=== PATIENT | male | born 1950 | race Caucasian/White ===

== ENCOUNTER 2018-09-11 13:04 | Emergency (ER) | payer OTHER ==
--- OUTSIDE RECORDS SUMMARY | 2018-09-11 13:10 | XMS REPORT | Continuity of Care Document ---
:1950 Author Organization Interface Problems Problem Status Onset Classification Date Comments Source Date Reported [facility] Active 11/19/[address] SA[facility] Active 11/19/[address] DM (<span Active Problem 12/12/2016 [facility] ID="[id number] Medical ">Confirmed</[facility] n>) GI bleeding Resolved Problem 12/12/2016 [facility] HTN (<span Active Problem 12/12/2016 [facility] ID="[id number] Medical ">Confirmed</[facility] n>) NONTRAUMATIC Active [facility] SUBARACHNOID Medical HEMORRHAGE, [facility] Medications Medication Details Route Status Patient Ordering Order Source Instructions Provider Date Hydrochlorothiazide 25 mg, 1 tab, Inactive [facility] Route: PO, Drug 2017 Medical form: TAB, Center Daily, Dosing Weight 116.364, kg, Priority: NOW, Start date: 12/09/16 6:35:00 ROOFER, Duration: 30 day, Stop date: 01/07/17 9:00:00 CDTNotes: (Same as: Hydrodiuril) With food. Aspirin 325 MG Oral 325 mg=1 tab, Active [facility] Tablet PO, Daily, # 2017 Medical 100 tab, 2 Center Refill(s) Trial Drug Trial Drug Active [facility] (galantamine v. (galantamine v. 2017 Medical placebo) placebo), See Center Instructions, TRIAL drug [will be provided to inpatient facility], # 1 caplet, Refill(s) 0 Humulin 70/30 30 unit, SUB-Q, Active 12/08[facility] TID-Before 2017 Medical Meals, 0 Center Refill(s) ondansetron 2 mg/mL 4 mg=2 mL, IVP, Active [facility] injectable solution Q8H, PRN 2017 Medical Nausea, 0 Center Refill(s) tamsulosin 0.4 mg 0.8 mg=2 cap, Active [facility] oral capsule PO, After 2017 Medical Breakfast, 0 Center Refill(s) Aspirin 325 MG Oral 325 mg=1 tab, Inactive [place] Tablet PO, Daily, # 2017 Medical 100 tab, 2 Center Refill(s) Hydrochlorothiazide 25 mg, PO, Active [place] 25 MG Oral Tablet Daily, # 180 2017 Medical tab, 2 Center Refill(s) amLODIPine 10 mg 10 mg, PO, Active [place] oral tablet Daily, # 120 2016 Medical tab, 1 Center Refill(s) tramadol 50 mg=1 tab, Active [place] hydrochloride 50 MG PO, Q6H, PRN 2017 Medical Oral Tablet Headache 6-10, Center # 30 tab, 0 Refill(s) lisinopril 20 mg 40 mg=2 tab, Active [place] oral tablet PO, [id number], # 2017 Medical 180 tab, 1 Center Refill(s) Labetalol 10 mg, 2 mL, Inactive [place] Route: IVP, 2016 Medical Drug form: INJ, Center ONCE, Dosing Weight 116.364, kg, Priority: NOW, Start date: 12/08/16 9:35:00 ROOFER, Stop date: 12/08/16 9:35:00 ROOFER Amlodipine 10 mg, 1 tab, No Longer [place] Route: PO, Drug Active 2016 Medical form: TAB, Center Daily, Dosing Weight 116.364, kg, Priority: NOW, Start date: 12/08/16 9:33:00 ROOFER, Duration: 30 day, Stop date: 01/07/17 9:00:00 CDTNotes: (Same as: Norvasc) Insulin, Aspart, 7 unit, 0.07 No Longer [place] Human mL, Route: Active 2016 Medical SUB-Q, Drug Center form: SOLN, TID-Before Meals, Dosing Weight 116.364, kg, Start date: 12/07/16 11:30:00 ROOFER, Stop date: 01/06/17 7:30:00 CDTNotes: Roll in palms of hands gently; Do not shake vigorously. (Same as: NovoLOG) "single patient use only" WASTE: F/P - Black; E - Municipal Trash Bin Stable for 28 days at room temperature. Expires in days from D ate Melatonin 3 mg, 1 tab, No Longer [facility] Route: PO, Drug Active 2016 Medical form: TAB, Center Bedtime, Dosing Weight 116.364, kg, PRN Sleep, Start date: 12/07/16 9:03:00 ROOFER, Duration: 30 day, Stop date: 01/06/17 9:02:00 CDTNotes: (Same as: Melatonin) Dextrose 50% 25 mL, Route: Inactive [facility] Syringe IVP, Dosing 2016 Medical Weight 116.364, Center kg, PRN, PRN Blood Glucose Results, Start date: 12/07/16 9:02:00 ROOFER, Duration: 30 day, Stop date: 01/06/17 10:01:00 CDT Glucagon 1 mg, Route: Inactive [facility] IM, PRN, Dosing 2016 Medical Weight 116.364, Center kg, PRN Blood Glucose Results, Start date: 12/07/16 9:02:00 ROOFER, Duration: 30 day, Stop date: 01/06/17 10:01:00 CDT Nimodipine 3 MG/ML 60 mg, 2 mL, No Longer [facility] Oral Solution Route: PO, Drug Active 2016 Medical form: SUSP, Center Q4H, Dosing Weight 116.364, kg, Start date: 12/07/16 0:00:00 ROOFER, Duration: 30 day, Stop date: 01/05/17 20:00:00 CDTNotes: ( Famotidine 20 mg, 2 mL, No Longer [facility] Route: IV, Drug Active 2016 Medical form: INJ, Center ONCE, Dosing Weight 116.364, kg, Start date: 12/06/16 23:34:00 ROOFER, Stop date: 12/06/16 23:34:00 CSTNotes: (Same as: Pepcid) Can be dilute in 5-10cc NS IVP: Slow IV push over at least 2 minutes. lisinopril 40 mg, 2 tab, No Longer [facility] Route: PO, Drug Active 2016 Medical form: TAB, Center [id number], Start date: 12/06/16 18:00:00 ROOFER, Duration: 30 day, Stop date: 01/05/17 6:00:00 CDTNotes: (Same as: Prinivil, Zestril) benazepril 40 mg, Route: Inactive [facility] PO, Drug form: 2016 Medical TAB, BID, Center Dosing Weight 116.364, kg, Start date: 12/06/16 17:00:00 ROOFER, Duration: 30 day, Stop date: 01/05/17 9:00:00 CDT Aspirin 325 MG Oral 325 mg=1 tab, No Longer [place] Tablet PO, Daily, # Active 2016 Medical 100 tab, 2 Center Refill(s), other Amlodipine 5 mg, Route: Inactive [facility] PO, Drug form: 2016 Medical TAB, Daily, Center Dosing Weight 116.364, kg, Priority: NOW, Start date: 12/06/16 12:56:00 ROOFER, Duration: 30 day, Stop date: 01/05/17 9:00:00 CDT Insulin regular 3 unit, 0.03 No Longer [place] mL, Route: Active 2016 Medical SUB-Q, Drug Center form: SOLN, TID-Before Meals, Dosing Weight 116.364, kg, PRN Blood Glucose Results, Start date: 12/06/16 11:28:00 ROOFER, Duration: 30 day, Stop date: 01/05/17 11:27:00 CDTNotes: (Same as: Humulin R) Roll in palms of hands gently; Do not shake vigorously. "single patient use only" (Restricted to patients requiring a dose > 60 units) WASTE: F/P - Black; E - Outcome Referrals Trash Bin Stable for 28 days at room temperature Expires in days from D ate Glucagon 1 mg, Route: No Longer [facility] IM, Drug form: Active 2016 Medical PDR/INJ, PRN, Center Dosing Weight 116.364, kg, PRN Blood Glucose Results, Start date: 12/06/16 11:28:00 ROOFER, Duration: 30 day, Stop date: 01/05/17 12:27:00 CDT Dextrose 50% 25 gm, 50 mL, No Longer [place] Syringe Route: IVP, Active 2017 Medical Drug Form: INJ, Center Dosing Weight 116.364, kg, PRN, PRN Blood Glucose Results, Start date: 12/06/16 11:28:00 ROOFER, Duration: 30 day, Stop date: 01/05/17 12:27:00 CDT potassium chloride 10 mEq, 50 mL, Inactive [facility] Route: IVPB, 2017 Medical Drug form: INJ, Center Q1H, Dosing Weight 116.364, kg, Total Dose=20 meq, Start date: 12/06/16 6:00:00 ROOFER, Duration: 2 doses or times, Stop date: 12/06/16 7:00:00 ROOFER, Peripheral LineNotes: (Same as: KCL) Infuse over 2 hours. potassium chloride 60 mEq, Route: Inactive [facility] PO, ONCE, 2016 Medical Dosing Weight Center 116.364, kg, Start date: 12/06/16 5:04:00 ROOFER, Stop date: 12/06/16 5:04:00 ROOFER Sodium Chloride 1,000 mL, 1,000 Inactive [place] 0.154 MEQ/ML ml/hr, Infuse 2017 Medical Injectable Solution Over: 1 hr, Center Route: IV, 1,000, Drug form: INJ, ONCE, Priority: STAT, Dosing Weight 116.364 kg, Start date: 12/03/16 10:22:00 ROOFER, Duration: 1 doses or times, Stop date: 12/03/16 10:22:00 ROOFER Sodium Chloride 500 mL, 500 Inactive [place] 0.154 MEQ/ML ml/hr, Infuse 2017 Medical Injectable Solution Over: 1 hr, Center Route: IV, 500, Drug form: INJ, ONCE, Dosing Weight 116.364 kg, Start date: 12/03/16 5:48:00 ROOFER, Stop date: 12/03/16 5:48:00 ROOFER Sodium Chloride 1,000 mL, 1,000 Inactive [facility] [place] 0.154 MEQ/ML ml/hr, Infuse 2017 Medical Injectable Solution Over: 1 hr, Center Route: IV, ONCE, Priority: STAT, Dosing Weight 116.364 kg, Start date: 12/03/16 5:47:00 ROOFER, Duration: 1 doses or times, Stop date: 12/03/16 5:47:00 ROOFER Fleet Enema 133 mL, Route: Inactive [facility] MA, Drug Form: 2017 Medical KAYLA, Dosing Center Weight 116.364, kg, ONCE, Start date: 12/03/16 2:35:00 ROOFER, Stop date: 12/03/16 2:35:00 ROOFER, For Constipation > 12 years, Pediatric Dosing Fleet Enema 133 mL, Route: Inactive [facility] MA, Drug Form: 2017 Medical SOLN, Dosing Center Weight 116.364, kg, ONCE, Start date: 12/02/16 20:43:00 ROOFER, Stop date: 12/02/16 20:43:00 ROOFER, For Constipation > 12 years, Pediatric Dosing [place] Enema 133 mL, Route: No Longer [facility] MA, Drug Form: Active 2017 Medical KAYLA, Dosing Center Weight 116.364, kg, ONCE, Start date: 12/02/16 18:47:00 ROOFER, Stop date: 12/02/16 18:47:00 ROOFER, For Constipation > 12 years, Pediatric Dosing ceFAZolin 2 gm, Route: Inactive [facility] IV, Drug form: 2017 Medical PDR/INJ, ONCE, Center Start date: 12/02/16 11:45:00 ROOFER, Stop date: 12/02/16 11:45:00 CSTNotes: (Same As: Ancef, Kefzol) MEDICATION WASTE Product Size: 1000 mg Product Wasted: ___ mg Ancef + sodium 2 gm, Route: Inactive [place] chloride 0.9% INJ IVPB, Drug 2017 Medical 100 mL form: PDR/INJ, Center ONCE, Dosing Weight 116.364, kg, Start date: 12/02/16 11:20:00 ROOFER, Duration: 1 doses or times, Stop date: 12/02/16 11:20:00 ROOFER, Surgical Prophylaxis Only; For patients Notes: (Same As: Ancef, Kefzol) MEDICATION WASTE Product Size: 1000 mg Product Wasted: ___ mg magnesium citrate 300 mL, Route: Inactive [facility] 58.2 MG/ML Oral PO, Drug Form: 2017 Medical Solution LIQ, Dosing Center Weight 116.364, kg, ONCE, Start date: 12/02/16 10:40:00 ROOFER, Stop date: 12/02/16 10:40:00 CSTNotes: (Same as: Citrate of Magnesia) Concentration: 1.745 gm / 30 mL Ancef + sodium 2 gm, Route: Inactive [place] chloride 0.9% INJ IVPB, ONCE, 2016 Medical 100 mL Dosing Weight Center 116.364, kg, Start date: 12/02/16 9:13:00 ROOFER, Duration: 1 doses or times, Stop date: 12/02/16 9:13:00 ROOFER, Surgical Prophylaxis Only; For patients Notes: (Same As: Ancef, Kefzol) Cefazolin FOR IV SET ONLY MEDICATION WASTE Product Size: 1000 mg Product Wasted: ___ mg Insulin regular 10 unit, 0.1 Inactive [place] mL, Route: 2016 [facility], Drug Center form: SOLN, Q6H, Dosing Weight 116.364, kg, Start date: 12/02/16 8:00:00 ROOFER, Duration: 30 day, Stop date: 01/01/17 6:00:00 CDTNotes: (Same as: Humulin R) Roll in palms of hands gently; Do not shake vigorously. "single patient use only" (Restricted to patients requiring a dose > 60 units) WASTE: F/P - Black; E - Municipal Trash Bin Stable for 28 days at room temperature Expires in days from D ate insulin, isophane 30 unit, 0.3 No Longer [place] mL, Route: Active 2016 [facility], Drug Center form: INJ, [id number], Dosing Weight 116.364, kg, Start date: 12/02/16 8:00:00 ROOFER, Stop date: 01/01/17 6:00:00 CDTNotes: Roll in palms of hands gently; Do not shake vigorously. (Same as: Humulin N) Do not hold insulin without contacting prescriber WASTE: F/P - Black; E - Municipal Trash Bin Stable for 28 days at room temperature Expires in days from D ate Vancomycin 1.75 gm, Route: No Longer [place] IVPB, ABXQ8H, Active 2016 Medical Dosing Weight Center 116.364, kg, Start date: 12/02/16 8:00:00 ROOFER, Duration: 30 day, Stop date: 01/01/17 0:00:00 CDTNotes: TIME CRITICAL MEDICATION (Same As: Vancocin) Infusion rate 2001 mg: infuse over 2.5 hours MEDICATION WASTE Product Size: 1000 mg Product Wasted: ___ mg Norepinephrine 16 mg, 16 mL, No Longer [place] Rate: Titrate, Active 2016 Medical Start Dose: 0.1 Center microgram/kg/mi n, Titration: 0.05 microgram/kg/mi n every 2 - 5 minutes, Goal(s): MAP >=65 mmHg, Max Dose: 2 microgram/kg/mi n, Route: IV, Dosing Weight 116.364 kg, Total Volume: 250, Start date: 12/02/16 1:...Notes: Not for direct administration - DILUTE. Protect from light. (Same as:Levophed). Administer by either central venous catheter or peripherally-in serted central catheter (PICC) line. docusate sodium 100 mg, 1 cap, No Longer [place] Route: PO, Drug Active 2016 Medical form: CAP, Center Q12H, Dosing Weight 116.364, kg, Start date: 12/01/16 21:00:00 ROOFER, Stop date: 12/31/16 9:00:00 CDTNotes: (Same as: Colace) (Do Not Crush) Vancomycin 1,500 mg, No Longer [facility] Route: IVPB, Active 2016 Medical ABXQ8H, Dosing Center Weight 116.364, kg, Start date: 12/01/16 19:00:00 ROOFER, Duration: 30 day, Stop date: 12/31/16 11:00:00 CDTNotes: TIME CRITICAL MEDICATION (Same As: Vancocin) Infusion rate 2001 mg: infuse over 2.5 hours MEDICATION WASTE Product Size: 1000 mg Product Wasted: ___ mg Insulin regular 10 unit, 0.1 Inactive [place] mL, Route: 2016 [facility] [place] [facility] SUB-Q, Drug Center form: SOLN, Q8H, Dosing Weight 116.364, kg, Start date: 12/01/16 16:00:00 ROOFER, Duration: 30 day, Stop date: 12/31/16 8:00:00 CDTNotes: (Same as: Humulin R) Roll in palms of hands gently; Do not shake vigorously. "single patient use only" (Restricted to patients requiring a dose > 60 units) WASTE: F/P - Black; E - Municipal Trash Bin Stable for 28 days at room temperature Expires in days from D ate Rocuronium 100 mg, 10 mL, Inactive [facility] Route: IVP, 2016 Medical Drug form: INJ, Center ONCE, Dosing Weight 116.364, kg, Start date: 12/01/16 13:36:00 ROOFER, Stop date: 12/01/16 13:36:00 CSTNotes: (Same as: Imani) Versed 4 mg, 4 mL, Inactive [facility] Route: IV, Drug 2016 Medical form: INJ, Center ONCE, Dosing Weight 116.364, kg, Start date: 12/01/16 13:35:00 ROOFER, Stop date: 12/01/16 13:35:00 CSTNotes: (Same as: Versed) MEDICATION WASTE Product Size: 2 mg Product Wasted: _2__ mg Vancomycin 2 gm, Route: Inactive [facility] IV, ONCE, 2016 Medical Dosing Weight Center 116.364, kg, Start date: 12/01/16 10:07:00 ROOFER, Stop date: 12/01/16 10:07:00 CSTNotes: TIME CRITICAL MEDICATION (Same As: Vancocin) Infusion rate 2001 mg: infuse over 2.5 hours MEDICATION WASTE Product Size: 1000 mg Product Wasted: ___ mg Isolyte S PH-7.4 2,000 mL, 0 Inactive [facility] (Bolus) IV ml/hr, Route: 2017 Medical IV, Drug Form: Center SOLN, Dosing Weight 116.364, kg, ONCE, Start date: 12/01/16 10:04:00 ROOFER, Stop date: 12/01/16 10:04:00 CSTNotes: (Same as: Isolyte S PH 7.4) Zosyn 3.375 gm, No Longer [place] Route: IVPB, Active 2016 Medical Drug form: Center PDR/INJ, ABXQ6H, Dosing Weight 116.364, kg, Start date: 12/01/16 10:00:00 ROOFER, Stop date: 12/07/16 23:59:00 CSTNotes: (Same as: Zosyn) Dosing based on Piperacillin component MEDICATION WASTE Product Size: 3375 mg Product Wasted: ___ mg Vancomycin 2,000 mg, Inactive [facility] Route: IVPB, 2016 Medical Drug form: INJ, Center ABXQ8H, Dosing Weight 116.364, kg, Start date: 12/01/16 10:00:00 ROOFER, Duration: 30 day, Stop date: 12/31/16 2:00:00 CDT Fentanyl 1,000 No Longer [place] microgram, 20 Active 2016 Medical mL, Rate: Center Titrate, Start Dose: 50 microgram/hr, Titration: 25 microgram/hour every 15 minutes, Goal(s): RASS -1, Max Dose: 300 microgram/hr, Route: IV, Dosing Weight 116.364 kg, Total Volume: 20, Start date: 12/01/16 9:51:00 ROOFER, D... Rocuronium 100 mg, 10 mL, Inactive [place] Route: IVP, 2016 Medical Drug form: Center SOLN, ONCE, Dosing Weight 116.364, kg, Start date: 12/01/16 9:51:00 ROOFER, Stop date: 12/01/16 9:51:00 CSTNotes: (Same as: Zemeron) Etomidate 40 mg, 20 mL, Inactive [facility] Route: IV, Drug 2016 Medical form: INJ, Center ONCE, Dosing Weight 116.364, kg, Start date: 12/01/16 9:49:00 ROOFER, Stop date: 12/01/16 9:49:00 CSTNotes: (Same as: Amidate). Per state nursing law etomidate can only be given by a nurse if patient is intubated or being intubated (unless the nurse is a CREATIVE SERVICES SPECIALIST). Norepinephrine 16 mg, 16 mL, No Longer [place] Rate: Titrate, Active 2016 Medical Start Dose: 0.1 Center microgram/kg/mi n, Titration: 0.05 microgram/kg/mi n every 2 - 5 minutes, Goal(s): MAP >=65 mmHg, Max Dose: 1 microgram/kg/mi n, Route: IV, Dosing Weight 116.364 kg, Total Volume: 250, Start date: 12/01/16 7:...Notes: Not for direct administration - DILUTE. Protect from light. (Same as:Levophed). Administer by either central venous catheter or peripherally-in serted central catheter (PICC) line. Isolyte S (PH 7.4) 1,000 mL, Rate: Inactive [place] 1000 mL 1,000 mL 1,000 ml/hr, 2016 Medical Infuse over: 1 Center hr, Route: IV, Dosing Weight 116.364 kg, Total Volume: 1,000, Start date: 12/01/16 5:58:00 ROOFER, Duration: 1 doses or times, Stop date: 12/01/16 6:57:00 CSTNotes: (Same as: Isolyte S PH 7.4) albumin human 5% 25 gm, 500 mL, Inactive [place] intravenous 500 ml/hr, 2016 Medical solution Route: IV, Drug Center Form: INJ, Dosing Weight 116.364, kg, ONCE, Start date: 12/01/16 5:58:00 ROOFER, Stop date: 12/01/16 5:58:00 CSTNotes: LOT#: Mfg: WASTE: F/P - Red; E -Red (Same as: Albuminar) "blood product derivative" Fentanyl 50 microgram, 1 No Longer [place] mL, Route: IV, Active 2016 Medical Drug form: INJ, Center Q5Min, Dosing Weight 116.364, kg, PRN Pain Score 6-10, Start date: 11/30/16 23:54:00 ROOFER, Duration: 2 doses or times, Stop date: 12/02/16 0:00:00 ROOFER, Pediatric Dosing; For procedure; > 50 kgNotes: (Same as: Sublimaze) Preservative free. Benadryl 50 mg, Route: Inactive [facility] IVP, ONCE, 2016 Medical Dosing Weight Center 116.364, kg, Start date: 11/30/16 15:29:00 ROOFER, Stop date: 11/30/16 15:29:00 ROOFER Iohexol 80 mL, Route: Inactive [place] IVP, Drug Form: 2016 Medical SOLN, Dosing Center Weight 116.364, kg, ONCALL, STAT, Start date: 11/30/16 15:17:00 ROOFER, Duration: 1 doses or times, Dose=2.2ml/kg, Max [id number] -- "To be infused by Radiology Staff ONLY" chlorhexidine 15 ml, Route: No Longer [place] gluconate 1.2 MG/ML S&SPIT, Q4H, Active 2016 [facility] [place] [facility] Mouthwash Drug form: LIQ, [place] Start date: 11/30/16 12:00:00 ROOFER, Duration: 30 day, Stop date: 12/30/16 8:00:00 CDTNotes: (Same As: Peridex) sodium chloride 1,000 mL, Rate: No Longer [facility] 0.9% 1000 ml INJ 150 ml/hr, Active 2016 [facility] 1,000 mL Infuse over: Center 6.7 hr, Route: IV, Dosing Weight 116.364 kg, Total Volume: 1,000, Start date: 11/30/16 10:24:00 ROOFER, Duration: 30 day, Stop date: 12/30/16 10:23:00 CDT Nicardipine 5 mg, 2 mL, Inactive [place] Route: 2016 Medical INTRAARTERIAL, Center Drug form: INJ, ONCE, Dosing Weight 116.364, kg, Start date: 11/30/16 8:22:00 ROOFER, Stop date: 11/30/16 8:22:00 CSTNotes: (Same as: Cardene IV) Verapamil 10 mg, 4 mL, Inactive [facility] Route: 2017 Medical INTRAARTERIAL, Center Drug form: INJ, ONCE, Dosing Weight 116.364, kg, Start date: 11/30/16 8:22:00 ROOFER, Stop date: 11/30/16 8:22:00 CSTNotes: (Same As: Calan, Isoptin) "Avoid grapefruit and grapefruit juice" nitroglycerine nitroglycerine, Inactive [place] 200 mcg, Drug 2016 Medical form: [facility], [place] Route: INTRAARTERIAL, ONCE, 11/30/16 8:21:00 ROOFER, Stop date: 11/30/16 8:21:00 ROOFER Omnipaque 300 150 mL, Route: Inactive [facility] INTRAARTERIAL, 2017 Medical Drug Form: [place] SOLN, Dosing Weight 116.364, kg, ONCE, Start date: 11/30/16 8:21:00 ROOFER, Stop date: 11/30/16 8:21:00 CSTNotes: (Same as:Omnipaque 350). WASTE: F/P - Black; E - Municipal Trash Bin sodium chloride 953 mL, Rate: No Longer [facility] 0.9% 1000 ml INJ 150 ml/hr, Active 2016 Medical 953 mL + sodium Infuse over: Center chloride 188 mEq 6.7 hr, Route: IV, Dosing Weight 116.364 kg, Total Volume: 1,000, Start date: 11/30/16 4:04:00 ROOFER, Stop date: 12/30/16 4:03:00 CDT, For IMU and ICU use only. See Order Comments!! Nimodipine 60 mg, 2 cap, No Longer [place] Route: PO, Drug Active 2016 Medical form: CAP, Q4H, Center Dosing Weight 116.364, kg, Start date: 11/30/16 4:00:00 ROOFER, Stop date: 12/30/16 0:00:00 CDTNotes: (Same as:Nimotop) Water 1000 MG/ML 953 mL, Rate: Inactive [place] Injectable Solution 100 ml/hr, 2017 Medical Infuse over: 10 Center hr, Route: IV, Dosing Weight 116.364 kg, Total Volume: 1,000, Start date: 11/30/16 3:56:00 ROOFER, Duration: 30 day, Stop date: 12/30/16 3:55:00 CDT, For IMU and ICU use only. See Order Comments!! Norepinephrine 8 mg, 8 mL, No Longer [facility] Rate: Titrate, Active 2016 Medical Start Dose: 0.1 Center microgram/kg/mi n, Titration: 0.05 microgram/kg/mi n every 2 - 5 minutes, Goal(s): MAP >=120 mmHg, Max Dose: 1 microgram/kg/mi n, Route: IV, Dosing Weight 116.364 kg, Total Volume: 250, Start date: 11/30/16 3:3...Notes: Not for direct administration - DILUTE. Protect from light. (Same as:Levophed). Administer by either central venous catheter or peripherally-in serted central catheter (PICC) line. Fentanyl 100 microgram, Inactive [facility] Route: IV, 2016 Medical ONCE, Dosing Center Weight 116.364, kg, Start date: 11/29/16 19:26:00 ROOFER, Stop date: 11/29/16 19:26:00 ROOFER Water 1000 MG/ML 953 mL, Rate: No Longer [facility] Injectable Solution 50 ml/hr, Active 2016 Medical Infuse over: 20 Center hr, Route: IV, Dosing Weight 116.364 kg, Total Volume: 1,000, Start date: 11/29/16 16:42:00 ROOFER, Duration: 30 day, Stop date: 12/29/16 16:41:00 CDT, For IMU and ICU use only. See Order Comments!! Norepinephrine 8 mg, 8 mL, No Longer [facility] Rate: Titrate, Active 2016 Start Dose: 0.1 Center microgram/kg/mi n, Titration: 0.05 microgram/kg/mi n every 2 - 5 minutes, Goal(s): MAP >=110 mmHg, Max Dose: 1 microgram/kg/mi n, Route: IV, Dosing Weight 116.364 kg, Total Volume: 250, Start date: 11/29/16 16:...Notes: (Same as:Levophed). Verapamil 10 mg, Route: Inactive [facility] INTRAARTERIAL, 2016 Medical ONCE, Dosing Center Weight 116.364, kg, Start date: 11/29/16 14:44:00 ROOFER, Stop date: 11/29/16 14:44:00 ROOFER nitroglycerine nitroglycerine, Inactive [facility] 200 mcg, Route: 2016 Medical INTRAARTERIAL, Center ONCE, 11/29/16 14:43:00 ROOFER, Stop date: 11/29/16 14:43:00 ROOFER Nicardipine 5 mg, 2 mL, Inactive [place] Route: 2017 Medical INTRAARTERIAL, Center Drug form: INJ, ONCE, Dosing Weight 116.364, kg, Start date: 11/29/16 14:43:00 ROOFER, Stop date: 11/29/16 14:43:00 CSTNotes: (Same as: Cardene IV) Verapamil 10 mg, Route: Inactive [facility] INTRAARTERIAL, 2016 Medical ONCE, Dosing Center Weight 116.364, kg, Start date: 11/29/16 14:43:00 ROOFER, Stop date: 11/29/16 14:43:00 ROOFER Milrinone Milrinone, 5 Inactive [facility] mg, Route: 2016 Medical INTRAARTERIAL, Center ONCE, 11/29/16 14:43:00 ROOFER, Stop date: 11/29/16 14:43:00 ROOFER Omnipaque 350 150 ml, Route: Inactive [facility] INTRAARTERIAL, 2016 Medical Drug Form: Center SOLN, Dosing Weight 116.364, kg, ONCE, Start date: 11/29/16 13:35:00 ROOFER, Stop date: 11/29/16 13:35:00 CSTNotes: (Same as:Omnipaque 350). WASTE: F/P - Black; E - Municipal Trash Bin Labetalol 10 mg, 2 mL, No Longer [facility] Route: IVP, Active 2016 Medical Drug form: INJ, Center Q15Min, Dosing Weight 116.364, kg, PRN Hypertension, Start date: 11/29/16 11:49:00 ROOFER, Duration: 30 day, Stop date: 12/29/16 12:48:00 CDT Hydralazine 20 mg, 1 mL, No Longer [facility] Route: IVP, Active 2016 Medical Drug form: INJ, Center Q4H, Dosing Weight 116.364, kg, PRN Hypertension, for SBP >150, Start date: 11/29/16 11:49:00 ROOFER, Duration: 30 day, Stop date: 12/29/16 11:48:00 CDTNotes: (Same as: Apresoline) Push over 5 minutes Isolyte S (PH 7.4) 3,000 mL, Rate: Inactive [facility] 1000 mL 3,000 mL 1,000 ml/hr, 2017 Medical Infuse over: 3 Center hr, Route: IV, Dosing Weight 116.364 kg, Total Volume: 3,000, Start date: 11/29/16 11:35:00 ROOFER, Duration: 1 doses or times, Stop date: 11/29/16 14:34:00 CSTNotes: (Same as: Isolyte S PH 7.4) Ancef + sodium 2 gm, Route: Inactive [facility] chloride 0.9% INJ IVPB, ONCE, 2017 Medical 100 mL Dosing Weight Center 116.364, kg, Start date: 11/29/16 11:30:00 ROOFER, Duration: 1 doses or times, Stop date: 11/29/16 11:30:00 ROOFER, Surgical Prophylaxis Only; For patients Notes: (Same As: Ancef Kefzol) Cefazolin FOR IV SET ONLY MEDICATION WASTE Product Size: 1000 mg Product Wasted: ___ mg Morphine 5.8182 mg, Inactive [facility] Route: IVPB, 2016 Medical Q4H, Dosing Center Weight 116.364, kg, PRN Pain Score 7-10, Start date: 11/29/16 11:29:00 ROOFER, Duration: 30 day, Stop date: 12/29/16 11:28:00 CDT Amlodipine 5 mg, 1 tab, No Longer [facility] Route: PO, Drug Active 2016 Medical form: TAB, Center Daily, Dosing Weight 116.364, kg, Start date: 11/29/16 9:00:00 ROOFER, Duration: 30 day, Stop date: 12/28/16 9:00:00 CDTNotes: (Same as: Norvasc) Dexamethasone 1 mg, 1 tab, No Longer [facility] Route: PO, Drug Active 2016 Medical form: TAB, Center Q12H, Dosing Weight 116.364, kg, Start date: 11/28/16 21:00:00 ROOFER, Duration: 30 day, Stop date: 12/28/16 9:00:00 CDTNotes: Give with food. (Same As: Decadron) benazepril 40 mg, 2 tab, No Longer [facility] Route: PO, Drug Active 2016 Medical form: TAB, BID, Center Dosing Weight 116.364, kg, Start date: 11/28/16 21:00:00 ROOFER, Duration: 30 day, Stop date: 12/28/16 17:00:00 CDTNotes: Non-Formulary Drug (Same As: Lotensin) Labetalol 20 mg, 4 mL, No Longer [place] Route: IVP, Active 2016 Medical Drug form: INJ, Center Q1H, Dosing Weight 116.364, kg, PRN Hypertension, Priority: Routine, Start date: 11/28/16 19:55:00 ROOFER, Duration: 30 day, Stop date: 12/28/16 20:54:00 CDT, For MAP > 130; HOLD for pulse Hydralazine 20 mg, 1 mL, No Longer [place] Route: IVP, Active 2016 Medical Drug form: INJ, Center Q4H, Dosing Weight 116.364, kg, PRN Hypertension, Start date: 11/28/16 19:54:00 ROOFER, Duration: 30 day, Stop date: 12/28/16 19:53:00 CDTNotes: (Same as: Apresoline) Push over 5 minutes insulin, isophane 25 unit, 0.25 No Longer [place] mL, Route: Active 2016 Medical SUB-Q, Drug Center form: INJ, Q8H, Dosing Weight 116.364, kg, Start date: 11/28/16 16:00:00 ROOFER, Duration: 30 day, Stop date: 12/28/16 8:00:00 CDTNotes: Roll in palms of hands gently; Do not shake vigorously. (Same as: Humulin N) Do not hold insulin without contacting prescriber WASTE: F/P - Black; E - Outcome Referrals Trash Bin Stable for 28 days at room temperature Expires in days from D ate Sodium Chloride 3 gm, 3 tab, No Longer [place] 1000 MG Oral Tablet Route: PO, Drug Active 2016 Medical form: TAB, Q8H, Center Dosing Weight 116.364, kg, Start date: 11/28/16 16:00:00 ROOFER, Duration: 30 day, Stop date: 12/28/16 8:00:00 CDT Sodium Chloride 1,000 mL, 1,000 Inactive [facility] 0.154 MEQ/ML ml/hr, Infuse 2017 Medical Injectable Solution Over: 1 hr, Center Route: IV, 1,000, Drug form: INJ, ONCE, Priority: STAT, Dosing Weight 116.364 kg, Start date: 11/28/16 11:53:00 ROOFER, Duration: 1 doses or times, Stop date: 11/28/16 11:53:00 ROOFER sodium chloride 1,000 mL, Rate: No Longer [facility] 0.9% 1000 ml INJ 150 ml/hr, Active 2017 Medical 1,000 mL Infuse over: Center 6.7 hr, Route: IV, Dosing Weight 116.364 kg, Total Volume: 1,000, Start date: 11/28/16 11:53:00 ROOFER, Stop date: 12/28/16 11:52:00 CDT Magnesium Sulfate 2 gm, 50 mL, Inactive [facility] Route: IVPB, 2016 Medical Drug form: INJ, Center ONCE, Dosing Weight 116.364, kg, Total dose=2 gm, Start date: 11/27/16 20:56:00 ROOFER, Duration: 1 doses or times, Stop date: 11/27/16 20:56:00 CSTNotes: WASTE: F/P - Sink; E - Municipal Trash Bin Water 1000 MG/ML 953 mL, Rate: No Longer [facility] Injectable Solution 50 ml/hr, Active 2016 Medical Infuse over: 20 Center hr, Route: IV, Dosing Weight 116.364 kg, Total Volume: 1,000, Start date: 11/27/16 16:10:00 ROOFER, Duration: 30 day, Stop date: 12/27/16 16:09:00 CDT, For IMU and ICU use only. See Order Comments!! Calcium Chloride 1,000 mL, 1,000 Inactive [facility] 0.0014 MEQ/ML / ml/hr, Infuse 2017 Medical Potassium Chloride Over: 1 hr, Center 0.004 MEQ/ML / Route: IV, Sodium Chloride 1,000, Drug 0.103 MEQ/ML / form: INJ, Sodium Lactate ONCE, Priority: 0.028 MEQ/ML STAT, Dosing Injectable Solution Weight 116.364 kg, Start date: 11/27/16 15:36:00 ROOFER, Duration: 1 doses or times, Stop date: 11/27/16 15:36:00 ROOFER Calcium Chloride 1,000 mL, 1,000 Inactive [facility] 0.0014 MEQ/ML / ml/hr, Infuse 2017 [facility] Potassium Chloride Over: 1 hr, [place] 0.004 MEQ/ML / Route: IV, Sodium Chloride 1,000, Drug 0.103 MEQ/ML / form: INJ, Sodium Lactate ONCE, Priority: 0.028 MEQ/ML STAT, Dosing Injectable Solution Weight 116.364 kg, Start date: 11/27/16 11:29:00 ROOFER, Duration: 1 doses or times, Stop date: 11/27/16 11:29:00 ROOFER Verapamil 10 mg, 4 mL, Inactive 11/26[facility], [facility], Dosing Weight 116.364, kg, Start date: 11/26/16 9:19:00 ROOFER, Stop date: 11/26/16 9:19:00 CSTNotes: (Same As: Neville Sun) "Avoid grapefruit and grapefruit juice" Nicardipine 5 mg, 2 mL, Inactive 11/26[facility] Route: 2017 Medical INTRAARTERIAL, [place] Drug form: INJ, ONCE, Dosing Weight 116.364, kg, Start date: 11/26/16 9:19:00 ROOFER, Stop date: 11/26/16 9:19:00 CSTNotes: (Same as: Cardene IV) nitroglycerine nitroglycerine, Inactive 11/26[facility] 200 mcg, Drug 2016 Medical form: [facility] Route: INTRAARTERIAL, ONCE, 11/26/16 9:19:00 ROOFER, Stop date: 11/26/16 9:19:00 ROOFER Fentanyl 100 microgram, Inactive 11/26[facility] Route: IV, 2017 Medical ONCE, Dosing Center Weight 116.364, kg, Start date: 11/26/16 8:59:00 ROOFER, Stop date: 11/26/16 8:59:00 ROOFER Midazolam 2 mg, Route: Inactive 11/26[facility] IVP, ONCE, 2017 Medical Dosing Weight Center 116.364, kg, Start date: 11/26/16 8:59:00 ROOFER, Stop date: 11/26/16 8:59:00 ROOFER Benadryl 12.5 mg, Route: Inactive [facility] IVP, ONCE, 2017 Medical Dosing Weight Center 116.364, kg, PRN Allergic reaction, Start date: 11/26/16 8:59:00 ROOFER Omnipaque 350 150 ml, Route: Inactive [facility] INTRAARTERIAL, 2017 Medical Dosing Weight Center 116.364, kg, ONCE, Start date: 11/26/16 8:58:00 ROOFER, Stop date: 11/26/16 8:58:00 ROOFER Sodium Chloride 1,000 mL, 1,000 Inactive [facility] 0.154 MEQ/ML ml/hr, Infuse 2017 Medical Injectable Solution Over: 1 hr, Center Route: IV, 1,000, Drug form: INJ, ONCE, Priority: STAT, Dosing Weight 116.364 kg, Start date: 11/25/16 10:27:00 ROOFER, Duration: 1 doses or times, Stop date: 11/25/16 10:27:00 ROOFER insulin, isophane 20 unit, 0.2 Inactive [facility] mL, Route: 2016 Medical SUB-Q, Drug Center form: INJ, ONCE, Dosing Weight 116.364, kg, Priority: STAT, Start date: 11/25/16 10:11:00 ROOFER, Stop date: 11/25/16 10:11:00 CSTNotes: Roll in palms of hands gently; Do not shake vigorously. (Same as: Humulin N) Do not hold insulin without contacting prescriber WASTE: F/P - Black; E - Municipal Trash Bin Stable for 28 days at room temperature Expires in days from D ate Dexamethasone 2 mg, 1 tab, No Longer [place] Route: PO, Drug Active 2016 Medical form: TAB, Center Q12H, Dosing Weight 116.364, kg, Start date: 11/24/16 21:00:00 ROOFER, Stop date: 12/24/16 9:00:00 CDTNotes: Give with food. (Same As: Decadron) insulin, isophane 10 unit, Route: Inactive [facility] SUB-Q, ONCE, 2016 Medical Dosing Weight Center 116.364, kg, Start date: 11/24/16 18:40:00 ROOFER, Stop date: 11/24/16 18:40:00 ROOFER Mannitol 100 gm, Route: Inactive [facility] IVPB, ONCE, 2016 Medical Dosing Weight Center 116.364, kg, Start date: 11/24/16 16:37:00 ROOFER, Stop date: 11/24/16 16:37:00 ROOFER Water 1000 MG/ML 914.5 mL, Rate: No Longer [facility] Injectable Solution 50 ml/hr, Active 2016 Medical Infuse over: 20 Center hr, Route: IV, Dosing Weight 116.364 kg, Total Volume: 1,000, Start date: 11/24/16 11:13:00 ROOFER, Stop date: 12/24/16 11:12:00 CDT, For IMU and ICU use only. See Order Comments!! Ofirmev 1,000 mg, 100 Inactive [facility] mL, Route: IV, 2016 Medical Drug form: INJ, Center ONCE, Dosing Weight 116.364, kg, PRN Pain Score 1-3, for > or=50 kg, Start date: 11/24/16 8:58:00 CSTNotes: Infuse over 15 minutes Do not exceed 4gm/day of acetaminophen MEDICATION WASTE Product Size: 1000 mg Product Wasted: ___ mg Reglan 10 mg, 2 mL, No Longer [facility] Route: IVP, Active 2016 Medical Drug form: INJ, Center Q6H, Dosing Weight 116.364, kg, PRN Nausea & Vomiting, Start date: 11/24/16 8:48:00 ROOFER, Duration: 30 day, Stop date: 12/24/16 8:47:00 CDTNotes: (Same as: Reglan) Hydralazine 10 mg, 0.5 mL, No Longer [facility] Route: IVP, Active 2016 Medical Drug form: INJ, Center Q4H, Dosing Weight 116.364, kg, PRN Hypertension, Start date: 11/24/16 8:47:00 ROOFER, Duration: 30 day, Stop date: 12/24/16 8:46:00 CDTNotes: (Same as: Apresoline) Push over 5 minutes Labetalol 10 mg, 2 mL, No Longer [facility] Route: IVP, Active 2017 Medical Drug form: INJ, Center Q15Min, Dosing Weight 116.364, kg, PRN Hypertension, Start date: 11/24/16 8:46:00 ROOFER, Duration: 30 day, Stop date: 12/24/16 9:45:00 CDT Sodium Chloride 500 mL, 500 Inactive [place] 0.154 MEQ/ML ml/hr, Infuse 2017 Medical Injectable Solution Over: 1 hr, Center Route: IV, 500, Drug form: INJ, ONCE, Priority: STAT, Dosing Weight 116.364 kg, Start date: 11/23/16 15:02:00 ROOFER, Duration: 1 doses or times, Stop date: 11/23/16 15:02:00 ROOFER Oxycodone 10 mg, 2 tab, No Longer [place] Hydrochloride 5 MG Route: PO, Drug Active 2016 Medical Oral Tablet form: TAB, Q3H, Center Dosing Weight 116.364, kg, PRN Pain Score 7-10, Start date: 11/23/16 9:54:00 ROOFER, Duration: 30 day, Stop date: 12/23/16 9:53:00 CDTNotes: (Same as: Roxicodone) Morphine 1 mg, 0.5 mL, No Longer [facility] Route: IVP, Active 2016 Medical Drug form: INJ, Center Q2H, Dosing Weight 116.364, kg, PRN Pain Score 7-10, Start date: 11/23/16 9:53:00 ROOFER, Duration: 30 day, Stop date: 12/23/16 9:52:00 CDTNotes: (Same as:MORPhine Sulfate) tramadol 50 mg, 1 tab, No Longer [place] hydrochloride 50 MG Route: PO, Drug Active 2016 Medical Oral Tablet form: TAB, Q4H, Center Dosing Weight 116.364, kg, PRN Pain Score 1-3, Start date: 11/23/16 9:51:00 ROOFER, Duration: 30 day, Stop date: 12/23/16 9:50:00 CDTNotes: Not to exceed 400mg/day. (Same As: Ultram) Prevacid 30 mg, 10 mL, No Longer [facility] Route: PO, Drug Active 2016 Medical form: SUSP, Center Daily, Dosing Weight 116.364, kg, Start date: 11/23/16 9:49:00 ROOFER, Duration: 30 day, Stop date: 12/23/16 9:00:00 CDTNotes: Take 1 hour before or 2 hours after meal; Expires in 14 days. Shake well before use. (Same as:Prevacid) Compounded Product - formulation not commercially available Celebrex 200 mg, 1 cap, No Longer [facility] Route: PO, Drug Active 2016 Medical form: CAP, Center Q12H, Dosing Weight 116.364, kg, Priority: STAT, Start date: 11/23/16 9:48:00 ROOFER, Duration: 30 day, Stop date: 12/23/16 9:00:00 CDTNotes: NSAID. Please check indication. Not for seizure. (Same As: CeleBREX) Sodium Chloride 1,000 mL, 1,000 Inactive [facility] 0.154 MEQ/ML ml/hr, Infuse 2016 Medical Injectable Solution Over: 1 hr, Center Route: IV, 1,000, Drug form: INJ, ONCE, Priority: STAT, Dosing Weight 116.364 kg, Start date: 11/23/16 9:21:00 ROOFER, Duration: 1 doses or times, Stop date: 11/23/16 9:21:00 ROOFER insulin, isophane 23 unit, 0.23 No Longer [facility] mL, Route: Active 2016 Medical SUB-Q, Drug Center form: INJ, Q8H, Dosing Weight 116.364, kg, Start date: 11/22/16 16:00:00 ROOFER, Duration: 30 day, Stop date: 12/22/16 8:00:00 CDTNotes: Roll in palms of hands gently; Do not shake vigorously. (Same as: Humulin N) Do not hold insulin without contacting prescriber WASTE: F/P - Black; E - Municipal Trash Bin Stable for 28 days at room temperature Expires in days from D ate Citrate of Magnesia 300 ml, Route: Inactive [facility] PO, Drug Form: 2016 Medical LIQ, Dosing Center Weight 116.364, kg, ONCE, Start date: 11/22/16 9:03:00 ROOFER, Stop date: 11/22/16 9:03:00 CSTNotes: (Same as: Citrate of Magnesia) Concentration: 1.745 gm / 30 mL Ketorolac 15 mg, 1 mL, No Longer [facility] Route: IVP, Active 2016 Medical Drug form: INJ, Center Q6H, Dosing Weight 116.364, kg, PRN Pain Score 4-6, Start date: 11/22/16 9:00:00 ROOFER, Duration: 4 day, Stop date: 11/26/16 8:59:00 CSTNotes: (Same as:Toradol) IV bolus must be given >15 seconds. Give IM administration slowly and deeply into the muscle. Not for use > 4 days. Ranitidine 150 MG 150 mg, 1 tab, No Longer [facility] Oral Tablet Route: PO, Drug Active 2016 Medical [Zantac] form: TAB, BID, Center Dosing Weight 116.364, kg, Start date: 11/22/16 9:00:00 ROOFER, Duration: 30 day, Stop date: 12/21/16 17:00:00 CDTNotes: (Same as:Zantac) Non-Formulary Item Take before or with meals Lyrica 75 mg, 1 cap, No Longer [facility] Route: PO, Drug Active 2016 Medical form: CAP, Center Q12H, Dosing Weight 116.364, kg, Priority: NOW, Start date: 11/22/16 8:58:00 ROOFER, Duration: 30 day, Stop date: 12/21/16 21:00:00 CDTNotes: (Same as: Lyrica) Sodium Chloride 1,000 mL, 1,000 Inactive [facility] 0.154 MEQ/ML ml/hr, Infuse 2017 Medical Injectable Solution Over: 1 hr, Center Route: IV, 1,000, Drug form: INJ, ONCE, Priority: STAT, Dosing Weight 116.364 kg, Start date: 11/21/16 21:25:00 ROOFER, Duration: 1 doses or times, Stop date: 11/21/16 21:25:00 ROOFER Keppra 500 mg, 1 tab, No Longer [facility] Route: PO, Drug Active 2016 Medical form: TAB, Center Q12H, Dosing Weight 116.364, kg, Start date: 11/21/16 21:00:00 ROOFER, Duration: 30 day, Stop date: 12/21/16 9:00:00 CDTNotes: (Same as:Keppra) Flomax 0.8 mg, 2 cap, No Longer [place] Route: PO, Drug Active 2016 Medical form: CAP, Center After Breakfast, Dosing Weight 116.364, kg, Priority: NOW, Start date: 11/21/16 16:18:00 ROOFER, Duration: 30 day, Stop date: 12/21/16 8:30:00 CDTNotes: (Same As: Flomax) "Do Not Crush" Miralax 17 gm, 1 pkt, No Longer [place] Route: PO, Drug Active 2016 Medical form: PWDR, [place] BID, Dosing Weight 116.364, kg, Priority: STAT, Start date: 11/21/16 10:08:00 ROOFER, Duration: 30 day, Stop date: 12/21/16 9:00:00 CDTNotes: Dissolve in 8 oz of water or juice. (Same as: Miralax) Protonix 40 mg, Route: No Longer [facility] PO, Daily, Active 2016 Medical Dosing Weight Center 116.364, kg, Start date: 11/21/16 9:00:00 ROOFER, Duration: 30 day, Stop date: 12/20/16 9:00:00 CDT Sodium Chloride 1,000 mL, 1,000 Inactive [place] 0.154 MEQ/ML ml/hr, Infuse 2017 Medical Injectable Solution Over: 1 hr, [place] Route: IV, 1,000, Drug form: INJ, ONCE, Priority: STAT, Dosing Weight 116.364 kg, Start date: 11/21/16 3:26:00 ROOFER, Duration: 1 doses or times, Stop date: 11/21/16 3:26:00 ROOFER Pepto-bismol 262 mg, 15 ml, No Longer [facility] Route: PO, Drug Active 2016 Medical Form: SUSP, Center Dosing Weight 116.364, kg, QID, PRN Indigestion, Start date: 11/20/16 22:09:00 ROOFER, Duration: 30 day, Stop date: 12/20/16 22:08:00 CDTNotes: (Same As: Pepto Bismol, Kaopectate) Tramadol 50 mg, 1 tab, No Longer [facility] Route: PO, Drug Active 2016 Medical form: TAB, Q6H, Center Dosing Weight 116.364, kg, PRN Pain Score 6-10, Start date: 11/20/16 9:46:00 ROOFER, Duration: 30 day, Stop date: 12/20/16 9:45:00 CDTNotes: Not to exceed 400mg/day. (Same As: Ultram) Amlodipine 5 mg, PO, BID, No Longer [facility] 0 Refill(s) Active 2017 [facility] Humulin 70/30 Pen SUB-Q, PRN, 0 No Longer [facility] Refill(s) Active 2016 [facility] benazepril 40 mg 40 mg=1 tab, No Longer [facility] oral tablet PO, BID, 0 Active 2016 Medical Refill(s) [place] Glipizide 5 MG Oral 5 mg=1 tab, PO, Active [facility] Tablet Daily, 0 2017 Medical Refill(s) Center multivitamin Daily, 0 No Longer [facility] Refill(s) Active 2017 [facility] Metformin 500 mg=1 tab, Active [facility] hydrochloride 500 PO, BID, 0 2017 Medical MG Oral Tablet Refill(s) Center Hydrochlorothiazide 25 mg, PO, No Longer [facility] Daily, 0 Active 2016 Medical Refill(s) Center Protonix 40 mg, 1 tab, No Longer [facility] Route: PO, Drug Active 2016 Medical form: ECTAB, Center Daily, Dosing Weight 116.364, kg, Priority: NOW, Start date: 11/20/16 9:42:00 ROOFER, Duration: 30 day, Stop date: 12/20/16 9:00:00 CDTNotes: Tablet should not be chewed or crushed. (Same as: Protonix) Ranitidine 150 MG 150 mg, 10 mL, Inactive [facility] Oral Tablet Route: PO, Drug 2017 Medical [Zantac] form: SYRP, Center Daily, Dosing Weight 116.364, kg, Start date: 11/20/16 9:00:00 ROOFER, Duration: 30 day, Stop date: 12/19/16 9:00:00 CDTNotes: (Same as:Zantac) Take before or with meals Aspirin 325 mg, 1 tab, No Longer [place] Route: PO, Drug Active 2016 Medical form: TAB, Center Daily, Dosing Weight 116.364, kg, Start date: 11/20/16 9:00:00 ROOFER, Duration: 30 day, Stop date: 12/19/16 9:00:00 CDT insulin, isophane 15 unit, 0.15 No Longer [place] mL, Route: Active 2017 Medical SUB-Q, Drug Center form: INJ, Q8H, Dosing Weight 116.364, kg, Start date: 11/20/16 8:00:00 ROOFER, Stop date: 12/20/16 0:00:00 CDTNotes: Roll in palms of hands gently; Do not shake vigorously. (Same as: Humulin N) Do not hold insulin without contacting prescriber WASTE: F/P - Black; E - Municipal Trash Bin Stable for 28 days at room temperature Expires in days from D ate heparin sodium, 5,000 unit, 1 No Longer [place] porcine 2500 UNT/ML mL, Route: Active 2016 Medical Injectable Solution SUB-Q, Drug Center form: INJ, Q8H, Dosing Weight 116.364, kg, Start date: 11/20/16 8:00:00 ROOFER, Duration: 30 day, Stop date: 12/20/16 0:00:00 CDTNotes: porcine heparin Tramadol 50 mg, 1 tab, No Longer [place] Route: PO, Drug Active 2016 Medical form: TAB, Center ONCE, Dosing Weight 116.364, kg, Start date: 11/19/16 23:30:00 ROOFER, Stop date: 11/19/16 23:30:00 CSTNotes: Not to exceed 400mg/day. (Same As: Ultram) Zofran 4 mg, 2 mL, No Longer [facility] Route: IVP, Active 2016 Medical Drug form: INJ, Center Q8H, Dosing Weight 116.364, kg, PRN Nausea, Start date: 11/19/16 21:33:00 ROOFER, Duration: 30 day, Stop date: 12/19/16 21:32:00 CDTNotes: (Same as: Zofran) MEDICATION WASTE Product Size: 4 mg Product Wasted: _0__ mg Benadryl 25 mg, 1 cap, No Longer [facility] Route: PO, Drug Active 2016 Medical form: CAP, Center ONCE, Dosing Weight 116.364, kg, PRN Itching, Start date: 11/19/16 21:00:00 CSTNotes: (Same as: Benadryl) IDS med 8 mg, 1 cap, No Longer [facility] Route: PO, Drug Active 2016 Medical form: CAP, Center [id number], Start date: 11/19/16 20:00:00 ROOFER, Duration: 90 day, Stop date: 02/17/17 8:00:00 CDT Omnipaque 300 250 mL, Route: Inactive [facility] INTRAARTERIAL, 2016 Medical Dosing Weight Center 116.364, kg, ONCE, Start date: 11/19/16 16:20:00 ROOFER, Stop date: 11/19/16 16:20:00 ROOFER Aspirin 325 MG Oral 325 mg, 1 tab, Inactive [facility] Tablet Route: OGT, 2017 Medical ONCE, Dosing Center Weight 116.364, kg, Start date: 11/19/16 14:13:00 ROOFER, Stop date: 11/19/16 14:13:00 ROOFER Dexamethasone 4 mg, Route: Inactive [facility] IV, Q6H, Dosing 2016 Medical Weight 116.364, Center kg, Start date: 11/19/16 12:00:00 ROOFER, Duration: 30 day, Stop date: 12/19/16 6:00:00 CDT Nimodipine 60 mg, 2 mL, No Longer [facility] Route: PO, Drug Active 2016 Medical form: SUSP, Center Q4H, Dosing Weight 116.364, kg, Start date: 11/19/16 12:00:00 ROOFER, Stop date: 12/19/16 8:00:00 CDTNotes: (Same as Nimodipine oral suspension 30mg/ml) Omnipaque 300 100 mL, Stop Inactive [facility] date: 11/19/162016 Medical 9:31:00 Center CSTNotes: (Same as:Omnipaque 350). WASTE: F/P - Black; E - Municipal Trash Bin Docusate 100 mg, 1 cap, No Longer [facility] Route: PO, Drug Active 2016 Medical form: CAP, Center Q12H, Dosing Weight 116.364, kg, Start date: 11/19/16 9:00:00 ROOFER, Duration: 30 day, Stop date: 12/18/16 21:00:00 CDTNotes: (Same as: Colace) (Do Not Crush) Famotidine 20 mg, 2 mL, No Longer [facility] Route: IVP, Active 2016 Medical Drug form: INJ, Center Q12H, Dosing Weight 116.364, kg, Start date: 11/19/16 9:00:00 ROOFER, Duration: 30 day, Stop date: 12/18/16 21:00:00 CDTNotes: (Same as: Pepcid) Can be dilute in 5-10cc NS IVP: Slow IV push over at least 2 minutes. Keppra 500 mg, Route: No Longer [facility] IV, BID, Dosing Active 2016 Medical Weight 116.364, Center kg, Start date: 11/19/16 9:00:00 ROOFER, Duration: 30 day, Stop date: 12/18/16 17:00:00 CDTNotes: Same as Keppra Mix with 100 mL NS, LR or D5W MEDICATION WASTE Product Size: 500 mg Product Wasted: ___ mg sennosides, RESIDENTIAL 17.2 mg, 2 tab, No Longer [facility] Route: PO, Drug Active 2016 Medical Form: TAB, Center Dosing Weight 116.364, kg, BID, Start date: 11/19/16 9:00:00 ROOFER, Duration: 30 day, Stop date: 12/18/16 17:00:00 CDTNotes: (Same as: Senokot) sodium chloride 1,000 mL, Rate: No Longer [facility] 0.9% 1000 ml INJ 75 ml/hr, Active 2016 Medical 1,000 mL Infuse over: Center 13.3 hr, Route: IV, Dosing Weight 116.364 kg, Total Volume: 1,000, Start date: 11/19/16 8:34:00 ROOFER, Duration: 30 day, Stop date: 12/19/16 8:33:00 CDT Insulin regular 15 unit, 0.15 No Longer [place] mL, Route: Active 2016 Medical SUB-Q, Drug Center form: SOLN, Sliding Scale, Dosing Weight 116.364, kg, PRN Blood Glucose Results, Start date: 11/19/16 8:03:00 ROOFER, Duration: 30 day, Stop date: 12/19/16 9:02:00 CDTNotes: (Same as: Humulin R) Roll in palms of hands gently; Do not shake vigorously. "single patient use only" (Restricted to patients requiring a dose > 60 units) WASTE: F/P - Black; E - Municipal Trash Bin Stable for 28 days at room temperature Expires in days from D ate Glucagon 1 mg, Route: No Longer [place] IM, Drug form: Active 2016 Medical PDR/INJ, PRN, Center Dosing Weight 116.364, kg, PRN Blood Glucose Results, Start date: 11/19/16 8:03:00 ROOFER, Duration: 30 day, Stop date: 12/19/16 9:02:00 CDT Dextrose 50% 25 gm, 50 mL, No Longer [place] Syringe Route: IVP, Active 2016 Medical Drug Form: INJ, Center Dosing Weight 116.364, kg, PRN, PRN Blood Glucose Results, Start date: 11/19/16 8:03:00 ROOFER, Duration: 30 day, Stop date: 12/19/16 9:02:00 CDT potassium chloride 20 mEq, 100 mL, No Longer [facility] Route: IVPB, Active 2016 Medical Drug form: INJ, Center PRN, Dosing Weight 116.364, kg, PRN Abnormal Lab Result, Via central line, Start date: 11/19/16 8:02:00 ROOFER, Duration: 30 day, Stop date: 12/19/16 9:01:00 CDT, FOR ICU USE ONLYNotes: (Same as: KCL) Infuse no faster than 10 mEq/hr if given peripherally. sodium phosphate + 45 mmol, 15 mL, No Longer [place] sodium chloride Route: IVPB, Active 2017 Medical 0.9% INJ 250 mL PRN, Dosing Center Weight 116.364, kg, PRN Abnormal Lab Result, Start date: 11/19/16 8:02:00 ROOFER, Duration: 30 day, Stop date: 12/19/16 9:01:00 CDT, FOR ICU USE ONLY Magnesium Oxide 800 mg, 2 tab, No Longer [place] Route: PO, Drug Active 2016 Medical form: TAB, PRN, Center Dosing Weight 116.364, kg, PRN Abnormal Lab Result, FOR ICU USE ONLY, Start date: 11/19/16 8:02:00 ROOFER, Duration: 30 day, Stop date: 12/19/16 9:01:00 CDTNotes: (Same as: Mag-Ox 400) Magnesium oxide [id number] elemental magnesium Dose=____mg magnesium oxide (___mg elemental magnesium) Calcium Gluconate 1 gm, 10 mL, No Longer [place] Route: IVPB, Active 2016 Medical PRN, Dosing Center Weight 116.364, kg, PRN Abnormal Lab Result, Start date: 11/19/16 8:02:00 ROOFER, Duration: 30 day, Stop date: 12/19/16 9:01:00 CDT, FOR ICU USE ONLYNotes: WASTE: F/P - Sink; E - Municipal Trash Bin Calcium Carbonate 500 mg, 1 tab, No Longer [place] 500 MG Chewable Route: PO, Drug Active 2016 Medical Tablet form: [place], Center PRN, Dosing Weight 116.364, kg, PRN Abnormal Lab Result, FOR ICU USE ONLY, Start date: 11/19/16 8:02:00 ROOFER, Duration: 30 day, Stop date: 12/19/16 9:01:00 CDTNotes: (Same As: Tums) Calcium Carbonate 500 gy=926 mg elemental calcium Dose= mg calcium carbonate ( mg elemental calcium) potassium phosphate 15 mmol, 5 mL, No Longer [place] + sodium chloride Route: IVPB, Active 2016 Medical 0.9% INJ 250 mL PRN, Dosing Center Weight 116.364, kg, PRN Abnormal Lab Result, Start date: 11/19/16 8:02:00 ROOFER, Duration: 30 day, Stop date: 12/19/16 9:01:00 CDT, FOR ICU USE ONLYNotes: (Same as: K Phosphate.) 1 mMol phoshate has 1.47 mEq potassium Infuse over 4 hours potassium 2 pkt, Route: No Longer [facility] phosphate-sodium PO, Drug Form: Active 2017 Medical phosphate 250 PDR/REC, Dosing Center mg-280 mg-160 mg Weight 116.364, oral powder for kg, PRN, PRN reconstitution Abnormal Lab Result, FOR ICU USE ONLY, Start date: 11/19/16 8:02:00 ROOFER, Duration: 30 day, Stop date: 12/19/16 9:01:00 CDTNotes: (Same as: Phos-NaK) Each 1.5 gm pkt has 250mg phosphorous. Mix w/2.5oz water and stir. Magnesium Sulfate 2 gm, 50 mL, No Longer [place] Route: IVPB, Active 2016 Medical Drug form: INJ, Center PRN, Dosing Weight 116.364, kg, PRN Abnormal Lab Result, Start date: 11/19/16 8:02:00 ROOFER, Duration: 30 day, Stop date: 12/19/16 9:01:00 CDT, FOR ICU USE ONLYNotes: WASTE: F/P - Sink; E - [facility] Trash [facility] Nimodipine 30 mg, 1 cap, Inactive [place] Route: PO, Drug 2016 Medical form: CAP, Q2H, Center Dosing Weight 116.364, kg, Start date: 11/19/16 8:00:00 ROOFER, Duration: 30 day, Stop date: 12/19/16 6:00:00 CDTNotes: (Same as:Nimotop) tube 87 iodixanol 60 mL, Route: Inactive [place] IVP, Drug Form: 2017 Medical SOLN, Dosing Center Weight 116.364, kg, ONCALL, STAT, Start date: 11/19/16 7:41:00 ROOFER, Duration: 1 doses or times, Dose=2.2ml/kg, Max [id number] -- "To be infused by Radiology Staff ONLY" Benadryl 25 mg, Route: Inactive [place] IVP, ONCE, 2017 Medical Dosing Weight Center 116.364, kg, Priority: STAT, Start date: 11/19/16 6:29:00 ROOFER, Stop date: 11/19/16 6:29:00 ROOFER Dexamethasone 10 mg, Route: Inactive [place] IVP, ONCE, 2016 Medical Dosing Weight Center 116.364, kg, Priority: STAT, Start date: 11/19/16 6:28:00 ROOFER, Stop date: 11/19/16 6:28:00 ROOFER Acetaminophen 325 2 tab, Route: No Longer [place] MG / Hydrocodone PO, Drug Form: Active 2017 Medical Bitartrate 5 MG TAB, Dosing Center Oral Tablet Weight 116.364, kg, Q4H, PRN Pain Score 4-6, Start date: 11/19/16 6:27:00 ROOFER, Duration: 30 day, Stop date: 12/19/16 6:26:00 CDTNotes: (Same as: Armour 325/5) Do not exceed 4gm/day of acetaminophen. Morphine 2 mg, 1 mL, Inactive [place] Route: IVP, 2016 Medical Drug form: INJ, Center Q1H, Dosing Weight 116.364, kg, PRN Pain Score 7-10, Start date: 11/19/16 6:27:00 ROOFER, Duration: 30 day, Stop date: 12/19/16 7:26:00 CDTNotes: (Same as:MORPhine Sulfate) Acetaminophen 650 mg, 2 tab, No Longer [place] Route: PO, Drug Active 2016 Medical form: TAB, Q4H, Center Dosing Weight 116.364, kg, PRN Pain 1-3/Temp > 99.5 F, Start date: 11/19/16 6:27:00 ROOFER, Duration: 30 day, Stop date: 12/19/16 6:26:00 CDTNotes: Do not exceed 4 gm/day. (Same as: Tylenol) Keppra 1,000 mg, Inactive [place] Route: IV, 2016 Medical ONCE, Dosing Center Weight 116.364, kg, Start date: 11/19/16 5:35:00 ROOFER, Stop date: 11/19/16 5:35:00 CSTNotes: Same as Keppra Mix with 100 mL NS, LR or D5W MEDICATION WASTE Product Size: 500 mg Product Wasted: ___ mg Ondansetron 4 mg, Route: Inactive [facility] IVP, Drug form: 2017 Medical INJ, ONCE, Center Dosing Weight 116.364, kg, Priority: STAT, Start date: 11/19/16 5:25:00 ROOFER, Stop date: 11/19/16 5:25:00 ROOFER Morphine 4 mg, Route: Inactive [facility] IVP, ONCE, 2017 Medical Dosing Weight Center 116.364, kg, Priority: STAT, Start date: 11/19/16 5:25:00 ROOFER, Stop date: 11/19/16 5:25:00 ROOFER niCARdipine 40 mg/ 40 mg, 200 mL, No Longer [facility] NS 200 ml IV Soln Rate: Titrate, Active 2016 Medical (premix) 40 mg Start Dose: 5 Center mg/hr, Titration: 2.5 mg/hr every 15 minutes, Goal(s): SBP Notes: Same as: Cardene Concentration: (0.2 mg /1 ml ) Allergies, Adverse Reactions, Alerts Substance Category Reaction Severity Reaction Status Date Comments Source type Reported iodine Assertion Drug Active [facility] Immunizations Immunization Date Given Site Status Last Updated Comments Source Results Order Name Results Value Reference Date Interpretation Comments Source Range CHEM PANEL Phosphorus 2.7 mg/dL 2.5 - 4.5 12/[address] CHEM PANEL Magnesium Lvl 2.2 mg/dL 1.8 - 2.4 12/[address] CHEM PANEL eGFR 78 12/07 Result Comment: The eGFR is calculated using the CKD-EPI formula. In most young, healthy individuals the eGFR will be >90 mL/ min/1.73m2. The eGFR declines with age. An eGFR of 60-89 may be normal in [facility] mL/min/1.7 /2016 some populations, particularly the elderly, for whom the CKD-EPI formula has not been extensively validated. Use of the eGFR is not recommended in the following populations: [address] Individuals with unstable creatinine concentrations, including patients and those with serious co-morbid conditions. Patients with extremes in muscle mass or diet. The data above are obtained from the National Kidney Disease Education Program (NKDEP) which additionally recommends that when the eGFR is used in patients with extremes of body mass index for purposes of drug dosing, the eGFR should be multiplied by the estimated BMI. CHEM PANEL Potassium Lvl 3.3 meq/L 3.5 - 5.1 12/07 [facility] CHEM PANEL Chloride Lvl 107 meq/L 95 - 109 12/07 [facility] CHEM PANEL CO2 26 meq/L 24 - 32 12/07 [facility] CHEM PANEL Calcium Lvl 8.7 mg/dL 8.5 - 10.5 12/07 [facility] CHEM PANEL Creatinine 1.01 mg/dL 0.50 - 12/07 [facility] Lvl 1.40 /2016 [facility] CHEM PANEL Sodium Lvl 142 meq/L 135 - 145 12/07 [facility] CHEM PANEL Glucose Lvl 163 mg/dL 70 - 99 12/07 [facility] CHEM PANEL BUN 11 mg/dL 7 - 22 12/07 [facility] CHEM PANEL AGAP 12.3 meq/L 10.0 - 12/07 20.0 [facility] HEMATOLOGY MPV 10.0 fL 7.4 - 10.4 12/07 [facility] HEMATOLOGY Platelet 222 K/CMM 133 - 450 12/07 [facility] HEMATOLOGY MCH 28.7 pg 27.0 - 12/07 31.0 [facility] HEMATOLOGY MCHC 33.9 g/dL 32.0 - 12/07 36.0 [facility] HEMATOLOGY RDW 15.4 % 11.5 - 03 14.5 [facility] HEMATOLOGY Hgb 12.0 g/dL 14.0 - 12/07 18.0 [facility] HEMATOLOGY Hct 35.3 % 42.0 - 12/07 54.0 [facility] HEMATOLOGY MCV 84.8 fL 80.0 - 12/07 94.0 [facility] HEMATOLOGY WBC 6.9 K/CMM 3.7 - 10.4 12/07 [facility] HEMATOLOGY RBC 4.17 M/CMM 4.70 - 03 6.10 [facility] HEMATOLOGY Segs 65.8 % 45.0 - 03 75.0 [facility] HEMATOLOGY Monocytes 16.4 % 2.0 - 12.0 12/07 [facility] HEMATOLOGY Lymphocytes 15.1 % 20.0 - 12/07 40.0 [facility] HEMATOLOGY Eosinophils 2.4 % 0.0 - 4.0 12/[address] HEMATOLOGY Lymphocytes # 1.0 K/CMM 1.0 - 5.5 12/[address] HEMATOLOGY Segs-Bands # 4.5 K/CMM 1.5 - 8.1 12/[address] HEMATOLOGY Eosinophils # 0.2 K/CMM 0.0 - 0.5 12/[address] HEMATOLOGY Monocytes # 1.1 K/CMM 0.0 - 0.8 12/[address] HEMATOLOGY Basophils 0.3 % 0.0 - 1.0 12/[address] PARATHYROID Ca Ion WB 1.07 1.05 - 12/07 [facility] PROFILE mMol/L 1. [facility] PARATHYROID Ca Norm WB 1.08 1. - 12/07 [facility] PROFILE mMol/L . [facility] CHEM PANEL eGFR 91 12/06 Result Comment: The eGFR is calculated using the CKD-EPI formula. In most young, healthy individuals the eGFR will be >90 mL/ min/1.73m2. The eGFR declines with age. An eGFR of 60-89 may be normal in [facility] mL/min/1. some populations, particularly the elderly, for whom the CKD-EPI formula has not been extensively validated. Use of the eGFR is not recommended in the following populations: [address] Individuals with unstable creatinine concentrations, including patients and those with serious co-morbid conditions. Patients with extremes in muscle mass or diet. The data above are obtained from the National Kidney Disease Education Program (NKDEP) which additionally recommends that when the eGFR is used in patients with extremes of body mass index for purposes of drug dosing, the eGFR should be multiplied by the estimated BMI. CHEM PANEL Glucose Lvl 140 mg/dL 70 - 99 12/06 [facility] [address] [place] [address] CHEM PANEL CO2 30 meq/L 24 - 32 12/[address] CHEM PANEL Chloride Lvl 104 meq/L 95 - 109 12/[address] CHEM PANEL Sodium Lvl 144 meq/L 135 - 145 12/[address] CHEM PANEL Calcium Lvl 8.5 mg/dL 8.5 - 10.5 12/[address] CHEM PANEL Potassium Lvl 3.1 meq/L 3.5 - 5.1 03/ [facility] CHEM PANEL Creatinine 0.85 mg/dL 0.50 - 03 [place] Lvl 1.40 /2016 [facility] CHEM PANEL BUN 7 mg/dL 7 - 22 12/06 [facility] CHEM PANEL AGAP 13.1 meq/L 10.0 - 03/ 20.0 [facility] CHEM PANEL Phosphorus 3.1 mg/dL 2.5 - 4.5 12/06 [facility] CHEM PANEL Magnesium Lvl 1.9 mg/dL 1.8 - 2.4 03 [facility] HEMATOLOGY MCHC 34.6 g/dL 32.0 - 03 36.0 [facility] HEMATOLOGY MCH 29.1 pg 27.0 - 03 31.0 [facility] HEMATOLOGY MCV 84.0 fL 80.0 - 12/06 94.0 [facility] HEMATOLOGY Platelet 239 K/CMM 133 - 450 03 [facility] HEMATOLOGY RDW 15.1 % 11.5 - 03 14.5 [facility] HEMATOLOGY Hct 35.5 % 42.0 - 03 54.0 [facility] HEMATOLOGY Hgb 12.3 g/dL 14.0 - 03 18.0 [facility] HEMATOLOGY RBC 4.22 M/CMM 4.70 - 0306 6.10 /2016 [facility] HEMATOLOGY WBC 7.1 K/CMM 3.7 - 10.4 12/06 [facility] HEMATOLOGY MPV 9.8 fL 7.4 - 10.4 03 [facility] HEMATOLOGY PTT 29.3 s 22.9 - 03/06 [place] 35.8 [facility] HEMATOLOGY PT 13.9 s 12.0 - 03 14.7 [facility] HEMATOLOGY INR 1.05 0.85 - 12/06 1.17 [facility] HEMATOLOGY Segs 70.3 % 45.0 - 03/06 [place] 75.0 /2017 [facility] HEMATOLOGY Lymphocytes 10.7 % 20.0 - 03/06 [place] 40.0 2017 [facility] HEMATOLOGY Basophils 0.4 % 0.0 - 1.[address] HEMATOLOGY Lymphocytes # 0.8 K/CMM 1.0 - 5.5 03/ [address] HEMATOLOGY Segs-Bands # 5.0 K/CMM 1.5 - 8.1 12/[address] HEMATOLOGY Eosinophils 2.4 % 0.0 - 4.0 03/ [address] HEMATOLOGY Monocytes 16.2 % 2.0 - 12.0 12/[address] HEMATOLOGY Eosinophils # 0.2 K/CMM 0.0 - 0.5 03/ [address] HEMATOLOGY Monocytes # 1.1 K/CMM 0.0 - 0.[address] PARATHYROID Ca Norm WB 1.12 1.05 - 12/06 [facility] PROFILE mMol/L 1. [facility] PARATHYROID Ca Ion WB 1.11 1.05 - 12/06 [facility] PROFILE mMol/L 1. [facility] ELECTROLYTE Potassium Lvl 3.1 meq/L 3.5 - 5.1 12/[address] CHEM PANEL Magnesium Lvl 1.9 mg/dL 1.8 - 2.4 12/[address] CHEM PANEL Phosphorus 2.9 mg/dL 2.5 - 4.5 12/[address] ELECTROLYTE AGAP 14.3 meq/L 10.0 - 12/05 [facility] 20.0 [facility] ELECTROLYTE Chloride Lvl 102 meq/L 95 - 109 12/[address] ELECTROLYTE Sodium Lvl 142 meq/L 135 - 145 12/[address] ELECTROLYTE CO2 29 meq/L 24 - 32 12/[address] ELECTROLYTE BUN 8 mg/dL 7 - 22 12/[address] ELECTROLYTE Glucose Lvl 206 mg/dL 70 - 99 12/[address] ELECTROLYTE Creatinine 0.54 mg/dL 0.50 - 03 [facility] Lvl 1.40 [facility] ELECTROLYTE eGFR 111 12/05 Result Comment: The eGFR is calculated using the CKD-EPI formula. In most young, healthy individuals the eGFR will be > 90 mL/min/1.73m2. The eGFR declines with age. An eGFR of 60-89 may be normal in [facility] mL/min/1.7 /2016 some populations, particularly the elderly, for whom the CKD-EPI formula has not been extensively validated. Use of the eGFR is not recommended in the following populations: [address] Individuals with unstable creatinine concentrations, including patients and those with serious co-morbid conditions. Patients with extremes in muscle mass or diet. The data above are obtained from the National Kidney Disease Education Program (NKDEP) which additionally recommends that when the eGFR is used in patients with extremes of body mass index for purposes of drug dosing, the eGFR should be multiplied by the estimated BMI. ELECTROLYTE Calcium Lvl 8.1 mg/dL 8.5 - 10.5 12/05 [facility] HEMATOLOGY Lymphocytes 15.0 % 20.0 - 12/05 [facility] 40.0 [facility] HEMATOLOGY Monocytes 13.4 % 2.0 - 12.0 12/[address] HEMATOLOGY Segs 66.6 % 45.0 - 12/05 [facility] 75.0 [facility] HEMATOLOGY Eosinophils 4.1 % 0.0 - 4.0 12/[address] HEMATOLOGY Basophils # 0.1 K/CMM 0.0 - 0.2 12/[address] HEMATOLOGY Monocytes # 1.1 K/CMM 0.0 - 0.8 12/[address] HEMATOLOGY Lymphocytes # 1.3 K/CMM 1.0 - 5.5 12/[address] HEMATOLOGY Segs-Bands # 5.6 K/CMM 1.5 - 8.1 12/[address] HEMATOLOGY Basophils 0.9 % 0.0 - 1.0 12/[address] HEMATOLOGY Eosinophils # 0.3 K/CMM 0.0 - 0.5 12/[address] HEMATOLOGY MPV 9.5 fL 7.4 - 10.4 12/[address] HEMATOLOGY Platelet 269 K/CMM 133 - 450 12/[address] HEMATOLOGY RDW 14.9 % 11.5 - 03 [facility] 14.5 [facility] HEMATOLOGY MCHC 33.9 g/dL 32.0 - 12/05 [facility] 36.0 [facility] HEMATOLOGY MCH 28.8 pg 27.0 - 12/05 [facility] 31.0 /2016 [facility] HEMATOLOGY MCV 84.8 fL 80.0 - 12/05 [facility] 94.0 [facility] HEMATOLOGY Hct 32.5 % 42.0 - 12/05 [facility] 54.0 /2016 [facility] HEMATOLOGY WBC 8.4 K/CMM 3.7 - 10.4 12/05 [facility] HEMATOLOGY Hgb 11.0 g/dL 14.0 - 12/05 [facility] 18.0 [facility] HEMATOLOGY RBC 3.83 M/CMM 4.70 - 12/05 [facility] 6.10 [facility] PARATHYROID Ca Ion WB 1.04 1.05 - 12/05 [facility] PROFILE mMol/L 1. [facility] PARATHYROID Ca Norm WB 1.10 1. - 12/05 [facility] PROFILE mMol/L 1. [facility] HEMATOLOGY Basophils # 0.1 K/CMM 0.0 - 0.2 12/04 [facility] HEMATOLOGY PTT 30.5 s 22.9 - 12/04 [facility] 35.8 [facility] HEMATOLOGY PT 14.6 s 12.0 - 12/04 [facility] 14.7 [facility] HEMATOLOGY INR 1.12 0.85 - 12/04 [facility] 1.17 [facility] Ext Upper & Ext Upper & EXAM: US BILATERAL UPPER EXTREMITY VENOUS DOPPLER 12/03 - [facility] Lower Lower Venous /2016 - [facility] Venous Doppler [place] EXAM: US BILATERAL LOWER EXTREMITY VENOUS DOPPLER [place] Doppler [place] US US Read by: Santos Rios MD Dictated Date/time: 12/04/16 08:22 DATE: 12/03/2016 10:24 AM ROOFER Electronically Signed by: Santos Rios MD 12/04/16 08:27 FINAL REPORT INDICATION: Swelling of limb ADDITIONAL INFORMATION: None. COMPARISON: None. TECHNIQUE: Multiplanar grayscale, color Doppler and spectral Doppler ultrasound of the bilateral upper and lower extremity veins. FINDINGS: Right Upper Extremity Veins: Internal Jugular: Not evaluated secondary to bandage and catheter over scan area. Subclavian: Patent. Axillary: Patent. A venous valve identified by cine images. Brachial: Patent. Basilic: Patent. Cephalic: Patent. Left Upper Extremity Veins: Internal Jugular: Patent. Subclavian: Patent. Axillary: Patent. Brachial: Patent. Basilic: Patent. Cephalic: Patent. Right Thigh Veins: Common Femoral: Patent. Femoral (SFV): Patent. Popliteal: Patent. Proximal Greater Saphenous: Patent. Proximal Deep Femoral Veins: Patent. Left Thigh Veins: Common Femoral: Patent. Femoral (SFV): Patent. Popliteal: Patent. Proximal Greater Saphenous: Patent. Proximal Deep Femoral Veins: Patent. Other: None. IMPRESSION: 1. Right internal jugular vein not evaluated secondary to overlying bandage. Otherwise, no deep venous thrombosis (DVT) within the interrogated deep venous systems of the bilateral upper and lower extremities above the calves. HEMATOLOGY Basophils # 0.1 K/CMM 0.0 - 0.2 12/03 [facility]2016 [facility] HEMATOLOGY PT 14.9 s 12.0 - 12/03 [facility] 14.7 [facility] HEMATOLOGY INR 1.15 0.85 - 12/03 [facility] 1.17 [facility] HEMATOLOGY PTT 30.7 s 22.9 - 12/03 [facility] 35.8 [facility] TOXICOLOGY Vanco Tr 15.2 ug/ml 12/[address] TOXICOLOGY Vanco Tr TND 2330 12/[address] Chest 1view Chest 1view EXAM: XR CHEST 1 VIEW 12/03 - [facility] DX DX [facility] DATE: 12/03/2016 3:00 AM ROOFER Read by: Boom Akins MD Dictated Date/time: 12/03/16 08:55 Electronically Signed by: Boom Akins MD 12/03/16 08:56 FINAL REPORT INDICATION: Abnormal chest sounds COMPARISON: Yesterday. TECHNIQUE: AP chest FINDINGS: Lines and tubes: Right IJ catheter with its tip overlying the SVC. ET tube tip is 4.8 cm above the tomas. Feeding tube extends below the inferior border of the exam. Lungs and pleura: New mild platelike atelectasis in the lung bases. No pulmonary or pleural based abnormality is identified. Heart and mediastinum: Stable mediastinal contours. IMPRESSION: 1. No significant changes. Brain wo Brain wo EXAM: CT HEAD WITHOUT CONTRAST 12/02 [facility] contrast CT contrast CT /2016 [facility] DATE: 12/02/2016 1:00 PM ROOFER Read by: Christopher Nathan MD Dictated Date/time: 12/02/16 15:03 Electronically Signed by: Christopher Nathan MD 12/02/16 15:08 FINAL REPORT INDICATION: 66 years old Male patient with history of Acute cognitive change. TECHNIQUE: Multiple axial images were obtained through the head from vertex to the skull base. Axial bone algorithm reconstruction images are provided. COMPARISON: CT head 11/30/2016 FINDINGS: Evolving large parenchymal hematoma in the right frontal lobe with areas of adjacent vasogenic edema not significantly changed compared to prior exam. Small amount of blood layering in the dependent asp ects of the lateral ventricles. Interval removal of previously identified right frontal approach ventricular shunt catheter. Residual air in the nondependent aspect of the left frontal horn. The ventric les are unchanged in size. Persistent 0.4 cm [id number] midline shift. Endovascular coiling material are again seen in the region of suprasellar cistern and left sylvian fissure. Evolving parenchymal hypodensities in bilateral frontal basal regions. IMPRESSION: 1. Evolving large right frontal parenchymal hematoma and blood layering in the dependent aspects of the lateral ventricles. Evolving parenchymal hypodensities in bilateral frontal basal regions. TOXICOLOGY Vanco Tr 7.8 ug/ml 12/[address] TOXICOLOGY Vanco Tr TND 0230 12/[address] Chest 1view Chest 1view EXAM: XR CHEST 1 VIEW 12/02 - [facility] DX - [facility] This report was dictated by a Fisher Spear/Fellow. I have personally reviewed the images as Center well as the Resident's interpretation and agree with the findings. DATE: 12/02/2016 3:00 AM ROOFER Read by: Gerard Lowry MD Resident: Gerard Lowry MD Dictated Date/time: 12/02/16 09:46 Electronically Signed by: Boom Akins MD 12/02/16 11:20 FINAL REPORT INDICATION: Abnormal chest sounds COMPARISON: Chest x-ray from the previous day. TECHNIQUE: AP chest. FINDINGS: A right-sided IJ catheter tip in the distal SVC, endotracheal tube, and feeding tube are unchanged in position. Low lung volumes resultant widening of the cardiomediastinal silhouette, bibasilar vascular crowding and platelike atelectasis. The costophrenic sulci are sharp. No focal consolidations are seen. IMPRESSION: No significant interval change compared to the prior study. Brain wo Brain wo EXAM: MRI BRAIN WITHOUT CONTRAST 12/01 - [facility] contrast contrast MRI /2016 - Medical MRI This report was dictated by a Fisher Spear/Fellow. I have personally reviewed the images as Center well as the Resident's interpretation and agree with the findings. DATE: 12/01/2016 6:10 AM ROOFER Read by: Clarence Hayes MD Resident: Clarence Hayes MD Dictated Date/time: 12/02/16 08:10 Electronically Signed by: Leah Ashraf 12/02/16 10:18 FINAL REPORT INDICATION: Acute cognitive change COMPARISON: Noncontrast CT brain from the prior day TECHNIQUE: Brain stroke protocol including axial DWI, axial FLAIR, and axial gradient echo images. IV contrast: None. FINDINGS: Restricted diffusion involving both paramedian frontal lobes anteriorly. Additional multiple punctate foci of diffusion restriction involving both parieto-occipital lobes and frontal lobes with a larger more confluent area of diffusion restriction peripherally in the right occipital lobe. These abnormalities are associated with FLAIR hyperintense signal. There is diffusion restriction associated with the right frontal hematoma which is overall unchanged in size from recent CT exam. There is no midline shift or downward herniation. The ventricles are sta ble in size. A right frontal shunt catheter traverses the left frontal horn. Susceptibility artifact from coil masses is present in the suprasellar and left supraclinoid region. IMPRESSION: 1. Acute/subacute infarcts in both CHENTE territories. 2. Multiple punctate infarcts in both parieto-occipital and frontal lobes, concerning for embolic infarcts. 3. Overall unchanged right frontal hematoma. 4. Stable decompression of the ventricles. CHEM PANEL Ketone 3.57 <=0.27 12/01 [facility] Quantitative mmol/L mmol/L /2017 [facility] Chest 1view Chest 1view EXAM: XR CHEST 1 VIEW 12/01 - [facility] DX DX /2016 - [facility] DATE: 12/01/2016 3:47 PM ROOFER Read by: René Barbour MD Dictated Date/time: 12/01/16 17:48 Electronically Signed by: René Barbour MD 12/01/16 17:50 FINAL REPORT INDICATION: Tube placement/removal/reposition COMPARISON: 12/01/2016 at 9:29 AM TECHNIQUE: AP chest IMPRESSION: 1. No significant interval changes in the lines and tubes. 2. Cardiomediastinal silhouette is normal for technique. 3. Minimal right basilar atelectatic changes. Otherwise, lungs are clear. Costophrenic sulci are sharp. 4. Osseous structures are stable. CHEM PANEL Osmolality 297 280 - 300 12/01 [facility] mOsm/kg [facility] URINE CHEM U Osmolality 708 300 - 800 12/01 [facility] mOsm/kg [facility] URINE CHEM U Creatinine 38.60 12/01 [facility] mg/dL [facility] URINE CHEM U Potassium 17.5 meq/L 12/01 [facility] [address] [place] [address] URINE CHEM U Chloride 161 meq/L 12/01 [facility] [address] [place] [address] URINE CHEM U Sodium 138 meq/L 12/01 [facility] [address] [place] [address] Chest 1view Chest 1view EXAM: XR CHEST 1 VIEW 12/01 - [facility] DX DX - [facility] DATE: 12/01/2016 8:24 AM ROOFER Read by: Boom Akins MD Dictated Date/time: 12/01/16 09:42 Electronically Signed by: Boom Akins MD 12/01/16 09:42 FINAL REPORT INDICATION: Abnormal chest sounds COMPARISON: Yesterday. TECHNIQUE: AP chest FINDINGS: Lines and tubes: There is a right IJ catheter with its tip overlying the SVC. ET tube is present with its tip about 4.6 cm above the tomas. Feeding tube extends below the inferior border of the exam. Lungs and pleura: No pulmonary or pleural based abnormality is identified. Heart and mediastinum: Stable mediastinal contours. IMPRESSION: 1. No significant changes. CARDIAC Troponin-I 0.07 ng/mL 0.00 - 12/01 [facility] ENZYMES 0.40 /2016 [facility] CARDIAC Total CK 58 unit/L 12 - 191 12/01 [facility] ENZYMES /[address] [place] [address] CARDIAC Troponin-T null 0.000 - 12/01 [facility] ENZYMES 0.100 /2016 [facility] BODY FLUIDS Protein CSF 56 mg/dL 15 - 45 12/[address] BODY FLUIDS Glucose CSF 134 mg/dL 45 - 80 12/[address] BODY FLUIDS Lactic Acid 3.0 mMol/L 0.6 - 2.2 12/01 [facility] [address] [place] [address] BODY FLUIDS WBC CSF 34 /mm3 0 - 53 12/01 [facility] [address] [place] [address] BODY FLUIDS RBC CSF 1665 /mm3 0 - 03 12/01 [facility] BODY FLUIDS Tube Num CSF xxxxxxx 12/01 [facility] (11/30/16 8:34 PM) Center BODY FLUIDS Supernat CSF Xanthoch Colorless 12/01 Medical *ABN* Center (11/30/16 8:34 PM) BODY FLUIDS Color CSF Xanthoch 3 Colorless 12/01 Result Comment: Medical *ABN* "Significant Center Findings (11/30/16 8:34 PM) called to warren gallo_at 11/30/2016 21:13__by __sam_.Read Back OK." BODY FLUIDS Clarity CSF Moderate Clear 12/01 [facility] *ABN* [place] (11/30/16 8:34 PM) BODY FLUIDS Segs CSF 15 % 0 - 6 12/01 [facility] BODY FLUIDS Monocyte CSF 38 % 15 - 45 12/01 [facility] BODY FLUIDS Lymph CSF 47 % 40 - 80 12/01 [facility] Abdomen AP Abdomen AP DX EXAM: XR ABDOMEN 1 FRONTAL VIEW 12/01 - [facility] - [facility] DATE: 12/01/2016 12:27 AM ROOFER Read by: Santos Rios MD Dictated Date/time: 12/01/16 08:31 Electronically Signed by: Santos Rios MD 12/01/16 08:33 FINAL REPORT INDICATION: Tube placement/removal/reposition ADDITIONAL INFORMATION: None. COMPARISON: KUB 11/30/2016 at 2337 hours TECHNIQUE: Single frontal view of the abdomen. FINDINGS: Lines and tubes: Repositioning of enteric tube, with distal tip advanced and overlying the 2nd/3rd stage of the duodenum with guidewire present. Lower thorax: Bibasilar atelectasis. Bowel: Mild gaseous distention of the stomach. Mild gaseous dilatation and distention of small bowel loops overlying the left lower quadrant. Gaseous distention of the colon. Solid organs: No abnormal mass or organomegaly seen. Calcifications: No abnormal calcifications found. Bones: Degenerative changes of the thoracolumbar spine. IMPRESSION: 1. Enteric tube is detailed. 2. Suspect small bowel ileus versus possible partial small bowel obstruction overlying the left lower quadrant. CARDIAC Troponin-I 0.06 ng/mL 0.00 - 12/01 [facility] ENZYMES 0.40 /2016 [facility] CARDIAC Troponin-T null 0.000 - 12/01 [facility] ENZYMES 0.100 /2016 [facility] CARDIAC Total CK 43 unit/L 12 - 191 12/01 [facility] ENZYMES /2016 [facility] Chest 1view Chest 1view EXAM: XR CHEST 1 VIEW 11/30 - [place] DX DX - [facility] DATE: 07/30/2017 at 2354 hours Read by: Gaviota Soto MD Dictated Date/time: 12/01/16 09:33 Electronically Signed by: Gaviota Soto MD 12/01/16 09:34 FINAL REPORT INDICATION: Abnormal chest sounds . Comparison is made with 4 hours earlier today FINDINGS: Cardiomediastinal silhouette, postoperative changes and right jugular central line are stable. Lung volumes are low. This produces spurious widening of the transverse diameter of the heart and mediastinum and crowding of the basal lung markings. This produces platelike atelectasis at both lung ba ses. Underlying consolidation is not excluded. The upper lungs are clear IMPRESSION: No significant interval change when compared to prior radiograph. Abdomen AP Abdomen AP DX EXAM: XR ABDOMEN 2 FRONTAL VIEWS 11/30 - [place] DX - [facility] DATE: 11/30/2016 10:37 PM ROOFER Read by: Santos Rios MD Dictated Date/time: 12/01/16 08:29 Electronically Signed by: Santos Rios MD 12/01/16 08:31 FINAL REPORT INDICATION: Tube placement/removal/reposition ADDITIONAL INFORMATION: None. COMPARISON: KUB 11/30/2016 at 1944 hours TECHNIQUE: Frontal views of the abdomen. FINDINGS: Lines and tubes: Repositioning of enteric tube with distal tip overlying the distal gastric antrum with guidewire present. The distal aspect of the enteric tube is slightly kinked. Lower thorax: Bibasilar atelectasis. Bowel: Nonobstructive bowel gas pattern. Mild gaseous distention of stomach. Solid organs: No abnormal mass or organomegaly seen. Calcifications: No abnormal calcifications found. Bones: Unchanged. IMPRESSION: 1. Enteric tube as detailed. Chest 1view Chest 1view EXAM: XR CHEST 1 VIEW 11/30 - [place] DX DX - [facility] DATE: 11/30/2016 6:24 PM ROOFER Read by: Racheal Benson MD Dictated Date/time: 11/30/16 20:39 Electronically Signed by: Racheal Benson MD 11/30/16 20:41 FINAL REPORT INDICATION: Line Reposition COMPARISON: 11/29/2016 TECHNIQUE: AP chest FINDINGS: Lines and tubes: Right IJ central line terminates in the superior vena cava near the junction of the right atrium, pulled back slightly since the comparison examination. Another tube overlies the chest, probably oxygen tubing. Electrocardiogram leads and electrodes overlie portions of the chest. Lungs and pleura: No pulmonary or pleural based abnormality is identified. Heart and mediastinum: The heart size is normal for technique. The mediastinal contours are normal. Bones: No acute bony abnormality is identified. A screw is seen projecting over the left coracoid process of the scapula. Suture anchors are seen along the margin of the left glenoid, all unchanged. IMPRESSION: No acute cardiopulmonary abnormality. Life-support tubes appear appropriately positioned. Abdomen AP Abdomen AP DX EXAM: XR ABDOMEN 1 FRONTAL VIEW 11/30 - [facility] DX /2017 [facility] DATE: 11/30/2016 7:36 PM ROOFER Read by: Santos Rios MD Dictated Date/time: 12/01/16 08:14 Electronically Signed by: Santos Rios MD 12/01/16 08:15 FINAL REPORT INDICATION: Tube placement/removal/reposition ADDITIONAL INFORMATION: None. COMPARISON: KUB 11/29/2016 at 2247 hours TECHNIQUE: Single frontal view of the abdomen. FINDINGS: Lines and tubes: Retraction of enteric tube with distal tip projecting over the mid gastric body without guidewire present. Lower thorax: Bibasilar atelectasis. Bowel: Gaseous distention of the stomach. Gas containing nondilated colon with moderate stool. Nonobstructive bowel gas pattern. Solid organs: No abnormal mass or organomegaly seen. Calcifications: No abnormal calcifications found. Bones: Unchanged. IMPRESSION: 1. Enteric tube as detailed. CARDIAC Troponin-T 0.569 0.000 - 11/30 Result [place] ENZYMES ng/mL 0.100 /2017 Comment: [facility] Critical [place] Result(s) called to Kimberly Fernandez at 11/30/2016 13:59 byMIA. Read back OK. CARDIAC Troponin-I 0.06 ng/mL 0.00 - 11/30 [place] ENZYMES 0.40 /2017 [facility] CARDIAC Total CK 41 unit/L 12 - 191 11/30 [facility] ENZYMES [facility] CHEM PANEL Lactic Acid 0.5 mMol/L 0.5 - 2.2 11/30 [facility] Lvl [facility] CHEM PANEL Procalcitonin 0.06 ng/mL 0.00 - 11/30 [facility] 0.10 [facility] CHEM PANEL Ketone 5.71 <=0.27 11/30 [facility] Quantitative mmol/L mmol/L [facility] URINE AND UA Sq Epi None Seen 11/30 [facility] URINE AND UA Blood Negative Negative 11/30 [facility] (11/30/16 11:56 AM) [place] URINE AND UA Nitrite Negative Negative 11/30 [facility] (11/30/16 11:56 AM) [place] URINE AND UA Leuk Est Negative Negative 11/30 [facility] (11/30/16 11:56 AM) [place] URINE AND UA RBC 3 /HPF 0 - 2 11/30 [facility] URINE AND UA Bili Negative Negative 11/30 [facility] Medical *NA* [place] (11/30/16 11:56 AM) URINE AND UA Mucus Many /LPF None Seen 11/30 [place] STOOL /LPF /2016 [facility] URINE AND UA pH 6.0 5.0 - 8.0 11/30 [facility] URINE AND UA Turbidity Clear Clear 11/30 [facility] (11/30/16 11:56 AM) [place] URINE AND UA Color Yellow Yellow 11/30 [facility] *NA* [place] (11/30/16 11:56 AM) URINE AND UA Protein 30 mg/dL Negative 11/30 [facility] STOOL mg/dL /2016 [facility] URINE AND UA Ketones >=150 Negative 11/30 [facility] mg/dL mg/dL [facility] URINE AND UA Spec Grav >=1.050 <=1.030 11/30 [facility] Medical *ABN* [place] (11/30/16 11:56 AM) URINE AND UA Glucose >=1000mg/d 11/30 [facility] L [facility] URINE AND UA <=1.0 0.1 - 1.0 11/30 [facility] Urobilinogen mg/dL /2016 [facility] Chest Chest EXAM: CTA CHEST WITH CONTRAST, pulmonary embolism protocol - [facility] Pulmonary Pulmonary /2017 - Medical Embolism Embolism [facility] Center [facility] DATE: 11/30/2016 Read by: Gaviota Soto MD Dictated Date/time: 12/01/16 08:15 Electronically Signed by: Gaviota Soto MD 12/01/16 08:38 FINAL REPORT INDICATION: Chest tightness evaluate for pulmonary embolism. COMPARISON: Chest radiograph dated yesterday. TECHNIQUE: Volumetric CT acquisition of the chest, during pulmonary arterial phase, after intravenous contrast. Axial, sagittal, coronal, and oblique MIP reconstructions are created at the acquisition workstation. IV Contrast: 50 mL of Visipaque 320 DLP: 1647 mGy-cm FINDINGS: Lines and tubes: There is a right jugular central line with its tip at the atriocaval junction. A feeding tube tip is in the 2nd portion of the duodenum. Heart and Mediastinum: Cardiothoracic ratio measures 13.3/28.6 cm. There is no pleural or pericardial effusion. No pneumothorax.. Measurements and appearance of the thoracic aorta are normal. At the bro e level where the ascending aorta measures 3.4 cm the pulmonary trunk measures 3.4 cm. The bolus of contrast is suboptimal with just as much contrast in the left side of the heart as in the right side of the heart. Only 50 mL of contrast were utilized. There is no pulmonary embolus in the pulmonary trunk, right or left pulmonary arteries or in the lobar pulmonary arteries. There is a possible filling defect in a right lower lobe segmental pulmonary artery (axial image 120 and series 10 image 97). There is fluid or mucus in the gravity dependent distal trachea. Otherwise trachea and central bronchi are unremarkable. Lymph Nodes: There is no hilar, mediastinal, axillary or internal mammary lymphadenopathy. Lungs: Respiratory motion blurs lung detail visibility. 1Upper abdomen: Unremarkable. Bones and soft tissues: Degenerative changes of the thoracic spine are noted with osteophytes. No destructive skeletal lesion identified. IMPRESSION: 1. Suboptimal pulmonary embolus study with poor bolus, only 50 mL of contrast utilized and motion artifact. 2. There is no pulmonary embolus in the pulmonary trunk, right or left pulmonary arteries or in the lobar pulmonary arteries. There is a possible filling defect in a right lower lobe segmental pulmonar y artery (axial image 120 and series 10 image 97). Because this is a suboptimal examination, a repeat CT pulmonary embolus study is recommended. Dr. Daly, the neuro Intensive Care Unit fellow, was notified by phone of this at 0840 hours on December 01. Fluid or mucus in the trachea. Suctioning is recommended. Angiogram Angiogram PROCEDURE: 11/30 - [facility] /2016 - Medical artery artery Cerebral Angiogram Center bilateral bilateral VR VR Read by: Rickey Flores MD Dictated Date/time: 12/11/16 11:13 CLINICAL INDICATION: Electronically Signed by: Rickey Flores MD 12/11/16 11:37 FINAL REPORT Vasospasm OPERATORS: Rickey Flores M.D. PROCEDURE AND FINDINGS: Prior to the procedure, the technical aspects of the procedure, as well as potential risks and benefits, were explained to the patient. Specifically, the risks of cerebral infarction, vessel injur y, and contrast reaction were discussed with patient's family. Written consent was then obtained. The patient was then brought to the angiography suite. General anesthesia was induced and maintaine d by the anesthesiology service. Continuous electrocardiogram, and pulse oximetry was monitored throughout the case. The patient's groins were prepped and draped in usual sterile fashion. 1% lidocaine anesthesia was administered locally. Access to the vascular system was gained in the usual way by a single-wall p uncture of the right common femoral artery using a micropuncture system. Contrast injection was made recording angiograms of the iliofemoral vessels demonstrating good placement of the arterial access a nd wide patency of the structures. A 4f Berenstein Glidecath was advanced to the proximal descending aorta. . The left vertebral artery was selected and angiographically examined over its cervical and cerebral territories. This codominant vessel demonstrated a normal course, caliber, and contour through the cer vical region. Intracranially, it gave normal origin to its PICA branch that was widely patent. It communicated normally with the basilar artery. There was no evidence of any luminal narrowing, or vaso-o cclusive change. The cerebral veins and dural sinuses were normal. The left common carotid artery was selected and angiographically examined. This vessel was widely patent through its cervical bifurcation. The carotid bulb was free of any significant change or other irregularity. The left internal carotid artery was selected and angiographically examined. This demonstrated a stable appearance of the coil complex at the left M1 level aneurysm. The aneurysm was completely occluded and the parent and distal vessels were patent. Mild luminal narrowing involving the sylvian M2 branches of the MCA and the proximal CHENTE vessels. The right vertebral artery was selected and angiographically examined over its cervical and cerebral territories. This codominant vessel demonstrated a normal course, caliber, and contour through the ce rvical region. Intracranially, it remained widely patent readily opacifying the basilar artery. There was transient reflux opacifying the diminutive, contralateral, left intradural vertebral artery. The basilar artery was widely patent and gave origin to both posterior cerebral arteries. The vessels of the posterior fossa were well opacified and widely patent. There was no evidence of any focal vascular ectasia, aneurysm, or vasospastic change. The right common carotid artery was selected and angiographically examined. This vessel was widely patent through its cervical bifurcation. The carotid bulb was free of any significant change or other i rregularity. The proximal cerebral vasculature demonstrated vasospastic change. Therefore, the diagnostic catheter was removed and replaced with a 6- Mosotho Envoy DA catheter. This was advanced to the up per cervical segment of the right internal carotid artery. The right internal carotid artery was angiographically examined. These studies demonstrated the coil complex within the anterior communicating artery aneurysm to be stable. The aneurysm remained complet donna occluded. Moderate to severe segmental luminal narrowing was seen affecting multiple distal right M1 level MCA branches as well as the distal aspect of the A1 segment of the right anterior cerebral artery and its proximal A2 branches. A 3 mm x 10 mm hyper glide microballoon catheter was coaxially introduced and advanced to the right middle cerebral arteries distal M1 angular branch and multiple balloon inflations were made. Control a ngiograms demonstrated reduced luminal narrowing through the treated segment with improved distal runoff. The microballoon catheter was advanced over its guiding wire to the A2 segment of the left anterior cerebral artery. Balloon inflations were made and additional balloon inflations were made more proxima lly through the right A1 segment as the balloon was incrementally withdrawn in overlapping staged fashion. Control angiograms were performed via the guiding catheter demonstrating reduced luminal narrow ing through the treated segments and improved distal runoff. 10 mg of intra-arterial verapamil were slowly administered over approximately 15 minutes via the guiding catheter. Control angiograms demonstrated further improvement in luminal diameters of the affected cerebral vessels. The left internal carotid artery was again selected and angiographically examined. This demonstrated generalized improvement in the mild segmental narrowings previously seen affecting the CHENTE and MCA vessels. The catheters were removed and the procedure was terminated. The catheter was removed and a Mynx device was deployed at the puncture site, affecting hemostasis without difficulty. 120 mL of Omnipaque 30 0 contrast media was used for this exam. Radiographic exposure is documented in the angiographic ledger. The patient tolerated the procedure well and there were no complications. 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 No additional aneurysm formation is are pr esent. Mild vasospastic changes were seen affecting the proximal left CHENTE and MCA vessels with more severe changes affecting the proximal right MCA and CHENTE vessels. The right-sided vasculature was effec tively treated with balloon angioplasty followed by IA verapamil. Subsequent reexamination of the left internal carotid artery circulation showed improvement in the vasospastic changes without any direct treatment. Brain wo Brain wo EXAM: CT BRAIN WITHOUT CONTRAST 11/30 [facility] contrast CT contrast CT /[address] [place] [address] DATE: 11/30/2016 6:55 AM ROOFER Read by: Leah Ashraf Dictated Date/time: 11/30/16 10:14 Electronically Signed by: Leah Ashraf 11/30/16 10:16 FINAL REPORT INDICATION: Acute cognitive change COMPARISON: Brain CT dated 11/29/2016 TECHNIQUE: Routine axial CT images of the brain were obtained. Reformatted images in the sagittal and coronal plane were included. IV contrast: None. DLP: 1262 mGy-cm FINDINGS: A right frontal parenchymal hematoma with surrounding vasogenic edema remains similar in appearance as compared to the prior exam. The right frontal ventriculostomy, which terminates near the left front al horn is stable in position. The ventricular size and the amount of intraventricular hemorrhage have not changed. Status post coiling of aneurysms at the midline and in the left supraclinoid region is again demonstrated. IMPRESSION: 1. Stable right frontal hematoma. 2. Stable residual intraventricular hemorrhage and ventricular size. HEMATOLOGY Plt Morph Normal 11/30 [facility]2016 [facility] (11/30/16 12:04 AM) [place] HEMATOLOGY RBC Morph Normal 11/30 [facility] (11/30/16 12:04 AM) [place] HEMATOLOGY Atypical 0.0 % <=0.0 % 11/30 [facility] /[address] [place] [address] HEMATOLOGY Bands 1.0 % 0.0 - 11.0 11/30 [facility] Abdomen AP Abdomen AP DX EXAM: XR ABDOMEN 2 FRONTAL VIEWS 11/29 - [facility] - [facility] DATE: 11/29/2016 10:29 PM ROOFER Read by: Santos Rios MD Dictated Date/time: 11/30/16 08:06 Electronically Signed by: Santos Rios MD 11/30/16 08:08 FINAL REPORT INDICATION: Tube placement/removal/reposition ADDITIONAL INFORMATION: None. COMPARISON: CXR 11/23/2016 TECHNIQUE: Frontal views of the abdomen. FINDINGS: Lines and tubes: Tip of enteric tube projects over the duodenal bulb with guidewire present. Lower thorax: Unremarkable where visualized. Bowel: Gaseous distention of the stomach. Gas containing nondilated colon. Stool overlying the distal traverse colon. No small bowel dilatation within the visualized abdomen. Solid organs: No abnormal mass or organomegaly seen. Calcifications: No abnormal calcifications found. Bones: Degenerative changes of the thoracolumbar spine. IMPRESSION: 1. Enteric tube as detailed. HEMATOLOGY POC Activated 183 s 11/29 [facility] Clotting Time [facility] Chest 1view Chest 1view EXAM: XR CHEST 1 VIEW 11/29 - [facility] - [facility] DATE: 11/29/2016 1815 hours Read by: Conner Linder Dictated Date/time: 11/29/16 18:52 Electronically Signed by: Conner Linder 11/29/16 18:53 FINAL REPORT INDICATION: Central Line Placement. COMPARISON: 11/23/2016 FINDINGS: Interval placement of a right IJ catheter with its tip projecting over the cavoatrial junction. The cardiomediastinal silhouette is stable. The lungs are low in volume but clear. The costophrenic sulci are sharp, without effusions. No pneumothorax seen. No acute osseous changes are seen. IMPRESSION: Right IJ catheter tip projecting over the cavoatrial junction. No new focal pulmonary opacity. Angiogram Angiogram PROCEDURE: 11/29 - [facility] cervical - Medical artery artery 1. DIAGNOSTIC CEREBRAL ANGIOGRAM: This report was dictated by a Fisher Spear/Fellow. I have personally reviewed the images as Center bilateral bilateral VR well as the Resident's interpretation and agree with the findings. VR 2. INTRAARTERIAL VASODILATOR INFUSION (see dosage below): Bilateral internal carotid artery Read by: Joaquim Cole MD Resident: Joaquim Cole MD Dictated Date/time: 11/29/16 15:24 3. 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 Follow-up cerebral angiogram is indicated to rule out vasospasm with plan for anterior vascular treatment ATTENDING: Bari Kincaid M.D. He was present and immediately available for entire procedure, performing all critical portions. Reviewed all angiographic results. FELLOW: Joaquim Hilliard M.D. PROCEDURE: Informed consent was obtained describing all the risks, benefits and alternatives of the procedure the patient was brought to the interventional suite placed in the supine position where gene ral anesthesia was administered under direction of attending anesthesiologist. The patient was then prepped and draped in sterile fashion. The Right femoral artery was accessed using single wall microp uncture technique and a 6 Mosotho sheath was placed. A 5 Mosotho Vert catheter was coaxially advanced with a 0.035 Terumo Glidewire through the sheath into aorta arch to select the below mentioned arterie s using roadmap technique. Two-dimensional cerebral angiogram runs were performed. There was evidence of moderate to severe vasospasm associated with the bilateral anterior cerebral artery . Therefore, proceeding with pharmacological angioplasty was indicated. Under close monitoring o f the systolic blood pressure, the below listed intra-arterial vasodilators were administered into the bilateral internal carotid artery in pulse fashion over a course of 10-15 minutes per vessel. The diagnostic catheter was removed and a 6 bengali Neuron guide catheter was telescoped over a long 5 bengali Vert catheter and coaxially advanced with the 0.035 Terumo Glidewire through the sheath to se lect the: Right internal carotid artery Vert catheter and wire were removed and a highly magnified roadmap of the right internal carotid artery was performed. A 4 x 10 transform balloon catheter coaxial ly advanced with a microwire through the guide catheter into the right anterior cerebral artery where under close roadmap/blank roadmap and fluorscopic monitoring balloon angioplasty was performed of the 100. Pre- and Post- pharmacological angiogram runs were performed and showed improvement in luminal diameter. After review of the angiography data, the catheter was withdrawn. Right femoral artery angiogram was performed and the catheter was removed. The femoral artery sheath was removed followed by applicatio n of Application of Mynx closure device. Post procedure neurological examination was at the patient's baseline. The patient was was then transferred to interventional holding area for post procedure care. MEDICATIONS: 0.5% Lidocaine SQ 20 cc 1 mg Versed 50 micrograms Fentanyl 3000 units of heparin IV 200 micrograms of Nitroglycerine 10 mg Verapamil IA 5 mg Nicardipine IA CONTRAST: Omnipaque 300 total 120 cc. RADIATION DOSE: Cumulative Air KERMA Frontal: 4870 mGy Cumulative Air KERMA Lateral: 1528 mGy FLUOROSCOPY TIME: 40.3 minutes Tasks: 1. Right femoral artery catheterization and 2-D angiogram run 2. Right internal carotid artery catheterization followed by 2-D angiogram 3. Left internal carotid artery catheterization followed by 2-D angiogram run 4. Left vertebral artery catheterization followed by 2-D angiogram run 5. Right internal cerebral artery superselective catheterization using a transform balloon 6. Right anterior cerebral artery balloon angioplasty 7. Application of Mynx closure device PRE- TREATMENT FINDINGS: 1- Right internal carotid artery: Right internal carotid artery injection revealed brisk opacification of the right internal carotid artery, right middle cerebral artery and right anterior cerebral kina ry. There is evidence of stable coil embolization of the previously described anterior corticated artery aneurysm. There is evidence of moderate to severe vasospasm associated with the anterior cerebral artery with no flow limitation. Venous phase within normal 2- Left internal carotid artery: Left internal carotid artery injection reveals opacification of the left internal carotid artery, left anterior cerebral artery and left middle cerebral artery . There i s evidence of stable coil embolization of the previously described middle cerebral artery aneurysm. There is evidence of mild vasospasm associated with the right anterior cerebral artery with no flow limitation. Venous phase within normal 3- Left vertebral artery: Left vertebral artery injection reveals brisk opacification of the left vertebral artery, left posterior inferior cerebellar artery, basilar trunk, bilateral anterior inferior cerebellar artery, bilateral superior cerebellar artery and bilateral posterior cerebral artery . Capillary and venous phases within normal POST-TREATMENT FINDINGS: 1- right internal carotid artery : Right internal carotid artery injection revealed brisk opacification of the right internal carotid artery, right middle cerebral artery and right anterior cerebral art maria teresa . There is evidence of improved on the right anterior cerebral artery caliber as well as the flow hemodynamic after the Intra-Op arterial vasodilator infusion and balloon angioplasty . 2- left internal carotid artery : Left internal carotid artery injection revealed brisk opacification of the left internal carotid artery, left middle cerebral artery and left anterior cerebral artery. 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 - Moderate to severe vasospasm associated with the right anterior cerebral artery - Right visceral associated with the left anterior cerebral artery - Successful bilateral internal carotid artery intra-arterial vasodilator infusion and right anterior cerebral artery balloon angioplasty with improved flow hemodynamic Brain wo Brain wo 11/29 - [facility] contrast CT contrast CT /2016 - [facility] EXAM: CT head without contrast Read by: Chago Dickinson MD Dictated Date/time: 11/29/16 08:52 Electronically Signed by: Chago Dickinson MD 11/29/16 08:57 FINAL REPORT DATE: 11/29/2016 INDICATION: Intracranial hemorrhage. FINDINGS: Noncontrast CT images of the head are compared to a study dated 11/24/2016. Over the interval, there has been little important change: Small amounts of hemorrhage continue to resolve in the occipital horns. The ventricles are decompressed by catheter traversing the right fronta l lobe with its tip in the left lateral ventricle. There is a resolving hematoma surrounding the shunt tract in the right frontal lobe white matter. The brain is otherwise stable in appearance. Changes of endovascular aneurysm treatment are noted in the interhemispheric fissure. The paranasal sinuses and mastoids are clear. IMPRESSION: Slowly resolving intracranial hemorrhages. BLOOD BANK ABO/Rh A POS 11/28 [facility] RESULTS /2016 [facility] BLOOD BANK Antibody Scrn Negative 11/28 [facility] RESULTS /2016 [facility] (11/28/16 5:50 PM) Center CHEM PANEL Lactic Acid 0.8 mMol/L 0.5 - 2.2 11/28 [facility] Lvl /2016 [facility] Angiogram Angiogram PROCEDURE: 11/26 - [facility] cervical cervical /2016 - Medical artery artery 1. DIAGNOSTIC CEREBRAL ANGIOGRAM: Right internal carotid artery, left internal carotid artery, left vertebral artery This report was dictated by a Fisher Spear/Fellow. I have personally reviewed the images as Center bilateral bilateral VR well as the Resident's interpretation and agree with the findings. VR 2. 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 ATTENDING: Bari Kincaid M.D. He was present and immediately available for entire procedure, performing all critical portions. Reviewed all angiographic results. FELLOW: Hermilo Pozo M.D. PROCEDURE: Informed consent was obtained describing all the risks, benefits and alternatives of the procedure the patient was brought to the interventional suite placed in the supine position where gene ral anesthesia was administered under direction of attending anesthesiologist. The patient was then prepped and draped in sterile fashion. The Right femoral artery was accessed using single wall microp uncture technique and a 6 Mosotho sheath was placed. A 5 Mosotho Vert catheter was coaxially advanced with a 0.035 Terumo Glidewire through the sheath into aorta arch to select the below mentioned arterie s using roadmap technique. Two-dimensional and selective 3-D cerebral angiogram runs were performed. There was moderate vasospasm involving the right CHENTE circulation.. Therefore, proceeding with intra-arterial vasodilator therapy was indicated. Under close monitoring of the systolic blood pressure, the below listed intra-arterial vasodilators were administered into the none in pulse fashion over a course of 10-15 minutes per vessel. Pre- and Post- TREATMENT angiogram runs were performed and showed improvement in luminal diameter. After review of the angiography data, the catheter was withdrawn. Right femoral artery angiogram was performed and the catheter was removed. The femoral artery sheath was removed followed by applicatio n of Application of Mynx closure device. Post procedure neurological examination was at the patient's baseline. The patient was was then transferred to interventional holding area for post procedure care. MEDICATIONS: 0.5% Lidocaine SQ 20 cc 1 mg Versed 50 micrograms Fentanyl 3000 units of heparin IV 200 micrograms of Nitroglycerine x 1 10 mg Verapamil IA x 1 5 mg Nicardipine IA x 1 CONTRAST: Omnipaque 300 total 100 cc. RADIATION DOSE: Cumulative Air KERMA Frontal: 784.38 mGy Cumulative Air KERMA Lateral: 242.26 mGy FLUOROSCOPY TIME: 6.7 minutes Tasks: Right femoral artery catheterization and 2-D angiogram run Right internal carotid artery catheterization and 2-D angiogram run Left internal carotid artery catheterization and 2-D angiogram run Application of Mynx closure device PRE- TREATMENT FINDINGS: Right internal carotid artery: Right internal carotid artery injection revealed good filling of the petrous, cavernous and supraclinoid segments with no significant spasm. There is normal filling of the right MCA circulation. The right anterior cerebral artery demonstrates moderate vasospasm in its distal segment and moderate vasospasm in the proximal right A2. Normal parenchymal and venous phases pre sent. Given the evidence of moderate vasospasm a decision was made to infuse vasodilator drugs into the right cervical internal carotid artery. Left internal carotid artery: Left internal carotid artery injection reveals opacification of the petrous, cavernous and supraclinoid segments with no significant spasm. There is filling of a nondomina nt left anterior cerebral artery with mild spasm. Left middle cerebral artery demonstrates normal filling with no significant vasospasm. There is patency of the early frontal branch associated with the left M1 segment and unchanged configuration of the coil mass from the recently coiled left M1 EFB aneurysm. Left vertebral artery: Left vertebral artery is codominant vertebral artery has a normal V3 and V4 segments. There is good cross filling of the right vertebral artery and both PICAs. There is normal rochelle earance basilar artery and symmetric filling of both merchandise manager and cerebellar arteries. POST-TREATMENT FINDINGS: There is a good response to vasodilator therapy and there is minimal residual spasm after treatment of the right CHENTE circulation. IMPRESSION: 66-year-old male with subarachnoid hemorrhage from recent coiling of anterior communicating artery aneurysm and left MCA M1 segment EFB aneurysm. The patient presents for 7 day follow-up surveillance cerebral angiogram. 1. Evidence of moderate vasospasm involving the right A1 and proximal A2 segments. The right internal carotid artery treated with nicardipine, verapamil and nitroglycerin with good response to therapy. 2. No significant vasospasm involving the left anterior and middle cerebral artery circulation as well as the vertebrobasilar circulation and hence no further treatment completed. 3. Mynx vascular closure device used for groin hemostasis. BLOOD BANK Antibody Scrn Negative 11/25 [facility] (11/25/16 12:48 AM) [place] BLOOD BANK ABO/Rh A POS 11/25 [facility] Brain wo Brain wo EXAM: CT HEAD WITHOUT CONTRAST 11/24 - [facility] contrast CT contrast CT /2016 - [facility] DATE: 11/24/2016 4:36 PM ROOFER Read by: Christopher Nathan MD Dictated Date/time: 11/24/16 17:29 Electronically Signed by: Christopher Nathan MD 11/24/16 17:32 FINAL REPORT INDICATION: 66 years old Male patient with history of Bleeding. TECHNIQUE: Multiple axial images were obtained through the head from vertex to the skull base. Axial bone algorithm reconstruction images are provided. COMPARISON: CT head 11/24/2016 at 0937 hours FINDINGS: Evolving intraparenchymal hematoma in the right frontal lobe not significantly changed compared to prior exam. Subdural hematoma along the falx is unchanged. Scattered subarachnoid hemorrhage along the bilateral cingulate gyri is again identified. The ventricles are slightly expanded compared to prior exam. The right frontal approach ventricular shunt catheter is unchanged in position. The zhou-white matter differentiation is otherwise maintained. Posttreatment changes of the endovascular embolizations are again identified resulting in streak metallic artifact limiting evaluation of the adjacent brain parenchyma.. IMPRESSION: 1. Mild interval expansion of the ventricles. Otherwise , no significant interval change compared to prior exam. BODY FLUIDS Protein CSF 72 mg/dL 15 - 45 11/24 Result Comment: Medical "Significant Center Findings called to Amy Carrillo _at 11/25/2016 09:18__by lwb __.Read Back OK." BODY FLUIDS Glucose CSF 88 mg/dL 45 - 80 11/24 [facility] BODY FLUIDS Supernat CSF Xanthoch 4 Colorless 11/24 Result Comment: Medical *ABN* "Significant Center Findings (11/24/16 10:05 AM) called to Amy Moctezuma at 11/25/2016 09:29 by CN. Read Back OK." BODY FLUIDS Segs CSF 71 % 0 - 6 11/24 [facility] BODY FLUIDS RBC CSF 95442 /mm3 0 - 03 11/24 [facility] BODY FLUIDS WBC CSF 94 /mm3 0 - 53 11/24 [facility] BODY FLUIDS Comment CSF Occasional 11/24 [facility] s present. BODY FLUIDS Macrophage 1 % 11/24 [facility] BODY FLUIDS Lymph CSF 12 % 40 - 80 11/24 [facility] BODY FLUIDS Monocyte CSF 16 % 15 - 45 11/24 [facility] BODY FLUIDS Color CSF Red Colorless 11/24 Medical *ABN* [place] (11/24/16 10:05 AM) BODY FLUIDS Tube Num CSF xxxxxxx 11/24 [facility] (11/24/16 10:05 AM) [place] BODY FLUIDS Clarity CSF Moderate Clear 11/24 [facility] *ABN* [place] (11/24/16 10:05 AM) URINE AND UA <=1.0 0.1 - 1.0 11/24 [facility] Urobilinogen mg/dL [facility] URINE AND UA Sq Epi None Seen 11/24 [facility] URINE AND UA Color Light Yellow Yellow 11/24 [facility] Medical *NA* [place] (11/24/16 10:05 AM) URINE AND UA Mucus Few /LPF None Seen 11/24 [facility] STOOL /LPF /2016 [facility] URINE AND UA Nitrite Negative Negative 11/24 [facility] (11/24/16 10:05 AM) [place] URINE AND UA Blood Negative Negative 11/24 [facility] (11/24/16 10:05 AM) [place] URINE AND UA RBC 3 /HPF 0 - 2 11/24 [facility] URINE AND UA WBC 2 /HPF 0 - 5 11/24 [facility] URINE AND UA Leuk Est Negative Negative 11/24 [facility] (11/24/16 10:05 AM) [place] URINE AND UA pH 6.0 5.0 - 8.0 11/24 [facility] URINE AND UA Spec Grav 1.007 <=1.030 11/24 [facility] URINE AND UA Turbidity Clear Clear 11/24 [facility] (11/24/16 10:05 AM) [place] URINE AND UA Bili Negative Negative 11/24 [facility] Medical *NA* [place] (11/24/16 10:05 AM) URINE AND UA Ketones 60 mg/dL Negative 11/24 [facility] STOOL mg/dL [facility] URINE AND UA Glucose 150 mg/dL Negative 11/24 [facility] STOOL mg/dL [facility] URINE AND UA Protein Negative Negative 11/24 [facility] STOOL mg/dL mg/dL [facility] Brain wo Brain wo EXAM: CT BRAIN WITHOUT CONTRAST 11/24 [facility] contrast CT contrast CT [facility] DATE: 11/24/2016 9:35 AM ROOFER Read by: Leah Ashraf Dictated Date/time: 11/24/16 10:25 Electronically Signed by: Leah Ashraf 11/24/16 10:29 FINAL REPORT INDICATION: Altered level of consciousness COMPARISON: Brain CT and CTA dated 11/19/2016 TECHNIQUE: Routine axial CT images of the brain were obtained. Reformatted images in the sagittal and coronal plane were included. IV contrast: None. DLP: 1162 mGy-cm FINDINGS: Interval coiling of aneurysms in the anterior communicating artery and left MCA bifurcation was performed. The subarachnoid hemorrhage in the basal cisterns has significantly decreased as compared to [facility] 2016. A right frontal ventriculostomy catheter was placed, crossing the cingulate gyri and terminating in the left caudate nucleus. A large parenchymal hematoma surrounding the catheter in th e right frontal lobe, with significant vasogenic edema has developed in the interval, measuring 3.5 x 4.8 x 4 cm AP x Lat x CC. 4 mm shift of the septum pellucidum toward the left identified. IMPRESSION: 1. Interval development of a large parenchymal hematoma in the right frontal lobe, in the trajectory of the right frontal ventriculostomy. 2. Interval coiling of aneurysms of the anterior communicating artery and left MCA bifurcation. URINE CHEM U Osmolality 370 300 - 800 11/23 [facility] mOsm/kg [facility] URINE CHEM U Sodium 18 meq/L 11/23 [facility] [address] [place] [address] Chest 1view Chest 1view EXAM: XR CHEST 1 VIEW 11/23 - [facility] DX DX [facility] DATE: 11/23/2016 3:00 AM ROOFER Read by: Cindy Pizarro MD Dictated Date/time: 11/23/16 08:45 Electronically Signed by: Cindy Pizarro MD 11/23/16 10:12 FINAL REPORT INDICATION: Abnormal chest sounds. FINDINGS: Comparison is made to yesterday morning. The cardiomediastinal silhouette is stable. The lungs are low in volume but clear. The costophrenic sulci are sharp, without effusions. IMPRESSION: The lungs are low in volume but clear. Chest 1view Chest 1view EXAM: XR CHEST 1 VIEW 11/22 - [facility] DX DX - [facility] DATE: 11/22/2016 9:04 AM ROOFER Read by: Cindy Pizarro MD Dictated Date/time: 11/22/16 12:02 Electronically Signed by: Cindy Pizarro MD 11/22/16 16:16 FINAL REPORT INDICATION: Fever. FINDINGS: Comparison is made to November 19. The cardiomediastinal silhouette is stable. The lungs are low in volume but clear. The costophrenic sulci are sharp, without effusions. The endotracheal tube is been removed. IMPRESSION: 1. Extubated. 2. The lungs are low in volume but clear. CHEM PANEL Bili Indirect 0.2 mg/dL 0.0 - 1.0 11/[address] CHEM PANEL Bili Direct 0.1 mg/dL 0.0 - 0.3 11/[address] CHEM PANEL Bili Total 0.3 mg/dL 0.2 - 1.3 11/[address] CHEM PANEL AST 15 unit/L 0 - 37 11/[address] CHEM PANEL Alk Phos 59 unit/L 39 - 136 11/[address] CHEM PANEL Globulin 3.3 g/dL 2.7 - 4.2 11/[address] CHEM PANEL ALT 20 unit/L 0 - 65 11/[address] CHEM PANEL A/G Ratio 0.8 0.7 - 1.6 11/[address] CHEM PANEL Total Protein 6.1 g/dL 6.4 - 8.4 11/[address] CHEM PANEL Albumin Lvl 2.8 g/dL 3.5 - 5.0 11/[address] BODY FLUIDS Protein CSF 165 mg/dL 15 - 45 11/22 Result Comment: Medical Critical Center Result(s) called to Rayna Dumont at 11/22/2016 08:57 byJP. Read back OK. BODY FLUIDS Lactic Acid 2.6 mMol/L 0.6 - 2.2 11/22 [facility] BODY FLUIDS Glucose CSF 81 mg/dL 45 - 80 11/22 [facility] BODY FLUIDS RBC CSF 530026 0 - 03 11/22 [facility] BODY FLUIDS Segs CSF 32 % 0 - 6 11/22 [facility] BODY FLUIDS WBC CSF 16 /mm3 0 - 53 11/22 [facility] BODY FLUIDS Color CSF Bloody Colorless 11/22 Medical *ABN* [place] (11/22/16 1:08 AM) BODY FLUIDS Clarity CSF Marked Clear 11/22 [facility] *ABN* [place] (11/22/16 1:08 AM) BODY FLUIDS Supernat CSF Xanthoch 5 Colorless 11/22 Result Comment: Medical *ABN* "Significant Center Findings (11/22/16 1:08 AM) called to Kimberly Bonilla, Charge_at 11/23/2016 10:47_by Ebby_.Read Back OK." BODY FLUIDS Tube Num CSF xxxxxxx 11/22 [facility] (11/22/16 1:08 AM) [place] BODY FLUIDS Comment CSF RBC 11/22 [facility] Medical s present. Center BODY FLUIDS Macrophage 4 % 11/22 [facility] BODY FLUIDS Eos CSF 5 % 11/22 [facility] BODY FLUIDS Monocyte CSF 23 % 15 - 45 11/22 [facility] BODY FLUIDS Lymph CSF 40 % 40 - 80 11/22 [facility] URINE AND UA RBC 2 /HPF 0 - 2 11/22 [facility] STOOL [facility] URINE AND UA Amorph Occasional None Seen 11/22 [facility] Susanne /HPF /HPF /2016 [facility] URINE AND UA Sq Epi None Seen 11/22 [facility] /2016 [facility] URINE AND UA Glucose >=1000mg/d 11/22 [facility] L [facility] URINE AND UA Spec Grav <=1.000 <=1.030 11/22 [facility] STOOL
*NA*< Medical br/>(2/19[facility] 17 6:14 PM) URINE AND UA <=1.0 0.1 - 1.0 11/22 [facility] Urobilinogen mg/dL /2016 [facility] URINE AND UA Color Colorless Yellow 11/22 [facility] *NA* [place] (11/21/16 6:14 PM) URINE AND UA Turbidity Slight Clear 11/22 [facility] *ABN* [place] (11/21/16 6:14 PM) URINE AND UA Bili Negative Negative 11/22 [facility] *NA* [place] (11/21/16 6:14 PM) URINE AND UA Blood Negative Negative 11/22 [facility] (11/21/16 6:14 PM) [place] URINE AND UA pH 6.0 5.0 - 8.0 11/22 [facility] URINE AND UA Protein Negative Negative 11/22 [facility] mg/dL mg/dL [facility] URINE AND UA Ketones 20 mg/dL Negative 11/22 [facility] mg/dL [address] [place] [address] URINE AND UA Leuk Est Negative Negative 11/22 [facility] (11/21/16 6:14 PM) [place] URINE AND UA Nitrite Negative Negative 11/22 [facility] (11/21/16 6:14 PM) [place] URINE CHEM U Sodium 81 meq/L 11/21 [facility] URINE CHEM U Osmolality 409 300 - 800 11/21 [facility] mOsm/kg [facility] CHEM PANEL Osmolality 292 280 - 300 11/21 [facility] mOsm/kg [facility] HEMATOLOGY Ly30 0.0 % 0.0 - 7.5 11/19 [facility] HEMATOLOGY G-value 13.2 K 4.5 - 11.0 11/19 [facility] d/sc [facility] HEMATOLOGY Coag Index 2.8 -3.0-3.0 - 11/19 [facility] 3.0 [facility] HEMATOLOGY K-time 1.0 min 1.0 - 3.0 11/19 [facility] HEMATOLOGY R-time 4.0 min 5.0 - 10.0 11/[address] HEMATOLOGY TEG Data See Note 11/19 [facility] (11/19/16 5:14 PM) [place] HEMATOLOGY Max Amp 72.6 mm 50.0 - 11/19 [facility] [place] 70.0 [facility] HEMATOLOGY Angle 61.2 53.0 - 11/19 [facility] degrees 72.0 [facility] HEMATOLOGY TEG Interp Thrombelas 11/19 [facility] tograph [facility] show shortened value of R and increased value of MA. These findings are suggestive of platelet and enzymatic hypercoagu lation which may be seen in early phase of DIC. Monitor for DIC with DIC panel may be indicated. CPT:14176 SPECIAL Hgb A1C 10.3 % <=5.6 % 11/19 [facility] CHEMISTRY [facility] HEMATOLOGY POC Activated 199 s 11/19 [facility] Clotting Time [facility] HEMATOLOGY POC Activated 237 s 11/19 [facility] Clotting Time [facility] Chest 1view Chest 1view EXAM: XR CHEST 1 VIEW 11/19 - [facility] DX DX - [facility] DATE: 11/19/2016 5:01 PM ROOFER Read by: Juana Wilson MD PHD Dictated Date/time: 11/19/16 18:24 Electronically Signed by: Juana Wilson MD PHD 11/19/16 18:26 FINAL REPORT INDICATION: Coughing COMPARISON: The same day at 0343 hours TECHNIQUE: AP chest FINDINGS: There is interval placement of an endotracheal tube with tip 5 cm above the tomas. The lungs are clear without consolidation or pleural effusion. The cardiomediastinal silhouette is stable. IMPRESSION: Interval intubation with tip of endotracheal tube 5 cm above the tomas. No acute abnormality identified. HEMATOLOGY K-time Rapid 0.8 min 0.6 - 2.3 11/19 [facility] HEMATOLOGY Angle Rapid 78 degrees 64 - 80 11/19 [facility]2016 [facility] HEMATOLOGY G-value Rapid 14.6 K 5.0 - 11.6 11/19 [facility] d/sc [facility] HEMATOLOGY Max Amplitude 75 mm 52 - 71 11/19 [facility]2016 [facility] HEMATOLOGY [place] 0.3 min 11/19 [facility] HEMATOLOGY ACT (TEG) 97 s 86 - 118 11/19 [facility]2016 [facility] HEMATOLOGY R-time Rapid 0.5 min 0.4 - 0.7 11/[address] HEMATOLOGY Estimated % 0.0 % 0.0 - 7.5 11/19 [facility] Lysis [facility] BLOOD BANK Antibody Scrn Negative 11/19 [facility] RESULTS Medical (11/19/16 5:31 AM) Center BLOOD BANK ABO/Rh A POS 11/19 [facility] Angiogram Angiogram CEREBRAL ANGIOGRAM AND ENDOVASCULAR COIL EMBOLIZATION OF ANTERIOR COMMUNICATING ARTERY ANEURYSM AND LEFT MIDDLE CEREBRAL ARTERY ANEURYSM 11/19 - [facility] cervical /2016 - Medical artery artery This report was dictated by a Fisher Spear/ Fellow. I have personally reviewed the images as Center bilateral bilateral VR well as the Resident's interpretation and agree with the findings. VR CLINICAL INDICATION: Subarachnoid hemorrhage. 66-year-old male with Simpson Foster [address] angiogram demonstrated 2 aneurysms namely a ruptured inferiorly projecting anterior communic Read by: Hermilo Pozo MD Resident: Hermilo Pozo MD ating artery aneurysm and a left middle cerebral artery aneurysm. Patient brought to the IR suite for cerebral angiogram and possible endovascular treatment of aneurysms. Dictated Date/time: 11/22/16 07:11 Electronically Signed by: Eliceo Damon MD 11/29/16 09:08 FINAL REPORT PROCEDURE: 4-vessel cerebral angiogram. DURATION OF PROCEDURE: Approximately 2 hours. OPERATORS: Eliceo Damon MD, was the attending physician. He supervised the entire procedure. Hermilo Pozo MD, was the fellow. Both actively participated in catheter manipulation and were present in the room for the entire procedure. VESSELS ANGIOGRAMMED (in sequence): Right common carotid artery Right internal carotid artery Left common carotid artery Left internal carotid artery Left vertebral artery Right common femoral artery 3-D rotational angiogram, post-processed at a separate station: Left internal carotid artery injection 3-D rotational angiogram, post-processed at a separate station: Right internal carotid artery injection VESSELS TREATED (in sequence): Anterior communicating artery aneurysm treated through the right A1 segment via right internal carotid artery access. Left middle cerebral artery aneurysm treated through left internal carotid artery access Intra-arterial infusion of ReoPro into left middle cerebral artery ANESTHESIA: General. Pre-, intra-, and post-anesthesia monitoring records are available in the chart. MEDICATIONS: 0.5% Bupivacaine 10 cc SQ Heparin 33486 units IV Aspirin 325 mg PO Ancef 1 gram IV Intra-arterial ReoPro into left middle cerebral artery MATERIALS: 5 Mosotho micropuncture kit: Walton Mandril wire, 5 Mosotho transitional dilator, 21-gauge needle 0.038" Bentson guidewire 6 Mosotho Terumo [place] sheath 5 Mosotho 100 cm vertebral catheter 6-Mosotho benchmark guide catheter SL 10 and echelon 10 90 microcatheter Synchro 2 microguidewire Hyper form balloon 4 into 7 mm. Coils: Anterior communicating artery aneurysm: Target 360 soft 4 mm into 8 cm. Target 360 soft 3 mm into 6 cm. Target 3-D 3 mm into 6 cm. Target 360 ultra 2.5 mm into 4 cm. Left middle cerebral artery aneurysm: Targeted 360 soft 4 mm into 6 cm. Targeted 360 ultra 2 mm into 4 cm. Targeted 360 nano1.5 into 3 cm. Targeted 369 maribel 1 mm into 2 cm. Minx vascular closure device Omipaque 300 contrast material (250 cc) TECHNIQUE: Prior to the procedure, the technical aspects of the procedure, as well as potential risks and benefits, were explained to the patient's family (medical proxy). Specifically, the risks o f cerebral infarction, hemorrhage, aneurysm rupture, blindness, cranial nerve palsy, facial pain, anaphylaxis, renal failure, limb loss, , non- target embolization, groin hematoma, arterial dissecti on, arterial pseudoaneurysm, and arteriovenous fistula were discussed. After informed written consent was obtained, the patient was brought to the angiography suite, intubated, and prepped and draped in the usual fashion. Access to the vascular system was gained in the usu al way by a single-wall puncture of the right femoral artery; a 6 Mosotho sheath was introduced into the right femoral artery. Using fluoroscopic guidance , selective catheterization was done of the arter ies listed above. Digital angiograms were performed of these vessels, centered over the head. Ipsilateral and contralateral oblique projections were obtained of both internal carotid artery injections t o evaluate for anterior communicating artery or MCA bifurcation aneurysms. 3D ROTATIONAL ANGIOGRAPHY OF RIGHT INTERNAL CAROTID ARTERY, LEFT INTERNAL CAROTID ARTERY: Rotational angiography was also performed from the guiding catheter in the right and left internal carotid arter ies for better delineation of the intracranial vasculature. Three- dimensional angiographic images were processed on an independent workstation, and volume-rendered three-dimensional images were produced. Once a decision was made to proceed with coil embolization of the anterior communicating artery aneurysm and the left middle cerebral artery aneurysm and we proceeded with use of the guide catheter. A 6 -Mosotho benchmark guide catheter was advanced to the distal cervical right internal carotid artery followed by distal cervical left internal carotid artery for each of the embolizations respectively.. A working projection was obtained to best demonstrate the aneurysm neck. Superselective catheterization of the aneurysm was performed with the SL 10 microcatheter and Synchro 2 microguidewire. Framing a nd filling coils were placed using both roadmap and blank roadmap technique. A final control angiogram was performed following placement of the last coil to assess for residual aneurysm filling or for d istal emboli. Once excellent embolization of the anterior communicating artery aneurysm was obtained the place for attention to the left MCA aneurysm. A benchmark guide catheter was now placed in the le ft internal carotid artery. Initial attempts to catheterize the aneurysm using an SL 10 microcatheter failed. We therefore used an [employer] 1090 degrees preshaped microcatheter in combination with a TMATe r form balloon 4 into 7 mm. Once a stable position of the microcatheter was obtained in the left MCA aneurysm with proceeded with placement of the framing and filling coils with excellent result. There was some demonstrated thrombosis at the base of the aneurysm and extending into the early frontal branch associated with the aneurysm which was treated with intra-arterial ReoPro with good response. A roadmap of the right common femoral artery was obtained; the artery was deemed appropriate for use of the Angio-Seal vascular closure device. Ancef was administered. The sheath was removed and hemost asis obtained by application of the above device. Antibiotic ointment and a sterile Tegaderm were then applied over the puncture site. COMPARISON: CT angiogram head and neck 11/19/2016.. FINDINGS: RIGHT COMMON CAROTID ARTERY, CERVICAL: The bifurcation is smooth, without irregularity, calcification, or stenosis with respect to the distal SEBSATIAN. There is normal opacification of right ECA branches. RIGHT INTERNAL CAROTID ARTERY, CEREBRAL: The right internal carotid artery has a smooth course and caliber of the distal cervical, petrous, cavernous, ophthalmic and supraclinoid segments. There is good filling of the ophthalmic artery and the posterior communicating artery. There is normal filling of the right middle cerebral artery circulation. The right anterior cerebral artery demonstrates presenc e of an inferiorly projecting aneurysm closely associated with the right orbitofrontal artery. The aneurysm is present at the right A1 A2 junction with normal filling of the ipsilateral CHENTE circulation seen. The aneurysm measures 5 mm in its maximal dimension and has a 2.5 mm neck. The aneurysm was noted to have a well-defined neck and a small associated daughter sac. There is presence of flow across the anterior communicating artery. Rotational 3-D angiogram was also completed. LEFT COMMON CAROTID ARTERY, CERVICAL: The bifurcation is smooth, without irregularity, calcification, or stenosis with respect to the distal LICA. There is normal opacification of left ECA branches. LEFT INTERNAL CAROTID ARTERY, CEREBRAL: The left internal carotid artery is a smooth course of its distal cervical, petrous, cavernous and supraclinoid segment. There is good filling of the ophthalmic a rtery and posterior choana getting artery. The left internal carotid artery terminus is within normal limits. The left A1 segment fills normally and fills bilateral CHENTE circulation. There is filling of the right A1 A2 junction aneurysm seen again as described above. The left middle cerebral artery M1 segment demonstrates a prominent early frontal branch with an associated superiorly projecting aneurys m. The left MCA true bifurcation appears normal with no abnormalities and good filling of the distal left MCA circulation is seen. The left M1 aneurysm measures 5.12 into 3.21 mm into 2.48 mm. The aneur ysm has a small daughter sac associated with it. An early frontal branch originates from the base of the aneurysm and gives rise to frontopolar branch. A 3-D angiogram was completed to allow working pro jections. The right frontal external ventricular drain is seen to cross the midline and is closely associated with the pericallosal branches with no evidence of occlusion, pseudoaneurysm or dissection. The EVD does compress the callosomarginal branch (best seen on reconstructed 3D images and series 4b). Attention towards this finding is recommended on subsequent angiogram. LEFT VERTEBRAL ARTERY, CEREBRAL: The left vertebral artery has a normal V3 and V4 segments with filling of left PICA. There is cross filling of right vertebral artery with a normal-appearing right PICA. Basilar arteries smooth in course and caliber and there is symmetric filling of both anterior inferior cerebellar arteries, superior cerebellar arteries and posterior cerebral arteries. There is no ane urysm, stenosis, or early draining vein. No other abnormalities noted. Post-coiling surveillance angiogram demonstrates complete obliteration of the anterior communicating artery aneurysm as well as the left M1 aneurysm with no residual filling of the previously noted aneu rysms. There is some thrombus noted at the base of the left M1 aneurysm coil mass extending into the early frontal branch. Subsequent angiograms completed at 10 minute intervals following administration of ReoPro into the left middle cerebral artery M1 segment demonstrated resolution of the thrombus and complete patency of the vessels. No distal emboli noted. RIGHT COMMON FEMORAL ARTERY: No abnormalities are detected. This artery is appropriate for use of the Angio-Seal vascular closure device. COMPLICATIONS: None immediate. 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 Patient brought to the IR suite for ce rebral angiogram and endovascular treatment following placement of a right frontal external ventricular drain 1. There is evidence of an anteriorly and inferiorly projecting anterior communicating artery aneurysm measuring 5 mm in its maximal diameter with a 2.5 mm neck. Aneurysm is present at the right A1 A2 j unction closely associated with the right orbitofrontal branch. The aneurysm was successfully treated with coil embolization with complete obliteration and no significant residual. 2. There is evidence of a superiorly projecting left MCA M1 segment early frontal branch aneurysm measuring 5.1 mm in its maximal diameter and a 2.4 mm neck. The aneurysm was treated with balloon assist ed coil embolization. The aneurysm was found to be completely obliterated, however thrombus noted at the aneurysm base extending into the left M1 segment and the early frontal branch which largely resolved with intra-arterial ReoPro administration. 3. DynaCT at the conclusion of the procedure demonstrated no evidence of new hemorrhage. As such the patient was started on aspirin after the procedure was complete. 4. Anterior and medial placement of extra-ventricular drain. The drain is noted to compress the right CHENTE callosomarginal branch (see Series 4b) without significant flow limitation. 5. Angio-Seal vascular closure device used for groin hemostasis. Brain/Neck Brain/Neck EXAM: CT ANGIOGRAM OF THE BRAIN 11/19 - [facility] CTA CTA /2016 - Medical EXAM: CT ANGIOGRAM OF THE NECK Center Read by: Rei Spencer MD Dictated Date/time: 11/19/16 16:52 DATE: 11/19/2016 6:58 AM ROOFER Electronically Signed by: Rei Spencer MD 11/19/16 17:21 FINAL REPORT INDICATION: Bleeding COMPARISON: Outside head CT TECHNIQUE: -Rapid acquisition spiral images of the brain and neck were obtained between the aortic arch and the cranial vertex during intravenous infusion of iodinated contrast for the purposes of CT angiography. 3-D CT angiographic images are created using maximum intensity projection technique at the acquisition workstation. The source images are also presented for interpretation. IV contrast: 60 mL Visipaque 320 A note from the technologist indicates that the patient was premedicated with Benadryl prior to administration of contrast and tolerated the procedure without ill effects. DOSE: Total DLP 913 mGy*cm FINDINGS: NECK CTA: Aortic arch: The great vessels originate from the aortic arch in the standard configuration. No origin stenosis is identified. The vertebral artery origins are patent bilaterally. Carotid arteries: The cervical common carotid arteries and cervical internal carotid arteries have a normal course, caliber, and contour. There are areas of calcification at the carotid bifurcations. N o stenosis of the carotid bifurcations or internal carotid arteries is present by NASCET criteria. There is no evidence of vascular injury. Vertebral arteries:The vertebral arteries are co-dominant. The vertebral arteries have a normal course, caliber and contour. The soft tissues of the neck and other incidental structures are normal. BRAIN CTA: A focal eccentric contrast collection is identified projecting anteriorly and superiorly from the junction of the A2 segment and anterior communicating arteries. The aneurysm has a broad base with respe ct to the parent vessel forming much of the medial wall of the A2 segment. The base measures 3.4 mm. Aneurysm diameter more laterally is 3.8 mm and the base to apex diameter is 3.5 mm (series 5 image 66). An accessory anterior cerebral artery originates from a large anterior communicating artery. The A1 and A2 segments on the left are normal as is the remainder of the left anterior circulation. No additi onal aneurysm is detected in the anterior or posterior circulations. A second focus of eccentric contrast is identified on the left involving the middle cerebral artery. An early origin of a single opercular branch is present from the upper aspect of the M1 segment. At t he base of this branch there is a focal outpouching of contrast projecting superolaterally. The neck of this aneurysm measures approximately 2.6 mm with a base to apex diameter of just over 3 mm and it transverse diameter of the aneurysm of approximately 3.7 mm. The posterior circulation has a normal appearance and a standard branching pattern. No branch occlusion, vascular injury, arteritis, vascular malformation or aneurysm is identified. The deep cerebral veins and major venous sinuses are normal. The brain parenchyma and other incidental structures are changed. Again noted is hemorrhage in the quadrigeminal cistern and other basal cisterns. IMPRESSION: 1. Small A2 region aneurysm on the left at its junction with the anterior communicating artery. This aneurysm has a focal tit projecting anteriorly indicating it is the most likely source of the patient's subarachnoid hemorrhage. 2. Left MCA aneurysm at the base of an early opercular branch. 3. No findings of vasospasm. (All qualitative and quantitative assessments of carotid bifurcation and proximal internal carotid artery stenosis are made referencing the distal internal carotid artery {NASCET criteria}.) Resident PRELIMINARY REPORT: Creator: Benjy Norwood I Date: Nov 19, 2016 07:16:07 Subject: 4mm R Acomm aneurysm ( Img 66 Se 5) Blood products around basilar cistern. Vital Signs Vital Sign Value Date Comments Source Heart Rate 73 12/09/2016 [facility] Respitory Rate 18 12/09/2016 [facility] Temperature Oral (F) 97.7 F 12/09/2016 [facility] Systolic (mm Hg) 136 12/09/2016 [facility] Diastolic (mm Hg) 75 12/09/2016 [facility] Temperature Oral (F) 98.3 F 12/09/2016 [facility] Respitory Rate 18 12/09/2016 [facility] Heart Rate 70 12/09/2016 [facility] Systolic (mm Hg) 161 12/09/2016 [facility] Diastolic (mm Hg) 85 12/09/2016 [facility] Systolic (mm Hg) 166 12/09/2016 [facility] Diastolic (mm Hg) 74 12/09/2016 [facility] Heart Rate 68 12/09/2016 [facility] Temperature Oral (F) 97.7 F 12/09/2016 [facility] Respitory Rate 18 12/09/2016 [facility] Height 182.88 cm 12/03/2016 [facility] Height 182.88 cm 12/03/2016 [facility] Height 182.88 cm 12/03/2016 [facility] BMI Calculated 34.79 11/19/2016 [facility] Weight 116.364 11/19/2016 [facility] Encounters Location Location Encounter Encounter Reason Attending ADM DC Status Source Details Type Number For Provider Date Date Visit [facility] [id number] Pin Larios 11/19 12/09 [facility] /2016 [facility] Procedures Procedure Code Date Perfomer Comments [place] [address] 11/30/2016 [facility] intracranial Medical vasospasm, Center percutaneous; each additional vessel in same vascular family (List separately in addition to code for primary procedure) [place] [address] 11/30/2016 [facility] intracranial Medical vasospasm, Center percutaneous; initial vessel Selective catheter 30010 11/29/2016 [facility] placement, vertebral Medical artery, unilateral, Center with angiography of the ipsilateral vertebral circulation and all associated radiological supervision and interpretation, includes angiography of the cervicocerebral arch, [place] [address] 11/29/2016 [facility] intracranial Medical vasospasm, Center percutaneous; initial vessel Selective catheter 68166 11/26/2016 [facility] placement, vertebral Medical artery, unilateral, Center with angiography of the ipsilateral vertebral circulation and all associated radiological supervision and interpretation, includes angiography of the cervicocerebral arch, when performed Selective catheter 54357 11/19/2016 [facility] placement, vertebral Medical artery, unilateral, Center with angiography of the ipsilateral vertebral circulation and all associated radiological supervision and interpretation, includes angiography of the cervicocerebral arch, when performed Selective catheter 29736 11/19/2016 [facility] placement, internal Medical carotid artery, Center unilateral, with angiography of the ipsilateral intracranial carotid circulation and all associated radiological supervision and interpretation, includes angiography of the extracranial carotid and ce Selective catheter 67578 11/19/2016 [facility] placement, common Medical carotid or innominate Center artery, unilateral, any approach, with angiography of the ipsilateral intracranial carotid circulation and all associated radiological supervision and interpretation, includes angiography of the e Appendicectomy [id number] [facility] Arthroscopy of knee [id number] [facility] Shoulder repair [id number] [facility]
--- OUTSIDE RECORDS SUMMARY | 2018-09-11 13:12 | XMS REPORT ---
:1950 Author Organization [employer] Care Team Providers Name Role Phone CondonRyleeh Provider Role Unavailable Allergies No Known Allergies Problems Problem Type Condition Code Onset Dates Condition Status Problem Hyperlipidemia, mixed E78.2 Active Problem Iron deficiency anemia D50.9 Active Problem Gastro-esophageal reflux disease K21.9 Active without esophagitis Problem Elevated prostate specific antigen R97.20 Active (PSA) Problem Hyperlipidemia E78.5 Active Problem Seasonal allergic rhinitis due to J30.1 Active pollen Problem Diabetes type 2, uncontrolled E11.65 Active Problem Dementia F03.90 Active Problem Allergic rhinitis J30.9 Active Problem Benign essential HTN I10 Active Assessment Elevated prostate specific antigen R97.20 Active (PSA) Problem Gastrointestinal hemorrhage, K92.2 Active unspecified Problem Nontraumatic subarachnoid I60.9 Active hemorrhage, unspecified Medications Medication Code Code Instructions Start End Status Dosage System Date Date NovoFine [facility] [id number] 32G X 6 MM Jul 19, Active use with subcutaneously 2018 injection once daily pen Results No Known Results Summary Purpose [employer] Submission
--- OUTSIDE RECORDS SUMMARY | 2018-09-11 13:12 | XMS REPORT ---
:1950 Author Organization eClinicalWorks Care Team Providers Name Role Phone Rylee Condonh Provider Role Unavailable Allergies, Adverse Reactions, Alerts Substance Reaction Event Type Mefoxin Info Not Available Drug Allergy Iodine Info Not Available Drug Allergy Problems Problem Type Condition Code Onset Dates [...] Problem Benign essential HTN I10 Active Assessment Iron deficiency anemia D50.9 Active Assessment Elevated prostate specific antigen R97.20 Active (PSA) Assessment Hyperlipidemia E78.5 Active Assessment Diabetes type 2, uncontrolled E11.65 Active Assessment Allergic rhinitis J30.9 Active Problem Gastrointestinal hemorrhage, K92.2 Active unspecified Assessment Benign essential HTN I10 Active Problem Nontraumatic subarachnoid I60.9 Active hemorrhage, unspecified Medications Medication Code Code Instructions Start End Status Dosage System Date Date [facility] 34984449081 81 MG Orally Active 1 tablet Once a day Glucophage [facility] 36200752824 1000 MG Orally Active 1 tablet Twice a day with meals Hydrochlorothiazide [facility] 75920638178 25 MG Orally Active 1 tablet Once a day in the morning Norvasc [facility] 92636728404 5 MG Orally Active 1 tablet Once a day Galantamine [facility] 26310678502 4 MG Orally Active 1 tablet Hydrobromide Twice a day with meals GlipiZIDE [facility] 67225424431 5 MG Orally Active 1 tablet Twice a day Singulair [facility] 46769423051 10 MG Orally Active 1 tablet Once a day in the evening Tresiba FlexTouch [facility] 43213920360 200 UNIT/ML Active Inject Subcutaneous 20 units QD SQ QD Lotensin [facility] 52150954399 40 MG Orally Active 1 tablet Once a day Crestor [facility] 61776607317 5 MG Orally Active 1 tablet Once a day Humulin 70/30 [facility] 64505929206 70/30 Inactive INJECT 35 UNITS UNDER THE SKIN THREE TIMES A DAY Results No Known Results Summary Purpose eClinicalWorks Submission
[2018-09-11] MEDS ORDERED: CYCLOBENZAPRINE 10 MG TAB ONE (14:48)
[2018-09-11] MEDS ORDERED: DEXAMETHASONE 10 MG/ML VIAL ONE (14:48)
[2018-09-11] MEDS ORDERED: HYDROCODONE/APAP 10/325 TAB ONE (14:49)
--- NOTE | 2018-09-11 15:13 | EDPHYS ---
Physician Documentation [facility] Name: En Rushing Jr Age: 68 yrs Sex: Male : 1950 Arrival Date: 09/11/2018 Time: 13:07 Bed 30 Private MD: Rambo Condon ED Physician Evin Rodriguez HPI: 09/11 14:34 This 68 yrs old Male presents to ER via Ambulatory with complaints of Neck rn Pain, >24Hrs Old. 14:34 The patient or guardian complains of pain. The symptoms are located on the left rn neck/SCM. Onset: The symptoms/episode began/occurred 3 day(s) ago. Associated signs and symptoms: Pertinent positives: This patient does not have any pertinent positive signs or symptoms associated with neck pain. Pertinent negatives: fever, headache, bladder incontinence, bowel incontinence, nausea, numbness, tingling, vomiting, weakness. The pain does not radiate. Modifying factors: The symptoms are alleviated by heat, remaining still, the symptoms are aggravated by movement, pressure. Severity of symptoms: At their worst the symptoms were moderate, in the emergency department the symptoms are unchanged. The patient has not experienced similar symptoms in the past. Reports left neck pain, began shortly after sleeping in recliner, no other trauma, no focal neurological complaint. . Historical: - Allergies: 13:36 Iodine; hj 13:36 Mefoxin; hj 13:36 Proton Pump Inhibitors; hj - PMHx: 13:36 Diabetes - IDDM; Hypertension; hj - PSHx: 13:36 aneurysm; Knee surgery; Appendectomy; hj - Immunization history:: Adult Immunizations up to date. - Social history:: Smoking status: Patient/guardian denies using tobacco, Patient/guardian denies using alcohol. - Ebola Screening: : Patient negative for fever greater than or equal to 101.5 degrees Fahrenheit, and additional compatible Ebola Virus Disease symptoms Patient denies exposure to infectious person Patient denies travel to an Ebola-affected area in the 21 days before illness onset. - Family history:: not pertinent. - Hospitalizations: : No recent hospitalization is reported. ROS: 15:00 Constitutional: Negative for fever, chills, and weight loss, Eyes: Negative for injury, rn pain, redness, and discharge, Neck: + left neck pain Cardiovascular: Negative for chest pain, palpitations, and edema, Respiratory: Negative for shortness of breath, cough, wheezing, and pleuritic chest pain, Abdomen/GI: Negative for abdominal pain, nausea, vomiting, diarrhea, and constipation, MS/Extremity: Negative for injury and deformity, Skin: Negative for injury, rash, and discoloration, Neuro: Negative for headache, weakness, numbness, tingling, and seizure. Exam: 15:00 Constitutional: This is a well developed, well nourished patient who is awake, alert, rn and in no acute distress. Head/Face: Normocephalic, atraumatic. Eyes: Pupils equal round and reactive to light Neck: Trachea midline, no thyromegaly or masses palpated, and no cervical lymphadenopathy. No Meningismus. + left SCM tenderness and pain with ROM. Skin: Warm, dry with normal turgor. Normal color with no rashes, no lesions, and no evidence of cellulitis. MS/ Extremity: Pulses equal, no cyanosis. Neurovascular intact. Full, normal range of motion. Equal circumference. Neuro: Awake and alert, GCS 15, oriented to person, place, time, and situation. Cranial nerves II-XII grossly intact. Motor strength 5/5 in all extremities. Sensory grossly intact. Cerebellar exam normal. Normal gait. Vital Signs: 13:37 BP 160 / 73; Pulse 79; Resp 18; Temp 97.6(TE); Pulse Ox 100% on R/A; Weight 127.01 kg; hj Height 6 ft. 0 in. (182.88 cm); Pain 3/10; 15:00 BP 148 / 72; Pulse 75; Resp 17; Pulse Ox 99% ; kr2 13:37 Body Mass Index 37.98 (127.01 kg, 182.88 cm) MDM: 14:05 Patient medically screened. rn 15:11 Differential diagnosis: Cervical Discogenic Pain cervical strain, torticollis. Data rn reviewed: vital signs, nurses notes, and as a result, I will discharge patient. Counseling: I had a detailed discussion with the patient and/or guardian regarding: the historical points, exam findings, and any diagnostic results supporting the discharge/admit diagnosis, the need for outpatient follow up, to return to the emergency department if symptoms worsen or persist or if there are any questions or concerns that arise at home. Response to treatment: the patient's symptoms have mildly improved after treatment, and as a result, I will discharge patient. Special discussion: I discussed with the patient/guardian in detail that at this point there is no indication for admission to the hospital. It is understood, however, that if the symptoms persist or worsen the patient needs to return immediately for re-evaluation. Administered Medications: 14:40 Drug: Decadron 10 mg Route: IM; Site: right gluteus; kr2 15:15 Follow up: Response: No adverse reaction; Pain is decreased kr2 14:44 Drug: Flexeril 10 mg Route: PO; kr2 15:15 Follow up: Response: No adverse reaction kr2 14:44 Drug: Tripp 10 mg-325 mg 1 tabs Route: PO; kr2 15:15 Follow up: Response: No adverse reaction kr2 Disposition: 09/11/18 15:13 Discharged to Home. Impression: Torticollis, Muscle spasm. - Condition is Stable. - Discharge Instructions: Acute Torticollis, Adult, Neck Exercises. - Prescriptions for Tylenol- Codeine #3 300-30 mg Oral Tablet - take 1 tablet by ORAL route every 6 hours As needed; 15 tablet. Cyclobenzaprine 10 mg Oral Tablet - take 1 tablet by ORAL route every 8 hours As needed; 15 tablet. Medrol (Ramu) 4 mg Oral Tablets, Dose Pack - take 1 tablet by ORAL route as directed - follow package instructions; 1 packet. - Medication Reconciliation Form, Thank You Letter, Antibiotic Education, Prescription Opioid Use form. - Follow up: Private Physician; When: As needed; Reason: Recheck today's complaints, Re-evaluation by your physician. - Problem is new. - Symptoms have improved. Signatures: Evin Rodriguez MD MD rn Joaquin, Henry, RN RN hj Reaves, Karey, RN RN kr2 Corrections: (The following items were deleted from the chart) 15:17 15:13 09/11/2018 15:13 Discharged to Home. Impression: Torticollis; Muscle spasm. kr2 Condition is Stable. Forms are Medication Reconciliation Form, Thank You Letter, Antibiotic Education, Prescription Opioid Use. Follow up: Private Physician; When: As needed; Reason: Recheck today's complaints, Re-evaluation by your physician. Problem is new. Symptoms have improved. rn
--- NOTE | 2018-09-11 15:13 | ER ---
Nurse's Notes [facility] Name: En Rushing Jr Age: 68 yrs Sex: Male : 1950 Arrival Date: 09/11/2018 Time: 13:07 Bed 30 Private MD: Rambo Condon Diagnosis: Torticollis;Muscle spasm Presentation: 09/11 13:34 Presenting complaint: Patient states: Tuesday or Tuesday i fell asleep on the recliner hj and i think my neck went way or another and started having pain on the L side on the neck; denies numbness or tingling on the L side; pain is 3/10;. Transition of care: patient was not received from another setting of care. Acute neurological deficit: none identified. Onset of symptoms was September 11, 2018. Risk Assessment: Do you want to hurt yourself or someone else? Patient reports no desire to harm self or others. Initial Sepsis Screen: Does the patient meet any 2 criteria? Yes Does the patient have a suspected source of infection? No. Patient's initial sepsis screen is negative. Care prior to arrival: None. 13:34 Method Of Arrival: Ambulatory 13:34 Acuity: ETELVINA 4 hj Triage Assessment: 13:36 General: Appears in no apparent distress. uncomfortable, Behavior is calm, cooperative, hj appropriate for age. Pain: Complains of pain in neck. Historical: - Allergies: 13:36 Iodine; hj 13:36 Mefoxin; hj 13:36 Proton Pump Inhibitors; hj - PMHx: 13:36 Diabetes - IDDM; Hypertension; hj - PSHx: 13:36 aneurysm; Knee surgery; Appendectomy; hj - Immunization history:: Adult Immunizations up to date. - Social history:: Smoking status: Patient/guardian denies using tobacco, Patient/guardian denies using alcohol. - Ebola Screening: : Patient negative for fever greater than or equal to 101.5 degrees Fahrenheit, and additional compatible Ebola Virus Disease symptoms Patient denies exposure to infectious person Patient denies travel to an Ebola-affected area in the 21 days before illness onset. - Family history:: not pertinent. - Hospitalizations: : No recent hospitalization is reported. Screenin:37 Abuse screen: Denies threats or abuse. Denies injuries from another. Nutritional hj screening: No deficits noted. Tuberculosis screening: No symptoms or risk factors identified. Fall Risk None identified. Assessment: 13:37 Neuro: Level of Consciousness is awake, alert, obeys commands, Oriented to person, hj place, time, situation, Appropriate for age. 13:45 General: Appears in no apparent distress. uncomfortable, well groomed, well developed, kr2 well nourished, Behavior is calm, cooperative, appropriate for age. Pain: Complains of pain in neck Pain does not radiate. Pain currently is 3 out of 10 on a pain scale. Quality of pain is described as aching, tender, Is continuous. Neuro: Level of Consciousness is awake, alert, obeys commands, Oriented to person, place, time, situation, Appropriate for age Skate Shop Attendant are equal bilaterally Moves all extremities. Gait is steady, Speech is normal, Facial symmetry appears normal, Pupils are PERRLA, Intact. Cardiovascular: Capillary refill < 3 seconds in bilateral fingers Patient's skin is warm and dry. Respiratory: Airway is patent Respiratory effort is even, unlabored, Respiratory pattern is regular, symmetrical. GI:. Derm: Skin is intact, is healthy with good turgor, Skin is pink, warm \T\ dry. Musculoskeletal: Circulation, motion, and sensation intact. Range of motion: limited in neck. 15:00 Reassessment: Patient appears in no apparent distress at this time. Patient and/or kr2 family updated on plan of care and expected duration. Pain level reassessed. Patient is alert, oriented x 3, equal unlabored respirations, skin warm/dry/pink. Patient states feeling better. Vital Signs: 13:37 BP 160 / 73; Pulse 79; Resp 18; Temp 97.6(TE); Pulse Ox 100% on R/A; Weight 127.01 kg; hj Height 6 ft. 0 in. (182.88 cm); Pain 3/10; 15:00 BP 148 / 72; Pulse 75; Resp 17; Pulse Ox 99% ; kr2 13:37 Body Mass Index 37.98 (127.01 kg, 182.88 cm) ED Course: 13:07 Patient arrived in ED. sb2 13:07 Rambo Condon DO is Private Physician. sb2 13:35 Triage completed. hj 13:37 Arm band placed on left wrist. hj 13:37 Patient has correct armband on for positive identification. Bed in low position. Call light in reach. Side rails up X 1. Adult w/ patient. 13:48 Linette Christiansen, RN is Primary Nurse. kr2 14:05 Evin Rodriguez MD is Attending Physician. rn 15:15 No provider procedures requiring assistance completed. Patient did not have IV access kr2 during this emergency room visit. Administered Medications: 14:40 Drug: Decadron 10 mg Route: IM; Site: right gluteus; kr2 15:15 Follow up: Response: No adverse reaction; Pain is decreased kr2 14:44 Drug: Flexeril 10 mg Route: PO; kr2 15:15 Follow up: Response: No adverse reaction kr2 14:44 Drug: [place] 10 mg-325 mg 1 tabs Route: PO; kr2 15:15 Follow up: Response: No adverse reaction kr2 Outcome: 15:13 Discharge ordered by MD. rn 15:15 Discharged to home ambulatory, with family. kr2 15:15 Condition: good 15:15 Discharge instructions given to patient, family, Instructed on discharge instructions, follow up and referral plans. medication usage, Demonstrated understanding of instructions, follow-up care, medications, Prescriptions given X 3. 15:17 Patient left the ED. kr2 Signatures: Evin Rodriguez MD MD rn Joaquin, Henry, RN RN hj Reaves, Karey, RN RN kr2 Aixa Guerrero sb2 Corrections: (The following items were deleted from the chart) 13:40 13:37 Pulse 79bpm; Resp 18bpm; Pulse Ox 100% RA; Temp 97.6F Temporal; 127.01 kg; Height hj 6 ft. 0 in.; BMI: 37.9; Pain 3/10; hj 16:23 13:45 Pain: Complains of pain in neck Pain does not radiate. Pain currently is 5 out of kr2 10 on a pain scale. Quality of pain is described as aching, tender, Is continuous, kr2
[2018-09-11 15:51] VITALS: BP 160/73; TEMP 97.6; O2SAT 100
== END 2018-09-11 15:17 | disposition home or self-care (01) ==
LOC: ER 13:04
DX: R25.2 Cramp and spasm (principal); I10 Essential (primary) hypertension; Z88.8 Allergy status to other drugs, medicaments and biological substances; Z91.048 Other nonmedicinal substance allergy status
CPT/HCPCS: 96372; 99283; J1100

== ENCOUNTER 2023-11-16 17:42 | Inpatient (IN) | payer OTHER ==
[2023-11-16 18:10] LABS: Hematocrit 36.6 % (39.6-49.0); Lymphocytes % 20.3 % (15.3-44.8); MCV 89.9 fL (80-100); MPV 11.2 fL (7.6-11.3); Platelets 194 thou/uL (152-406); RBC Red Blood Cell Count 4.07 M/uL (4.33-5.43)
[2023-11-16 18:14] LABS: Protime INR 0.95
--- NOTE | 2023-11-16 18:41 | RAD REPORT ---
EXAM DESCRIPTION: RAD - Chest Single View - 11/16/2023 6:33 pm CLINICAL HISTORY: CHEST PAIN Chest pain. COMPARISON: Chest Single View dated 12/18/2016; Chest Single View dated 11/19/2016; CHEST PA AND LAT 2 VIEW dated 02/20/2014; CHEST SINGLE VIEW dated 07/23/2013 FINDINGS: Portable technique limits examination quality. The lungs are grossly clear. The heart is normal in size. No displaced fractures. IMPRESSION: No acute intrathoracic process suspected.
[2023-11-16 18:58] LABS: ALT/SGPT 19 U/L (16-61); AST/SGOT 11 U/L (15-37); Alkaline Phosphatase 70 U/L (45-117); BUN Blood Urea Nitrogen 19 mg/dL (7-18); Bicarbonate 24 mEq/L (21-32); Bilirubin Total 0.4 mg/dL (0.2-1.0); Glomerular Filtration Rate 55 ml/min (=/>90); Magnesium 1.7 mg/dL (1.6-2.4); Potassium 4.5 mEq/L (3.5-5.1); Protein, Total 5.9 g/dL (6.4-8.2); Sodium Level 131 mEq/L (136-145); Troponin High Sensitivity 125.8 pg/mL (<58.9)
[2023-11-16 19:02] LABS: Bilirubin Direct < 0.1 mg/dL (0-0.2); Bilirubin Indirect, Calculated ND mg/dL (0.2-0.8)
[2023-11-16 19:04] LABS: Glucose Level 705 mg/dL (74-106)
[2023-11-16] MEDS ORDERED: NA CHLORIDE 0.9% 1,000 ML ONE (19:08)
[2023-11-16] MEDS ORDERED: INSULIN REGULAR (HUMAN) 100 UNIT/ML ONE (19:08)
--- NOTE | 2023-11-16 19:12 | RAD REPORT ---
EXAM DESCRIPTION: CT - Head Brain Wo Cont - 11/16/2023 7:05 pm CLINICAL HISTORY: SEIZURE Headache drowsiness seizure COMPARISON: Sinus Wo Cont dated 06/30/2017; Head Brain Wo Cont dated 12/21/2016 TECHNIQUE: All CT scans are performed using dose optimization technique as appropriate and may inclu de automated exposure control or mA/KV adjustment according to patient size. FINDINGS: No intracranial hemorrhage, hydrocephalus or extra-axial fluid collection.Aneurysm clips a re noted in the region of the [place]. Moderate gliosis is seen in the frontal region, greater on the right.No midline shift. The paranasal sinuses and mastoids are clear. The calvarium is intact. IMPRESSION: No acute intracranial abnormality.
--- NOTE | 2023-11-16 19:25 | EDPHYS ---
Physician Documentation [facility] Name: En Rushing Jr Age: 73 yrs Sex: Male : 1950 Arrival Date: 11/16/2023 Time: 17:42 Bed 8 Private MD: ED Physician Mark Causey HPI: 11/16 20:00 This 73 yrs old Male presents to ER via EMS with complaints of seizure. kb 20:00 Patient is a 73-year-old male who presents for convulsions on the left side of his body kb whenever he turns his head to the left while driving. States he pulled over until the convulsions passed and was awake for the entire event. EMS reports patient was ANO x 4 whenever they arrived on scene. Reports elevated blood pressure and blood sugar. No witnessed seizure activity in route.. Historical: - Allergies: 17:45 Mefoxin; mb9 17:45 Iodine; mb9 17:45 Proton Pump Inhibitors; mb9 - PMHx: 17:45 Diabetes - IDDM; Hypertension; Aneurysm; mb9 - PSHx: 17:45 Appendectomy; mb9 - Immunization history:: Adult Immunizations up to date. - Social history:: Smoking status: Patient denies any tobacco usage or history of. ROS: 20:00 Constitutional: Negative for fever, chills, and weight loss, kb 20:00 Neuro: Positive for " Convulsions", 20:00 All other systems are negative, Exam: 20:00 Constitutional: This is a well developed, well nourished patient who is awake, alert, kb and in no acute distress. Head/Face: Normocephalic, atraumatic. ENT: Moist Mucous membranes Cardiovascular: Regular rate Respiratory: Respirations even and unlabored. No increased work of breathing. Talking in full sentences Abdomen/GI: Soft, non-tender. No distention Skin: Warm, dry with normal turgor. Normal color. MS/ Extremity: Pulses equal, no cyanosis. Neurovascular intact. Full, normal range of motion. Neuro: Awake and alert, GCS 15, oriented to person, place, time, and situation. Moves all extremities. Normal gait. Vital Signs: 17:43 BP 160 / 96; Pulse 84; Resp 18; Temp 98; Pulse Ox 97% on R/A; Weight 91.63 kg; Height 6 mb9 ft. 0 in. ; Pain 0/10; 18:16 BP 160 / 97; Pulse 87; Resp 17; Pulse Ox 99% on R/A; rs5 18:48 BP 177 / 77; Pulse 81; Resp 17; Pulse Ox 99% on R/A; rs5 19:30 BP 174 / 85; Pulse 85; Resp 18; Temp 97.7; Pulse Ox 96% on R/A; as9 21:26 BP 159 / 70; Pulse 80; Resp 19; Temp 98; Pulse Ox 99% on R/A; rv2 17:43 Body Mass Index 27.40 (91.63 kg, 182.88 cm) mb9 17:43 Pain Scale: Adult mb9 MDM: 17:43 Patient medically screened. kb 20:02 Differential diagnosis: cardiac arrhythmia, seizure. Data reviewed: vital signs, nurses kb notes. Consideration of Admission/Observation Patient was admitted/placed on observation. Escalation of care including admission/observation considered. Management of patient was discussed with the following: Hospitalist: Dr. Neves accepts patient for admission. Historians other than the Patient: EMS: [facility]. Counseling: I had a detailed discussion with the patient and/or guardian regarding the historical points, exam findings, and any diagnostic results supporting the discharge/admit diagnosis, lab results, radiology results, the need for further work-up and treatment in the hospital. 11/16 17:44 Order name: Basic Metabolic Panel; Complete Time: 19:06 kb 11/16 17:44 Order name: CBC with Diff; Complete Time: 18:12 kb 11/16 17:44 Order name: Hepatic Function; Complete Time: 19:06 kb 11/16 17:44 Order name: Magnesium; Complete Time: 19:06 kb 11/16 17:44 Order name: Protime (+inr); Complete Time: 18:17 kb 11/16 17:44 Order name: Ptt, Activated; Complete Time: 18:17 kb 11/16 17:44 Order name: Troponin High Sensitivity; Complete Time: 19:06 kb 11/16 20:39 Order name: Glucose, Ancillary Testing; Complete Time: 20:42 EDMS 11/16 20:41 Order name: Basic Metabolic Panel EDMS 11/16 20:41 Order name: Basic Metabolic Panel EDMS 11/16 20:41 Order name: Troponin High Sensitivity EDMS 11/16 20:41 Order name: Troponin High Sensitivity; Complete Time: 06:21 EDMS 11/16 20:41 Order name: Troponin High Sensitivity; Complete Time: 06:21 EDMS 11/16 20:41 Order name: Troponin High Sensitivity EDMS 11/16 17:44 Order name: CT Head Brain wo Cont; Complete Time: 19:15 kb 11/16 17:44 Order name: Chest Single View XRAY; Complete Time: 18:45 kb 11/16 17:44 Order name: EKG; Complete Time: 17:45 kb 11/16 17:44 Order name: Cardiac monitoring; Complete Time: 17:47 kb 11/16 17:44 Order name: EKG - Nurse/Tech; Complete Time: 17:54 kb 11/16 17:44 Order name: IV Saline Lock; Complete Time: 17:47 kb 11/16 17:44 Order name: Labs collected and sent; Complete Time: 17:54 kb 11/16 17:44 Order name: NPO; Complete Time: 17:47 kb 11/16 17:44 Order name: O2 Per Protocol; Complete Time: 17:47 kb 11/16 17:44 Order name: O2 Sat Monitoring; Complete Time: 17:47 kb Administered Medications: 19:13 Drug: NS 0.9% IV 1000 ml IV at 1000 ml once Route: IV; Rate: 1000 ml; Site: right mb9 antecubital; 19:13 Drug: Insulin Regular Human IVP 10 units IVP once {Co-Signature: as9 (Misael Hernandez9 RN).} Route: IVP; Site: right antecubital; Disposition: 11/17 19:58 Co-signature as Attending Physician, Mark Causey MD I reviewed the patient's care rt provided by the Advanced Practice Provider and agree with the diagnosis and treatment plan. Disposition Summary: 11/16/23 19:25 Hospitalization Ordered Notes: Hospitalization Status: Observation kb Provider: Parag Neves Location: Telemetry/MedSurg (observation) kb Condition: Stable kb Problem: new kb Symptoms: are unchanged kb Bed/Room Type: Standard kb Room Assignment: 210(11/16/23 20:46) as6 Diagnosis - Hyperglycemia, unspecified kb - Elevated troponin kb Forms: - Medication Reconciliation Form kb - SBAR form kb - Leadership Thank You Letter kb Signatures: Dispatcher [employer] Jenn Cali, NIKKI-C MAGENTO DEVELOPER-Ckb Noe Tai FNP-C FNP-Cla1 Huy Stoner RN RN as6 Carmela Tejeda RN RN mb9 Mark Causey MD MD rt Misael Hernandez RN as9 Corrections: (The following items were deleted from the chart) 11/16 20:46 19:25 kb as6
--- NOTE | 2023-11-16 19:25 | ER ---
Nurse's Notes [facility] Name: En Rushing Jr Age: 73 yrs Sex: Male : 1950 Arrival Date: 11/16/2023 Time: 17:42 Bed 8 Private MD: Diagnosis: Hyperglycemia, unspecified;Elevated troponin Presentation: 11/16 17:43 Chief complaint: EMS states: "toned out for whole body locking up while driving. 18 g mb9 right AC.". Coronavirus screen: Vaccine status: Patient reports receiving the 2nd dose of the covid vaccine. Ebola Screen: No symptoms or risks identified at this time. Initial Sepsis Screen: Does the patient meet any 2 criteria? No. Patient's initial sepsis screen is negative. Does the patient have a suspected source of infection? No. Patient's initial sepsis screen is negative. Risk Assessment: Do you want to hurt yourself or someone else? Patient reports no desire to harm self or others. Onset of symptoms was November 16, 2023. 17:43 Method Of Arrival: EMS: [facility] mb9 17:43 Acuity: ETELVINA 3 mb9 Historical: - Allergies: 17:45 Mefoxin; mb9 17:45 Iodine; mb9 17:45 Proton Pump Inhibitors; mb9 - PMHx: 17:45 Diabetes - IDDM; Hypertension; Aneurysm; mb9 - PSHx: 17:45 Appendectomy; mb9 - Immunization history:: Adult Immunizations up to date. - Social history:: Smoking status: Patient denies any tobacco usage or history of. Screenin:[facility] ED Fall Risk Assessment (Adult) History of falling in the last 3 months, rs5 including since admission No falls in past 3 months (0 pts) Confusion or Disorientation No (0 pts) Intoxicated or Sedated No (0 pts) Impaired Gait No (0 pts) Mobility Assist Device Used No (0 pt) Altered Elimination No (0 pt) Score/Fall Risk Level 0 - 2 = Low Risk Oriented to surroundings, Maintained a safe environment. Abuse screen: Denies threats or abuse. Nutritional screening: No deficits noted. Tuberculosis screening: No symptoms or risk factors identified. Assessment: 17:45 General: Appears in no apparent distress. comfortable, Behavior is calm, cooperative. rs5 Pain: Denies pain. Neuro: Level of Consciousness is awake, alert, obeys commands, Oriented to person, place, time, situation, Tacker Off are equal bilaterally Moves all extremities. Gait is steady, Speech is normal, Facial symmetry appears normal, Pupils are PERRLA, Pupil Size: 3 mm Intact. Cardiovascular: Patient's skin is warm and dry. Rhythm is regular. Respiratory: Airway is patent Respiratory effort is even, unlabored, Respiratory pattern is regular, symmetrical. GI: Abdomen is round non-distended, Abd is soft and non tender X 4 quads. : No signs and/or symptoms were reported regarding the genitourinary system. : No signs and/or symptoms were reported regarding the genitourinary system. EENT: No signs and/or symptoms were reported regarding the EENT system. Derm: Skin is intact, Skin is pink, warm \\T\\ dry. Musculoskeletal: Range of motion: intact in all extremities. 17:45 Reassessment: pt states "I was driving earlier and I felt my whole body sort of lock up rs5 and it was difficult for me to move anything, I'm fine now but I'd like to get checked out". 18:12 Reassessment: Pt's right eye twitched and pt's jerked his head to the right side rs5 several times, family at bedside. Family states "he's has a history of seizures and I'm wondering if I just had another one, he did this before he was picked up by EMS". 18:13 Reassessment: provider at bedside . rs5 18:15 Neuro: Level of Consciousness is awake, alert, obeys commands, Oriented to person, rs5 place, time, situation, Tacker Off are equal bilaterally Moves all extremities. Speech is normal, Facial symmetry appears normal, Pupils are PERRLA, Intact. 18:47 Reassessment: Patient and/or family updated on plan of care and expected duration. Pain rs5 level reassessed. Patient is alert, oriented x 3, equal unlabored respirations, skin warm/dry/pink. Patient denies pain at this time. 19:43 Reassessment: Patient is alert, oriented x 3, equal unlabored respirations, skin as9 warm/dry/pink. Vital Signs: 17:43 BP 160 / 96; Pulse 84; Resp 18; Temp 98; Pulse Ox 97% on R/A; Weight 91.63 kg; Height 6 mb9 ft. 0 in. ; Pain 0/10; 18:16 BP 160 / 97; Pulse 87; Resp 17; Pulse Ox 99% on R/A; rs5 18:48 BP 177 / 77; Pulse 81; Resp 17; Pulse Ox 99% on R/A; rs5 19:30 BP 174 / 85; Pulse 85; Resp 18; Temp 97.7; Pulse Ox 96% on R/A; as9 21:26 BP 159 / 70; Pulse 80; Resp 19; Temp 98; Pulse Ox 99% on R/A; rv2 17:43 Body Mass Index 27.40 (91.63 kg, 182.88 cm) mb9 17:43 Pain Scale: Adult mb9 ED Course: 17:43 Patient arrived in ED. kb 17:43 Carmela Tejeda, RN is Primary Nurse. mb9 17:43 [facility]jar[facility]. kb 17:43 Mark Causey MD is Attending Physician. kb 17:45 Triage completed. mb9 17:45 Arm band placed on. mb9 17:45 Patient has correct armband on for positive identification. Placed in gown. Bed in low rs5 position. Side rails up X2. 17:46 Maintain EMS IV. Dressing intact. Good blood return noted. Site clean \\T\\ dry. Gauge \\T\\ mb 9 site: 18 g right AC. 17:48 Eron Wolf, RN is Primary Nurse. rs5 17:54 Basic Metabolic Panel Sent. mb9 17:54 CBC with Diff Sent. mb9 17:54 Hepatic Function Sent. mb9 17:54 Magnesium Sent. mb9 17:54 Protime (+inr) Sent. mb9 17:54 Ptt, Activated Sent. mb9 17:54 Troponin High Sensitivity Sent. mb9 17:54 EKG done, by ED staff, reviewed by Jenn ROBERSON. mb9 18:17 No provider procedures requiring assistance completed. rs5 18:35 Chest Single View XRAY In Process Unspecified. EDMS 19:07 CT Head Brain wo Cont In Process Unspecified. EDMS 19:25 Parag Neves MD is Hospitalizing Provider. kb 21:26 Patient admitted, IV remains in place. rv2 Administered Medications: 19:13 Drug: NS 0.9% IV 1000 ml IV at 1000 ml once Route: IV; Rate: 1000 ml; Site: right mb9 antecubital; 19:13 Drug: Insulin Regular Human IVP 10 units IVP once {Co-Signature: rajiv (Misael Hernandez9 RN).} Route: IVP; Site: right antecubital; Medication: 18:17 VIS not applicable for this client. rs5 Outcome: 19:25 Decision to Hospitalize by Provider. kb 21:25 Admitted to Med/surg accompanied by tech, via wheelchair, room 210, with chart, Report rv2 called to KALLI VASQUES 21:25 Condition: good 21:25 Instructed on the need for admit, :26 Patient left the ED. rv2 Signatures: Dispatcher [employer] EDMS Jenn Manjarrez, [employer]-Carmela Thomas, RN RN mb9 Eron Wolf, RN RN rs5 SHYANNE Tello Ron RN RN rv2 Misael Hernandez, RN RN as9 Misael Hernandez RN as9
[2023-11-16] MEDS ORDERED: ACETAMINOPHEN 325 MG TABLET PO PRN (20:21)
[2023-11-16] MEDS ORDERED: ONDANSETRON 4 MG/2 ML VIAL IV PRN (20:21)
--- NOTE | 2023-11-16 20:54 | P.HP ---
Certification for Inpatient Patient admitted to: Observation With expected LOS: <2 Midnights Practitioner: I am a practitioner with admitting privileges, knowledge of patient current condition, hospital course, and medical plan of care. Services: Services provided to patient in accordance with Admission requirements found in Title 42 Section 412.3 of the Code of Federal Regulations Patient History Date of Service: 11/17/23 Reason for admission: Suspected seizures, severe per glycemia. History of Present Illness: 73-year-old male patient with medical history significant for hypertension, diabetes type 2, hyperlipidemia, morbid obesity was evaluated for episode of suspected seizures. Patient reportedly was driving when he began to have episode of altered mentation and concerns for seizures. He was said to have stopped his car and episodes of went away but continued to have repeat episode so he decided come into the ED. In the ED was worked up and found to have blood glucose of greater than 700 and significant lethargy. He was admitted for inpatient observation and control of hyperglycemia. He denies chest pain, fever, chills, rigor, nausea, vomiting. He reported that he takes metformin glipizide and insulin for glucose control and he had recently been off Ozempic for weight loss. He reported he lost 80 pounds. Allergies iodine Allergy (Intermediate, Verified 11/16/23 21:57) BREATHING PROBLEMS cefoxitin sodium [From Mefoxin] Allergy (Mild, Verified 11/16/23 21:57) Shortness of breath tramadol Allergy (Verified 11/16/23 21:57) Anaphylaxis Proton Pump Inhi Allergy (Unknown, Uncoded 12/23/16 15:35) Unknown Home Medications: Amlodipine [Norvasc*] 5 mg PO BID 11/17/23 Benazepril HCl [Lotensin] 40 mg PO BID 11/17/23 Metformin HCl 1,000 mg PO BID 11/17/23 Potassium Chloride 10 meq PO BEDTIME 11/17/23 Rosuvastatin [Crestor*] 5 mg PO DAILY 11/17/23 glipiZIDE [Glipizide] 5 mg PO BID 11/17/23 - Past Medical/Surgical History Diabetic: Yes -: Hypertension -: Diabetes mellitus type 2 -: GI Bleed -: Acute CVA-hemorrhagic -: UTI -: Cardiac catheterization -: shoulder surgery -: knee surgery -: Appendectomy - Family History Mother -: Hypertension Father -: Diabetes - Social History Alcohol use: No CD- Drugs: No Caffeine use: Yes Review of Systems General: Weakness, Malaise Eyes: Unremarkable ENT: Unremarkable Respiratory: Unremarkable Cardiovascular: Unremarkable Gastrointestinal: Unremarkable Genitourinary: Unremarkable Musculoskeletal: Unremarkable Integumentary: Unremarkable Neurological: Unremarkable Lymphatics: Unremarkable Physical Examination - Physical Exam General: Alert, Oriented x3 HEENT: Atraumatic Neck: Supple Respiratory: Normal air movement Cardiovascular: Regular rate/rhythm, Normal S1 S2 Gastrointestinal: Hypoactive Musculoskeletal: No swelling Neurological: Normal speech, Normal strength at 5/5 x4 extr - Studies Laboratory Data (last 24 hrs) 11/16/23 11/16/23 11/16/23 17:51 17:51 17:51 WBC 5.00 Hgb 12.9 L Hct 36.6 L Plt Count 194 PT 10.5 INR 0.95 APTT 29.2 Sodium 131 L Potassium 4.5 BUN 19 H Creatinine 1.36 H Glucose 705 H* Magnesium 1.7 Total Bilirubin 0.4 AST 11 L ALT 19 Alkaline Phosphatase 70 Assessment and Plan - Plan Poorly controlled diabetes mellitus: Blood glucose of greater than 700 reported on labs. Patient had protocol and noncompliance with medication and diet. Will have an sliding scale insulin for glucose control and carb restricted diet while admitted. Will continue aggressive blood sugar control with high-dose sliding scale insulin. Will monitor blood sugar ACHS. Hypertension: Continue outpatient hypertensive medication and monitor vital signs per unit protocol Hyperlipidemia: Continue statin therapy Volume depletion: Patient has significant osmotic diuresis from hyperglycemia. Will continue hydration with isotonic fluid and monitor vitals closely. Prophylaxis: Lovenox for DVT prophylaxis. CODE STATUS: Full code Disposition: We will treat his suspected seizure, control blood sugar and discharge when deemed clinically stable. - Advance Directives Does patient have a Living Will: No Does patient have a Durable POA for Healthcare: No
[2023-11-16 22:04] VITALS: BMI 28.7
[2023-11-16] MEDS: INSULIN REGULAR (HUMAN) 100 UNIT/ML SQ SCH (22:12)
[2023-11-16] MEDS: NA CHLORIDE 0.9% 1,000 ML IV SCH (22:13)
[2023-11-17 06:34] LABS: Potassium 3.7 mEq/L (3.5-5.1)
[2023-11-17 06:36] LABS: Troponin High Sensitivity 180.8 pg/mL (<58.9)
[2023-11-17 07:13] LABS: Thyroid Stimulating Hormone 1.28 uIU/mL (0.358-3.740)
[2023-11-17] MEDS: METFORMIN HCL 500 MG TAB PO SCH (08:09)
[2023-11-17] MEDS: ENOXAPARIN 40 MG/0.4 ML SQ SCH (08:09)
[2023-11-17] MEDS: glipiZIDE 5 MG TAB PO SCH (08:10)
[2023-11-17] MEDS: ASPIRIN EC 81 MG TAB PO SCH (08:10)
[2023-11-17] MEDS: AMLODIPINE 5 MG TAB PO SCH (08:16)
[2023-11-17] MEDS: ROSUVASTATIN 5 MG TAB PO SCH (08:22)
--- NOTE | 2023-11-17 11:03 | RAD REPORT ---
EXAM DESCRIPTION: USCarotid Artery Bilateral11/17/2023 10:36 am CLINICAL HISTORY: syncope COMPARISON: None FINDINGS: The velocity of the right internal carotid artery equals 100 cm/sec. The right ICA/CCA ra brenna normal The velocity of the left internal carotid artery equals 77 cm/sec. The left ICA/CCA ratio normal Mild plaque is present within the carotid arteries. The vertebral arteries demonstrate antegrade flow IMPRESSION: No significant abnormalities displayed NASCET criteria used. Mild 0-49% stenosis Moderate 50-69% stenosis Severe 70-99% stenosis
[2023-11-17 11:56] VITALS: O2SAT 99
--- NOTE | 2023-11-17 16:31 | P.DS ---
Admission Date: 11/16/23 Discharge Date: 11/17/23 Disposition: ROUTINE DISCHARGE Discharge Condition: GOOD Reason for Admission: Suspected seizures, severe per glycemia. Consultations: CardiologyDrArt Fields NeurologyDr. Ruperto Brief History of Present Illness: 73-year-old male patient with medical history significant for hypertension, diabetes type 2, hyperlipidemia, morbid obesity was evaluated for episode of suspected seizures. Patient reportedly was driving when he began to have episode of altered mentation and concerns for seizures. He was said to have stopped his car and episodes of went away but continued to have repeat episode so he decided come into the ED. In the ED was worked up and found to have blood glucose of greater than 700 and significant lethargy. He was admitted for inpat ient observation and control of hyperglycemia. He denies chest pain, fever, chills, rigor, nausea, vomiting. He reported that he takes metformin glipizide and insulin for glucose control and he had recently been off Ozempic for weight loss. He reported he lost 80 pounds. Hospital Course: Problem List Diabetes type 2insulin-dependent with hyperglycemia Near syncope versus seizure Elevated troponin Hypertension Hyperlipidemia Patient was admitted to the hospital for hypoglycemia, near syncope versus partial seizure and elevated troponin. His blood sugar improved overnight, he reported he had been noncompliant with his diabetes medications recently. His troponins were mildly elevated but trended flat, he was evaluated by cardiology who recommended echocardiogram performed. Echocardiogram was performed with normal ejection fraction. Patient symptoms had resolved overnight, cardiology recommends outpatient follow-up for event monitor and further testing as well as discontinuation of amlodipine and starting metoprolol tartrate 25 mg by mouth twice daily as patient was also having bigeminy. Case was discussed with neurology as well recommended initiation of Keppra 500 mg by mouth twice daily and follow-up outpatient Please discontinue amlodipine 5 mg daily New medications: Keppra 500 mg by mouth twice daily Metropol tartrate 25 mg by mouth twice daily Please follow-up with: Dr. Fields-cardiology in [address] Hickey with neurology in 1 to 2 weeks Your primary care doctor in 1 week Vital Signs/Physical Exam: Temp Pulse Resp BP Pulse Ox 97.3 F 70 16 165/74 H 98 11/17/23 16:00 11/17/23 16:00 11/17/23 16:11/17/23 16:00 11/17/23 16:00 General: Alert, In no apparent distress, Oriented x3 HEENT: Atraumatic, PERRLA Neck: Supple, JVD not distended Respiratory: Clear to auscultation bilaterally, Normal air movement Cardiovascular: Regular rate/rhythm, Normal S1 S2 Gastrointestinal: Normal bowel sounds Musculoskeletal: No tenderness Integumentary: No rashes Neurological: Normal speech, Normal tone Laboratory Data at Discharge: WBC 5.00 thou/uL (4.3-10.9) 11/16/23 17:51 Hgb 12.9 g/dL (13.6-17.9) L 11/16/23 17:51 Hct 36.6 % (39.6-49.0) L 11/16/23 17:51 Plt Count 194 thou/uL (152-406) 11/16/23 17:51 PT 10.5 SECONDS (9.5-12.5) 11/16/23 17:51 INR 0.95 11/16/23 17:51 APTT 29.2 SECONDS (24.3-36.9) 11/16/23 17:51 Sodium 139 mEq/L (136-145) D 11/17/23 06:00 Potassium 3.7 mEq/L (3.5-5.1) D 11/17/23 06:00 BUN 14 mg/dL (7-18) 11/17/23 06:00 Creatinine 0.79 mg/dL (0.70-1.30) 11/17/23 06:00 Glucose 187 mg/dL (74-106) H 11/17/23 06:00 Magnesium 1.7 mg/dL (1.6-2.4) 11/16/23 17:51 Total Bilirubin 0.4 mg/dL (0.2-1.0) 11/16/23 17:51 AST 11 U/L (15-37) L 11/16/23 17:51 ALT 19 U/L (16-61) 11/16/23 17:51 Alkaline Phosphatase 70 U/L (45-117) 11/16/23 17:51 Home Medications: Benazepril HCl [Lotensin] 40 mg PO BID 11/17/23 Metformin HCl 1,000 mg PO BID 11/17/23 Metoprolol Tartrate 25 mg PO BID #60 tab 11/17/23 Potassium Chloride 10 meq PO BEDTIME 11/17/23 Rosuvastatin [Crestor*] 5 mg PO DAILY 11/17/23 glipiZIDE [Glipizide] 5 mg PO BID 11/17/23 levETIRAcetam [Keppra Tab] 500 mg PO BID 30 Days #60 tab 11/17/23 New Medications: levETIRAcetam [Keppra Tab] 500 mg PO BID 30 Days #60 tab Metoprolol Tartrate 25 mg PO BID #60 tab Physician Discharge Instructions: Patient was admitted to the hospital for hypoglycemia, near syncope versus partial seizure and elevated troponin. His blood sugar improved overnight, he reported he had been noncompliant with his diabetes medications recently. His troponins were mildly elevated but trended flat, he was evaluated by cardiology who recommended echocardiogram performed. Echocardiogram was performed with normal ejection fraction. Patient symptoms had resolved overnight, cardiology recommends outpatient follow-up for event monitor and further testing as well as discontinuation of amlodipine and starting metoprolol tartrate 25 mg by mouth twice daily as patient was also having bigeminy. Case was discussed with neurology as well recommended initiation of Keppra 500 mg by mouth twice daily and follow-up outpatient Please discontinue amlodipine 5 mg daily New medications: Keppra 500 mg by mouth twice daily Metropol tartrate 25 mg by mouth twice daily Please follow-up with: Dr. Fields-cardiology in [address] Hickey with neurology in 1 to 2 weeks Your primary care doctor in 1 week Diet: ADA Activity: Ad merrick Followup: Cheko Hickey MD [ASSOCIATE-ACTIVE - CAN ADMIT] - 1-2 Weeks Marquis Fields MD [ACTIVE - CAN ADMIT] - 1-2 Weeks Rambo Condon DO [Primary Care Provider] - 1 Week Time spent managing pt's care (in minutes): 35
[2023-11-17 16:32] VITALS: BP 165/74; TEMP 97.3
--- NOTE | 2023-11-17 17:24 | P.CNS ---
Date of Consult: 11/17/23 Chief Complaint: Suspected seizures, severe per glycemia. History of Present Illness: 73 y/o male with PMH of HTN, DM, HLD, presented with seizure like activity, denies any cardiac symptoms. Allergies iodine Allergy (Intermediate, Verified 11/16/23 21:57) BREATHING PROBLEMS cefoxitin sodium [From Mefoxin] Allergy (Mild, Verified 11/16/23 21:57) Shortness of breath tramadol Allergy (Verified 11/16/23 21:57) Anaphylaxis Proton Pump Inhi Allergy (Unknown, Uncoded 12/23/16 15:35) Unknown Home Medications: Benazepril HCl [Lotensin] 40 mg PO BID 11/17/23 Metformin HCl 1,000 mg PO BID 11/17/23 Metoprolol Tartrate 25 mg PO BID #60 tab 11/17/23 Potassium Chloride 10 meq PO BEDTIME 11/17/23 Rosuvastatin [Crestor*] 5 mg PO DAILY 11/17/23 glipiZIDE [Glipizide] 5 mg PO BID 11/17/23 levETIRAcetam [Keppra Tab] 500 mg PO BID 30 Days #60 tab 11/17/23 - Past Medical/Surgical History Diabetic: Yes -: Hypertension -: Diabetes mellitus type 2 -: GI Bleed -: Acute CVA-hemorrhagic -: UTI -: Cardiac catheterization -: shoulder surgery -: knee surgery -: Appendectomy - Family History Mother Medical History: Hypertension Father Medical History: Diabetes - Social History Smoking Status: Never smoker Alcohol use: No CD- Drugs: No Caffeine use: Yes Place of Residence: Home Review of Systems 10-point ROS is otherwise unremarkable Physical Examination Temp Pulse Resp BP Pulse Ox 97.3 F 70 16 165/74 H 98 11/17/23 16:00 11/17/23 16:00 11/17/23 16:00 11/17/23 16:00 11/17/23 16:00 General: Alert HEENT: Atraumatic Neck: Supple Respiratory: Clear to auscultation bilaterally Cardiovascular: No edema, Normal S1 S2 Gastrointestinal: Normal bowel sounds Laboratory Data (last 24 hrs) 11/16/23 11/16/23 11/16/23 17:51 17:51 17:51 WBC 5.00 Hgb 12.9 L Hct 36.6 L Plt Count 194 PT 10.5 INR 0.95 APTT 29.2 Sodium 131 L Potassium 4.5 BUN 19 H Creatinine 1.36 H Glucose 705 H* Magnesium 1.7 Total Bilirubin 0.4 AST 11 L ALT 19 Alkaline Phosphatase 70 - Problems (1) Syncope Current Visit: Yes Status: Acute Plan: patient denies having any active cardiac symptoms normal EF tele shows PVCs. advised to stop Norvasc and start lopressor 25 mg po BID follow up with cardiology
[2023-11-17] MEDS ORDERED: METOPROLOL TAR 25 MG TAB PO SCH (18:00)
[2023-11-17] MEDS ORDERED: ROSUVASTATIN 5 MG TAB PO SCH (21:00)
--- NOTE | 2023-11-18 06:41 | ECHO ---
HEIGHT: 6 ft 0 in WEIGHT: 211 lb 12.8 oz DATE OF STUDY: 11/17/[address]: Noe Tai NP 2-DIMENSIONAL: YES M.MODE: YES DOPPLER: YES COLOR FLOW: YES TDS: NO PORTABLE: YES DEFINITY: NO BUBBLE STUDY: NO DIAGNOSIS: NSTEMI CARDIAC HISTORY: CATHERIZATION: YES SURGERY: NO PROSTHETIC VALVE: NO PACEMAKER: NO MEASUREMENTS (cm) DIASTOLIC (NORMALS) SYSTOLIC (NORMALS) IVSd 1.2 (0.6-1.2) LA Diam 2.9 (1.9-4.0) LVEF 51% LVIDd 3.2 (3.5-5.7) LVIDs 2.4 (2.0-3.5) %FS 25% LVPWd 1.2 (0.6-1.2) Ao Diam 2.7 (2.0-3.7) 2 DIMENSIONAL ASSESSMENT: RIGHT ATRIUM: NORMAL LEFT ATRIUM: NORMAL RIGHT VENTRICLE: NORMAL LEFT VENTRICLE: NORMAL TRICUSPID VALVE: TRACE OF TRICUSPID REGURGITATION MITRAL VALVE: NORMAL PULMONIC VALVE: NORMAL AORTIC VALVE: NORMAL PERICARDIAL EFFUSION: NONE AORTIC ROOT: NORMAL LEFT VENTRICULAR WALL MOTION: NORMAL. DOPPLER/COLOR FLOW: SEE BELOW. COMMENTS: 1. NORMAL LEFT VENTRICULAR EJECTION FRACTION 50-55% 2. GRADE I DIASTOLIC DYSFUNCTION 3. TRACE OF TRICUSPID REGURGITATION TECHNOLOGIST: CRISTINA MAYFIELD
== END 2023-11-17 17:27 | disposition home or self-care (01) | DRG 639 ==
LOC: ER 17:42 → 2ND 20:21
PROVIDERS: ADMIT Internal Medicine Nephrology; ATTEND Hospitalist
DX: E11.65 Type 2 diabetes mellitus with hyperglycemia (principal); I10 Essential (primary) hypertension; E86.9 Volume depletion, unspecified; E78.5 Hyperlipidemia, unspecified; E66.01 Morbid (severe) obesity due to excess calories; T38.3X6A Underdosing of insulin and oral hypoglycemic [antidiabetic] drugs, initial encounter; R79.89 Other specified abnormal findings of blood chemistry; Z79.4 Long term (current) use of insulin; Z88.8 Allergy status to other drugs, medicaments and biological substances; Z79.84 Long term (current) use of oral hypoglycemic drugs; Z68.28 Body mass index [BMI] 28.0-28.9, adult; Z90.49 Acquired absence of other specified parts of digestive tract; Z79.899 Other long term (current) drug therapy; Z91.148 Patient's other noncompliance with medication regimen for other reason; Z91.128 Patient's intentional underdosing of medication regimen for other reason
CPT/HCPCS: 36415; 70450; 71045; 80048; 80076; 82550; 82947; 83036; 83735; 84439; 84443; 84484; 85025; 85610; 85730; 93306; 93880; 96374; 99285; J1650; J1815; J7030

== ENCOUNTER 2024-07-20 09:09 | Inpatient (IN) | payer OTHER ==
[2024-07-20] MEDS ORDERED: NA CHLORIDE 0.9% 1,000 ML ONE (10:46)
--- NOTE | 2024-07-20 11:10 | RAD REPORT ---
EXAMINATION: ONE VIEW CHEST XR CLINICAL INDICATION: COUGH TECHNIQUE: Frontal chest projection is submitted. Examination is limited by patient positioning and t echnique. COMPARISON: 11/16/2023 FINDINGS: Patchy poorly defined opacities are present in both lung bases suggesting atelectasis and pleural eff usion. [id number] pulmonary edema pattern is present. The heart is moderately enlarged in size. No displaced fractures identified. IMPRESSION: Findings would favor moderate CHF versus volume overload.
[2024-07-20 11:27] LABS: Absolute Basophils 0.1 K/uL (0-0.5); Absolute Eosinophils 0.1 K/uL (0-0.5); Absolute Lymphocytes (CBC) 1.1 K/uL (0.7-4.9); Absolute Monocytes 0.7 K/uL (0.1-1.3); Absolute Neutrophil 4.5 K/uL (1.8-8.0); Basophils % 0.9 % (0-1.3); Eosinophils % 2.2 % (0-4.4); Hematocrit 38.7 % (39.6-49.0); Hemoglobin 12.8 g/dL (13.6-17.9); Lymphocytes % 16.9 % (15.3-44.8); MCH 29.4 pg (27.0-35.0); MCHC 33.1 g/dL (32.0-36.0); MCV 88.7 fL (80-100); MPV 10.1 fL (7.6-11.3); Monocytes % 10.3 % (3.3-12.3); Neutrophils % 69.7 % (41.7-73.7); Platelets 242 thou/uL (152-406); RBC Red Blood Cell Count 4.36 M/uL (4.33-5.43); Red Cell Distribution Width 14.4 % (12.1-15.2)
[2024-07-20 11:28] LABS: PT Prothrombin Time 11.6 SECONDS (9.4-12.5); Protime INR 1.04
[2024-07-20 11:46] LABS: Specific Gravity 1.015 (1.005-1.030); Sqamous Epithelial <5 /HPF (None Seen); Urine Bacteria None Seen /HPF (<20); Urine Bilirubin NEGATIVE (Negative); Urine Blood 1+ (Negative); Urine Clarity Clear (Clear); Urine Color Light-Yellow (Yellow); Urine Culture Reflex Order NOT NEEDED; Urine Glucose 2+ (Negative); Urine Ketones NEGATIVE (Negative); Urine Microscopic Reflex YN ORDER UMIC; Urine Mucus Slight /HPF (None Seen); Urine Nitrite NEGATIVE (Negative); Urine Protein 3+ (Negative); Urine RBC <5 /HPF (None Seen); Urine Urobilinogen Normal (Normal); Urine WBC <5 /HPF (<5)
[2024-07-20 11:58] LABS: ALT/SGPT 37 U/L (16-61); AST/SGOT 23 U/L (15-37); Albumin 3.2 g/dL (3.4-5.0); Alkaline Phosphatase 62 U/L (45-117); Anion Gap 8.9 mEq/L (5.0-15.0); BUN Blood Urea Nitrogen 22 mg/dL (7-18); Bicarbonate 26 mEq/L (21-32); Bilirubin Total 0.4 mg/dL (0.2-1.0); Globulin 3.3 g/dL (2.3-3.5); Glomerular Filtration Rate 79 ml/min (=/>90); Glucose Level 79 mg/dL (74-106); Lipase 329 U/L (13-75); Magnesium 1.9 mg/dL (1.6-2.4); NT PRO-BNP 5616 pg/mL (<125); Potassium 3.9 mEq/L (3.5-5.1); Protein, Total 6.5 g/dL (6.4-8.2); Sodium Level 140 mEq/L (136-145)
[2024-07-20 12:00] LABS: Bilirubin Direct < 0.2 mg/dL (0-0.2); Bilirubin Indirect, Calculated 0.2 mg/dL (0.2-0.8)
[2024-07-20 12:01] LABS: Troponin High Sensitivity 137.9 pg/mL (<58.9)
[2024-07-20] MEDS ORDERED: CLOPIDOGREL 75 MG TABLET ONE (12:19)
[2024-07-20] MEDS ORDERED: ENOXAPARIN 100 MG/ML SYR SQ ONE (12:19)
[2024-07-20] MEDS ORDERED: ASPIRIN 81 MG CHEWABLE TABLET ONE (12:20)
[2024-07-20] MEDS ORDERED: FUROSEMIDE 40 MG/4 ML VIAL ONE (12:20)
[2024-07-20] MEDS ORDERED: FAMOTIDINE 20 MG/2 ML VIAL IV ONE (12:20)
--- NOTE | 2024-07-20 12:29 | ER ---
Nurse's Notes [facility] Name: En Rushing Jr Age: 74 yrs Sex: Male : 1950 Arrival Date: 07/20/2024 Time: 09:09 Bed 7 Private MD: Diagnosis: Non ST elevation OR;Combined systolic (congestive) and diastolic (congestive) heart failure;Essential (primary) hypertension Presentation: 07/20 09:32 Chief complaint: SOB that started while taking out the trash this morning, home BP hb 204/106. Coronavirus screen: At this time, the client does not indicate any symptoms associated with coronavirus-19. Ebola Screen: No symptoms or risks identified at this time. Initial Sepsis Screen: Does the patient meet any 2 criteria? No. Patient's initial sepsis screen is negative. Does the patient have a suspected source of infection? No. Patient's initial sepsis screen is negative. Risk Assessment: Do you want to hurt yourself or someone else? Patient reports no desire to harm self or others. Onset of symptoms was July 20, 2024. 09:32 Method Of Arrival: Ambulatory hb 09:32 Acuity: ETELVINA 3 hb Historical: - Allergies: 09:35 Iodine; hb 09:35 Mefoxin; hb 09:35 Proton Pump Inhibitors; hb - PMHx: 09:35 Aneurysm; Diabetes - IDDM; Hypertension; hb - PSHx: 09:35 Appendectomy; hb - Immunization history:: Adult Immunizations up to date. - Infectious Disease History:: Denies. - Social history:: Smoking status: Patient denies any tobacco usage or history of. - Family history:: not pertinent. Screenin:19 [facility] ED Fall Risk Assessment (Adult) History of falling in the last 3 months, kc6 including since admission No falls in past 3 months (0 pts) Confusion or Disorientation No (0 pts) Intoxicated or Sedated No (0 pts) Impaired Gait No (0 pts) Mobility Assist Device Used No (0 pt) Altered Elimination No (0 pt) Score/Fall Risk Level 0 - 2 = Low Risk Oriented to surroundings. Abuse screen: Denies threats or abuse. Denies injuries from another. Nutritional screening: No deficits noted. Tuberculosis screening: No symptoms or risk factors identified. Assessment: 11:20 General: Appears in no apparent distress. comfortable, well groomed, well developed, kc6 Behavior is calm, cooperative, appropriate for age. Pain: Denies pain. Neuro: Level of Consciousness is awake, alert, obeys commands, Oriented to person, place, time, situation, Appropriate for age. Cardiovascular: Reports shortness of breath, Denies chest pain, Capillary refill < 3 seconds Rhythm is sinus rhythm. Respiratory: Airway is patent Trachea midline Respiratory effort is even, unlabored, Respiratory pattern is regular, symmetrical, Breath sounds are clear bilaterally. GI: No signs and/or symptoms were reported involving the gastrointestinal system. : No signs and/or symptoms were reported regarding the genitourinary system. EENT: No signs and/or symptoms were reported regarding the EENT system. Derm: No signs and/or symptoms reported regarding the dermatologic system. Skin is intact, is healthy with good turgor, Skin is pink, warm \T\ dry. Musculoskeletal: No signs and/or symptoms reported regarding the musculoskeletal system. Circulation, motion, and sensation intact. Capillary refill < 3 seconds, Range of motion: intact in all extremities. 12:20 Reassessment: Patient appears in no apparent distress at this time. No changes from kc6 previously documented assessment. Patient and/or family updated on plan of care and expected duration. Pain level reassessed. Patient is alert, oriented x 3, equal unlabored respirations, skin warm/dry/pink. 13:20 Reassessment: Patient appears in no apparent distress at this time. No changes from kc6 previously documented assessment. Patient and/or family updated on plan of care and expected duration. Pain level reassessed. Patient is alert, oriented x 3, equal unlabored respirations, skin warm/dry/pink. Vital Signs: 09:32 BP 175 / 82; Pulse 74; Resp 18; Temp 97.9(TE); Pulse Ox 98% on R/A; Weight 102.06 kg; hb Height 6 ft. 0 in. ; Pain 0/10; 11:20 BP 159 / 77; Pulse 71; Resp 18 S; Pulse Ox 96% on R/A; kc6 12:13 BP 191 / 97; Pulse 72; Resp 18 S; Pulse Ox 97% on R/A; kc6 12:46 BP 173 / 97; kc6 09:32 Body Mass Index 30.52 (102.06 kg, 182.88 cm) hb 09:32 Pain Scale: Adult hb ED Course: 09:10 Patient arrived in ED. im 09:12 Jesus Motta MD is Attending Physician. james 09:35 Triage completed. hb 09:35 Arm band placed on. hb 10:44 Isabel Brunner, RN is Primary Nurse. kc6 11:05 XRAY Chest (1 view) In Process Unspecified. EDMS 11:19 Patient has correct armband on for positive identification. Bed in low position. Call kc6 light in reach. Side rails up X 1. Adult w/ patient. classroom monitor on. Pulse ox on. NIBP on. Door closed. Noise minimized. Lights dimmed. Pillow given. 11:19 Diet: Patient given juice. kc6 11:19 Inserted saline lock: 20 gauge in right forearm, using aseptic technique. Blood kc6 collected. Flushed with 10 mL NS. Patient maintains SpO2 saturation greater than 95% on room air. 11:39 Diet: Patient given juice. kc6 12:27 Gertrude Mustafa MD is Hospitalizing Provider. [facility] 14:11 Diet: Patient given snack. Patient given juice. kc6 15:28 No provider procedures requiring assistance completed. Patient admitted, IV remains in kc6 place. Administered Medications: 12:07 Discontinued: ns 0.9% 1000 ml IV at 1000 ml once; to be given as a bolus over 60 minutescha 11:19 Drug: NS 0.9% IV 1000 ml IV at 1000 ml once; to be given as a bolus over 60 minutes kc6 Route: IV; Rate: 1000 ml; Site: right forearm; 12:15 Follow up: Response: No adverse reaction; IV Status: Order to discontinue infusion kc6 12:31 Drug: Furosemide IVP 40 mg IVP once; give over 2 minutes Route: IVP; Site: right kc6 forearm; 14:10 Follow up: Response: No adverse reaction kc6 12:31 Drug: Aspirin PO Chewable Tablet 324 mg PO once; 81 mg tablets x 4 Route: PO; kc6 14:10 Follow up: Response: No adverse reaction kc6 12:31 Drug: Enoxaparin Sub-Q 100 mg Sub-Q once Route: Sub-Q; Site: right upper arm; kc6 14:10 Follow up: Response: No adverse reaction kc6 12:31 Drug: Clopidogrel PO 150 mg PO once Route: PO; kc6 14:10 Follow up: Response: No adverse reaction kc6 12:31 Not Given (Patient Refused): [id number] mg IVP once; dilute with 10 mL 0.9% NaCl; kc6 give over 2 minutes 12:46 Drug: Metoprolol PO 25 mg PO once Route: PO; kc6 14:10 Follow up: Response: No adverse reaction; Blood pressure is lowered kc6 13:51 Drug: benazepril PO 20 mg PO once Route: PO; kc6 14:10 Follow up: Response: No adverse reaction; Blood pressure is lowered kc6 Medication: 15:28 VIS not applicable for this client. kc6 Outcome: 12:29 Decision to Hospitalize by Provider. james 15:28 Admitted to ER Hold. Please see [facility] for further documentation. kc6 15:28 Condition: good 15:28 Instructed on the need for admit, 17:00 Patient left the ED. kc6 Signatures: Dispatcher [employer] Jesus Thomas MD MD cha Baxter, Heather, RN RN Isabel Contreras RN RN kc6 Emily Castaneda
--- NOTE | 2024-07-20 12:29 | EDPHYS ---
Physician Documentation [facility] Name: En Rushing Jr Age: 74 yrs Sex: Male : 1950 Arrival Date: 07/20/2024 Time: 09:09 Bed 7 Private MD: ED Physician Jesus Motta HPI: 07/20 12:17 This 74 yrs old Male presents to ER via Ambulatory with complaints of Shortness Of james Breath. 12:17 The patient has shortness of breath at rest, with light activity. Onset: The james symptoms/episode began/occurred 2 day(s) ago. The patient's shortness of breath is aggravated by exertion, light activity. The patient has elevated blood pressure and discovered this at home. Modifying factors: The symptoms are aggravated by activity, movement, The symptoms are alleviated by remaining still. Associated signs and symptoms: Pertinent positives: non-productive cough, dizziness. Severity of symptoms: At their worst the symptoms were moderate in the emergency department the symptoms are unchanged. Severity of symptoms: At its worst the blood pressure was moderate, in the emergency department the blood pressure is unchanged. Historical: - Allergies: 09:35 Iodine; hb 09:35 Mefoxin; hb 09:35 Proton Pump Inhibitors; hb - PMHx: 09:35 Aneurysm; Diabetes - IDDM; Hypertension; hb - PSHx: 09:35 Appendectomy; hb - Immunization history:: Adult Immunizations up to date. - Infectious Disease History:: Denies. - Social history:: Smoking status: Patient denies any tobacco usage or history of. - Family history:: not pertinent. ROS: 12:17 Constitutional: Negative for fever, chills, and weight loss, Eyes: Negative for injury, james pain, redness, and discharge, ENT: Negative for injury, pain, and discharge, Neck: Negative for injury, pain, and swelling, Cardiovascular: Negative for chest pain, palpitations, and edema, Abdomen/GI: Negative for abdominal pain, nausea, vomiting, diarrhea, and constipation, Back: Negative for injury and pain, : Negative for injury, bleeding, discharge, and swelling, MS/Extremity: Negative for injury and deformity, Skin: Negative for injury, rash, and discoloration, Neuro: Negative for headache, weakness, numbness, tingling, and seizure, Psych: Negative for depression, anxiety, suicide ideation, homicidal ideation, and hallucinations, Allergy/Immunology: Negative for hives, rash, and allergies, Endocrine: Negative for neck swelling, polydipsia, polyuria, polyphagia, and marked weight changes, Hematologic/Lymphatic: Negative for swollen nodes, abnormal bleeding, and unusual bruising, 12:17 Respiratory: Positive for cough, shortness of breath, on exertion. Exam: 12:17 Constitutional: This is a well developed, well nourished patient who is awake, alert, james and in no acute distress. Head/Face: Normocephalic, atraumatic. Eyes: Pupils equal round and reactive to light, extra-ocular motions intact. Lids and lashes normal. Conjunctiva and sclera are non-icteric and not injected. Cornea within normal limits. Periorbital areas with no swelling, redness, or edema. ENT: Nares patent. No nasal discharge, no septal abnormalities noted. Tympanic membranes are normal and external auditory canals are clear. Oropharynx with no redness, swelling, or masses, exudates, or evidence of obstruction, uvula midline. Mucous membranes moist. Chest/axilla: Normal chest wall appearance and motion. Nontender with no deformity. No lesions are appreciated. Cardiovascular: Regular rate and rhythm with a normal S1 and S2. No gallops, murmurs, or rubs. Normal PMI, no JVD. No pulse deficits. Abdomen/GI: Soft, non-tender, with normal bowel sounds. No distension or tympany. No guarding or rebound. No evidence of tenderness throughout. Back: No spinal tenderness. No costovertebral tenderness. Full range of motion. Male : Normal genitalia with no discharge or lesions. Skin: Warm, dry with normal turgor. Normal color with no rashes, no lesions, and no evidence of cellulitis. MS/ Extremity: Pulses equal, no cyanosis. Neurovascular intact. Full, normal range of motion. Neuro: Awake and alert, GCS 15, oriented to person, place, time, and situation. Cranial nerves II-XII grossly intact. Motor strength 5/5 in all extremities. Sensory grossly intact. Cerebellar exam normal. Normal gait. Psych: Awake, alert, with orientation to person, place and time. Behavior, mood, and affect are within normal limits. 12:17 Neck: External neck: no acute changes, ROM/movement: is normal, Lymph nodes: no appreciated lymphadenopathy, 12:17 Chest/axilla: Inspection: normal, Palpation: is normal, Axilla: are normal, Lymph nodes: lymphadenopathy is not appreciated, 12:17 Cardiovascular: JVD: is noted bilaterally, to 2 cm, 12:17 ECG was reviewed by the Attending Physician. Vital Signs: 09:32 BP 175 / 82; Pulse 74; Resp 18; Temp 97.9(TE); Pulse Ox 98% on R/A; Weight 102.06 kg; hb Height 6 ft. 0 in. ; Pain 0/10; 11:20 BP 159 / 77; Pulse 71; Resp 18 S; Pulse Ox 96% on R/A; kc6 12:13 BP 191 / 97; Pulse 72; Resp 18 S; Pulse Ox 97% on R/A; kc6 12:46 BP 173 / 97; kc6 09:32 Body Mass Index 30.52 (102.06 kg, 182.88 cm) hb 09:32 Pain Scale: Adult hb MDM: 09:12 Medical Screening Exam initiated james 12:22 Antibiotic administration: Not indicated. Differential diagnosis: Anemia Bronchitis CHF james exacerbation, Chronic Obstructive Pulmonary Disease Malignant HTN, Myocardial Infarction pneumonia, Pneumothorax Psychogenic. Immunization status: Pneumococcal vaccine: within last 5 years. Influenza vaccine: within last 5 years. Data reviewed: vital signs, nurses notes, lab test result(s), EKG, radiologic studies, plain films. Consideration of Admission/Observation Patient was admitted/placed on observation. Escalation of care including admission/observation considered. I considered the following discharge prescriptions or medication management in the emergency department Medications were administered in the Emergency Department. See MAR. Independent interpretation of the following test(s) in the Emergency Department EKG: See my EKG interpretation above. Test considered but Not performed: CT: ct chest . Historians other than the Patient: Family Member: daughters well informed. Care significantly affected by the following chronic conditions: Diabetes, Hypertension, Obesity. Counseling: I had a detailed discussion with the patient and/or guardian regarding the historical points, exam findings, and any diagnostic results supporting the discharge/admit diagnosis, the presence of at least one elevated blood pressure reading (>120/80) during this emergency department visit, lab results, the need for further work-up and treatment in the hospital. 07/20 09:14 Order name: Basic Metabolic Panel; Complete Time: 12:06 james 07/20 09:14 Order name: CBC with Diff; Complete Time: 12:06 james 07/20 09:14 Order name: LFT's; Complete Time: 12:06 james 07/20 09:14 Order name: Magnesium; Complete Time: 12:06 james 07/20 09:14 Order name: NT PRO-BNP; Complete Time: 12:06 james 07/20 09:14 Order name: PT-INR; Complete Time: 12:06 james 07/20 09:14 Order name: Troponin HS; Complete Time: 12:06 james 07/20 09:14 Order name: Lipase; Complete Time: 12:06 james 07/20 09:14 Order name: Urinalysis w/ reflexes; Complete Time: 12:06 james 07/20 13:05 Order name: Urinalysis w/ reflexes EDMS 07/20 13:05 Order name: Basic Metabolic Panel EDMS 07/20 13:05 Order name: Basic Metabolic Panel EDMS 07/20 13:05 Order name: Basic Metabolic Panel EDMS 07/20 13:05 Order name: Basic Metabolic Panel EDMS 07/20 13:05 Order name: CBC with Automated Diff EDMS 07/20 13:05 Order name: CBC with Automated Diff EDMS 07/20 13:05 Order name: CBC with Automated Diff EDMS 07/20 13:05 Order name: CBC with Automated Diff EDMS 07/20 13:05 Order name: Creatine Phosphokinase EDMS 07/20 13:05 Order name: Creatine Phosphokinase EDMS 07/20 13:05 Order name: Magnesium EDMS 07/20 13:05 Order name: Magnesium EDMS 07/20 13:05 Order name: Magnesium EDMS 07/20 13:05 Order name: Magnesium EDMS 07/20 13:05 Order name: NT PRO-BNP EDMS 07/20 13:05 Order name: NT PRO-BNP EDMS 07/20 13:05 Order name: NT PRO-BNP EDMS 07/20 13:05 Order name: NT PRO-BNP EDMS 07/20 14:08 Order name: Glucose, Ancillary Testing EDMS 07/20 09:14 Order name: XRAY Chest (1 view); Complete Time: 12:06 james 07/20 12:53 Order name: Echo w/ Doppler [facility] 07/20 13:05 Order name: CONS Physician Consult EDMS 07/20 09:14 Order name: Cardiac monitoring; Complete Time: : [facility] 07/20 09:14 Order name: EKG - Nurse/Tech; Complete Time: [facility] 07/20 09:14 Order name: IV Saline Lock; Complete Time: : [facility] 07/20 09:14 Order name: Labs collected and sent; Complete Time: : [facility] 07/20 09:14 Order name: O2 Per Protocol; Complete Time: [facility] 07/20 09:14 Order name: O2 Sat Monitoring; Complete Time: : [facility] EC:17 Rate is 72 beats/min. Rhythm is regular. QRS [place] is Normal. NV interval is prolonged james at 210 msec. QRS interval is normal. No Q waves. T waves are Normal. No ST changes noted. Clinical impression: NSR w/ Non-specific ST/T Changes, 1st degree heart block, and No evidence of ischemia. Interpreted by me. Reviewed by me. Administered Medications: 12:07 Discontinued: ns 0.9% 1000 ml IV at 1000 ml once; to be given as a bolus over 60 minutescha 11:19 Drug: NS 0.9% IV 1000 ml IV at 1000 ml once; to be given as a bolus over 60 minutes kc6 Route: IV; Rate: 1000 ml; Site: right forearm; 12:15 Follow up: Response: No adverse reaction; IV Status: Order to discontinue infusion kc6 12:31 Drug: Furosemide IVP 40 mg IVP once; give over 2 minutes Route: IVP; Site: right kc6 forearm; 14:10 Follow up: Response: No adverse reaction kc6 12:31 Drug: Aspirin PO Chewable Tablet 324 mg PO once; 81 mg tablets x 4 Route: PO; kc6 14:10 Follow up: Response: No adverse reaction kc6 12:31 Drug: Enoxaparin Sub-Q 100 mg Sub-Q once Route: Sub-Q; Site: right upper arm; kc6 14:10 Follow up: Response: No adverse reaction kc6 12:31 Drug: Clopidogrel PO 150 mg PO once Route: PO; kc6 14:10 Follow up: Response: No adverse reaction kc6 12:31 Not Given (Patient Refused): [id number] mg IVP once; dilute with 10 mL 0.9% NaCl; kc6 give over 2 minutes 12:46 Drug: Metoprolol PO 25 mg PO once Route: PO; kc6 14:10 Follow up: Response: No adverse reaction; Blood pressure is lowered kc6 13:51 Drug: benazepril PO 20 mg PO once Route: PO; kc6 14:10 Follow up: Response: No adverse reaction; Blood pressure is lowered kc6 Disposition Summary: 07/20/24 12:29 Hospitalization Ordered Notes: Hospitalization Status: Inpatient Admission james Provider: Gertrude Mustafa cha Location: Telemetry/MedSurg (Inpatient) james Condition: Stable james Problem: new james Symptoms: have improved james Bed/Room Type: Standard james Room Assignment: 218(07/20/24 15:47) eb Diagnosis - Non ST elevation OK james - Combined systolic (congestive) and diastolic (congestive) heart failure james - Essential (primary) hypertension james Forms: - Medication Reconciliation Form james - SBAR form james - Leadership Thank You Letter james Signatures: Dispatcher [employer] EDMS Jesus Motta MD MD cha Baxter, Heather, RN RN hb Botello, Elizabeth eb Campbell, Kaitlyn, RN RN kc6 Corrections: (The following items were deleted from the chart) 09:14 09:14 BASIC METABOLIC PANEL+C.LAB.BRZ ordered. EDMS EDMS 09:14 09:14 CBC+H.LAB.BRZ ordered. EDMS EDMS 09:14 09:14 HEPATIC FUNCTION+C.LAB.BRZ ordered. EDMS EDMS 09:14 09:14 MAGNESIUM+C.LAB.BRZ ordered. EDMS EDMS 09:14 09:14 PROBNP+C.LAB.BRZ ordered. EDMS EDMS 09:14 09:14 PROTIME (+INR)+COAG.LAB.BRZ ordered. EDMS EDMS 09:14 09:14 Troponin High Sensitivity+C.LAB.BRZ ordered. EDMS EDMS 09:14 09:14 LIPASE+C.LAB.BRZ ordered. EDMS EDMS 09:14 09:14 Urinalysis+U.LAB.BRZ ordered. EDMS EDMS 09:15 09:14 Chest Single View+RAD.RAD.BRZ ordered. EDMS EDMS 15:47 12:29 james eb
[2024-07-20] MEDS ORDERED: METOPROLOL TAR 25 MG TAB ONE (12:36)
[2024-07-20] MEDS: BENAZEPRIL 20 MG TAB PO ONE (13:00)
[2024-07-20] MEDS ORDERED: ONDANSETRON 4 MG/2 ML VIAL IV PRN (13:01)
[2024-07-20] MEDS ORDERED: ACETAMINOPHEN 500 MG TAB PO PRN (13:01)
[2024-07-20] MEDS: FUROSEMIDE 40 MG/4 ML VIAL IV SCH (13:04)
--- NOTE | 2024-07-20 13:09 | P.HP ---
Certification for Inpatient Patient admitted to: Inpatient <Mariana Orozco - Last Filed: 07/20/24 20:05> Patient History Date of Service: 07/20/24 Reason for admission: Acute Heart Failure, NSTEMI History of Present Illness: 74-year-old male with a past medical history Aneurysm; Diabetes - IDDM; Hypertension; presents to the emergency room with shortness of breath. He reports shortness of breath worse with exertion, worse while lying flat. He reports productive cough, he reports lower extremity edema over the past few days. No reported chest pain, abdominal pain, fever, nausea vomiting diarrhea. No reported history of congestive heart failure. Plan to admit for NSTEMI, acute on chronic heart failure, - Past Medical/Surgical History Diabetic: Yes -: Hypertension -: Diabetes mellitus type 2 -: GI Bleed -: Acute CVA-hemorrhagic -: UTI -: Cardiac catheterization -: shoulder surgery -: knee surgery -: Appendectomy - Family History Mother -: Hypertension Father -: Diabetes - Social History Alcohol use: No CD- Drugs: No Caffeine use: Yes <Mariana Orozco - Last Filed: 07/20/24 20:05> Date of Service: 07/20/24 <Gertrude Mustafa - Last Filed: 07/22/24 17:46> Allergies iodine Allergy (Intermediate, Verified 11/16/23 21:57) BREATHING PROBLEMS cefoxitin sodium [From Mefoxin] Allergy (Mild, Verified 11/16/23 21:57) Shortness of breath tramadol Allergy (Verified 11/16/23 21:57) Anaphylaxis Proton Pump [place] Allergy (Unknown, Uncoded 12/23/16 15:35) Unknown Home Medications: Benazepril HCl [Lotensin] 40 mg PO BID 11/17/23 Metformin HCl 1,000 mg PO BID 11/17/23 Metoprolol Tartrate 25 mg PO BID #60 tab 11/17/23 Potassium Chloride 10 meq PO BEDTIME 11/17/23 Rosuvastatin [Crestor*] 10 mg PO BEDTIME 11/17/23 glipiZIDE [Glipizide] 5 mg PO BID 11/17/23 hydroCHLOROthiazide [Hydrochlorothiazide*] 25 mg PO DAILY 07/21/24 Review of Systems 10-point ROS is otherwise unremarkable General: As per HPI <Mariana Orozco - Last Filed: 07/20/24 20:05> Physical Examination - Physical Exam General: Alert, In no apparent distress, Oriented x3 HEENT: Atraumatic, Normocephalic Neck: Supple, JVD not distended Respiratory: Normal air movement, Diminished Cardiovascular: Normal pulses, Other (Sinus rhythm first-degree AV block) Capillary refill: <2 Seconds Gastrointestinal: Normal bowel sounds, Soft and benign Musculoskeletal: No swelling, No contractures Neurological: Normal speech, Normal strength at 5/5 x4 extr, Normal affect - Studies Laboratory Data (last 24 hrs) 07/20/24 07/20/24 07/20/24 11:15 11:15 11:15 WBC 6.50 Hgb 12.8 L Hct 38.7 L Plt Count 242 PT 11.6 INR 1.04 Sodium 140 Potassium 3.9 BUN 22 H Creatinine 1.00 Glucose 79 Magnesium 1.9 Total Bilirubin 0.4 AST 23 ALT 37 Alkaline Phosphatase 62 Lipase 329 H <Mariana Orozco - Last Filed: 07/20/24 20:05> Assessment and Plan - Problems (Diagnosis) (1) Acute pancreatitis Current Visit: Yes Status: Acute (2) NSTEMI (non-ST elevated myocardial infarction) Current Visit: Yes Status: Acute (3) Acute on chronic heart failure Current Visit: Yes Status: Acute (4) Hypertensive emergency Current Visit: Yes Status: Acute (5) Essential hypertension Current Visit: Yes Status: Acute (6) History of subarachnoid hemorrhage Current Visit: Yes Status: Acute (7) Insulin dependent type 2 diabetes mellitus Current Visit: Yes Status: Acute - Plan Assessment plan Acute pancreatitis N.p.o., as needed analgesics, trend lipase No reported chest pain NSTEMI Hypertensive emergency-end organ damage with NSTEMI Acute heart failure unknown baseline Essential hypertension Cardiology consult, telemetry, Plavix, Lopressor, aspirin as needed antihypertensive, lovenox 1 mg/kg every 12 Diuretics, resume home antihypertensive, metoprolol, Lasix,, nitro as needed analgesics, echo completed on Tuesday, needs to be read Daily weights, I&O, Trend troponins, lipid panel, Aspirin, antilipid, as needed analgesics, Rate is 72 beats/min. Rhythm is regular. QRS [place] is Normal. [place] interval is prolonged at 210 msec. QRS interval is normal. No Q waves. T waves are Normal. No ST changes noted. Clinical impression: NSR w/ Non-specific ST/T Changes, 1st degree heart block, and No evidence of ischemia Insulin-dependent diabetes mellitus Accu-Cheks, sliding scale insulin, Resume long-acting insulin History of brain aneurysm, History of subarachnoid hemorrhage, No residual deficit Discharge Plan: Home - Advance Directives Does patient have a Living Will: No Does patient have a Durable POA for Healthcare: No - Code Status/Comfort Care Code Status: Full Code Critical Care: No Time Spent Managing Pts Care (In Minutes): 55 <Mariana Orozco - Last Filed: 07/20/24 20:05> Date of Service: 07/20/24 Patient was seen and examined. Events of the last 24 hours have been noted. Spoke with with LALO regarding patient's clinical picture after evaluating and examining the patient independently. I performed a substantial part of the MDM during this patient's care today. I personally made or approved the documented management plan and acknowledge its risk of complications. I agree with the findings and documentation provided in the LALO's notes. Patient is a 74-year-old gentleman came to the hospital with chest pain and shortness of breath. Patient had an elevated troponin so patient was brought into the emergency room for further evaluation. At this time, we are awaiting for cardiology consulted for further recommendation. Echocardiogram results pending. Continue with diuresing and followed and check serial troponins. Continue with anticoagulation and antiplatelet therapy and statin therapy. <Gertrude Mustafa - Last Filed: 07/22/24 17:46>
[2024-07-20] MEDS: INSULIN REGULAR (HUMAN) 100 UNIT/ML SQ SCH (16:30)
[2024-07-20] MEDS: METOPROLOL TAR 50 MG TAB PO ONE (18:33)
[2024-07-20] MEDS: HYDROCODONE/APAP 5/325 MG TAB PO PRN (18:33)
[2024-07-20] MEDS ORDERED: NITROGLYCERIN 0.4 MG/TAB SL PRN (19:48)
[2024-07-20] MEDS ORDERED: MORPHINE 2 MG/ML SYR IV PRN (19:48)
[2024-07-20] MEDS: METOPROLOL TARTRATE 5 MG/5 ML INJ IV STA (21:18)
[2024-07-20] MEDS: POTASSIUM CL SA 10 MEQ TAB PO SCH (21:19)
[2024-07-20] MEDS: ENOXAPARIN 100 MG/ML SYR SQ SCH (21:20)
[2024-07-20] MEDS: METOPROLOL TAR 25 MG TAB PO SCH (21:20)
[2024-07-20] MEDS: BENAZEPRIL 20 MG TAB PO SCH (21:20)
[2024-07-21] MEDS: ALPRAZOLAM 0.25 MG TABLET PO PRN (00:43)
[2024-07-21] MEDS: HYDRALAZINE HCL 20 MG/ML VIAL IV PRN (04:37)
[2024-07-21 05:55] LABS: Absolute Basophils 0.1 K/uL (0-0.5); Absolute Eosinophils 0.2 K/uL (0-0.5); Absolute Lymphocytes (CBC) 1.6 K/uL (0.7-4.9); Absolute Monocytes 0.8 K/uL (0.1-1.3); Absolute Neutrophil 3.8 K/uL (1.8-8.0); Basophils % 0.8 % (0-1.3); Eosinophils % 3.3 % (0-4.4); Hematocrit 39.6 % (39.6-49.0); Hemoglobin 13.7 g/dL (13.6-17.9); Lymphocytes % 25.2 % (15.3-44.8); MCH 30.3 pg (27.0-35.0); MCHC 34.6 g/dL (32.0-36.0); MCV 87.4 fL (80-100); MPV 10.1 fL (7.6-11.3); Monocytes % 12.2 % (3.3-12.3); Neutrophils % 58.5 % (41.7-73.7); Nucleated Red Blood Cells % 0.2 % (0-0); Platelets 241 thou/uL (152-406); RBC Red Blood Cell Count 4.53 M/uL (4.33-5.43); Red Cell Distribution Width 14.7 % (12.1-15.2)
[2024-07-21 06:16] LABS: Anion Gap 8.6 mEq/L (5.0-15.0); Magnesium 1.9 mg/dL (1.6-2.4); Potassium 3.6 mEq/L (3.5-5.1)
--- NOTE | 2024-07-21 08:43 | P.PN ---
Date of Service: 07/21/24 subjective reports shortenss of breath improved, no reported chest pain Review of Systems 10-point ROS is otherwise unremarkable General: As per HPI Physical Examination - Physical Exam Vital signs reviewed General: Alert, In no apparent distress, Oriented x3,no acute distress noted HEENT: Atraumatic, Normocephalic Neck: Supple, JVD not distended Respiratory: Normal air movement, unlabored Cardiovascular: Normal pulses, Other (Sinus rhythm first-degree AV block) Capillary refill: <2 Seconds Gastrointestinal: Normal bowel sounds, Soft and benign Musculoskeletal: No swelling, No contractures Neurological: Normal speech, Normal strength at 5/5 x4 extr, Normal affect Assessment and Plan - Problems (Diagnosis) (1) Acute pancreatitis Current Visit: Yes Status: Acute (2) NSTEMI (non-ST elevated myocardial infarction) Current Visit: Yes Status: Acute (3) Acute on chronic diastolic heart failure Current Visit: Yes Status: Acute (4) Hypertensive emergency hyprlipidemia Current Visit: Yes Status: Acute (5) Essential hypertension Current Visit: Yes Status: Acute (6) History of subarachnoid hemorrhage Current Visit: Yes Status: Acute (7) Insulin dependent type 2 diabetes mellitus Current Visit: Yes Status: Acute (8) hyprlipidemia - Plan Assessment plan Acute pancreatitis N.p.o., as needed analgesics, trend lipase No reported chest pain 329->155 NSTEMI Hypertensive emergency-end organ damage with NSTEMI Acute heart failure unknown baseline Essential hypertension Cardiology consult, telemetry, ECHO ordered Plavix, Lopressor, aspirin as needed antihypertensive, lovenox 1 mg/kg every 12 Diuretics, resume home antihypertensive, metoprolol, Lasix,, nitro as needed analgesics, echo completed on Tuesday, needs to be read Daily weights, I&O, Trend troponins, lipid panel, Aspirin, antilipid, as needed analgesics, Rate is 72 beats/min. Rhythm is regular. QRS [place] is Normal. [place] interval is prolonged at 210 msec. QRS interval is normal. No Q waves. T waves are Normal. No ST changes noted. Clinical impression: NSR w/ Non-specific ST/T Changes, 1st degree heart block, and No evidence of ischemia trop 137.9->129.3 bnp 5616->5137 Insulin-dependent diabetes mellitus uncontrolled Accu-Cheks, sliding scale insulin, Resume long-acting insulin reports losing 85 lbs after wt loss intentional, taking less 70/30 insilin History of brain aneurysm, History of subarachnoid hemorrhage, No residual deficit Discharge Plan: Home - Advance Directives Does patient have a Living Will: No Does patient have a Durable POA for Healthcare: No - Code Status/Comfort Care Code Status: Full Code Critical Care: No Time Spent Managing Pts Care (In Minutes): 35 <Mariana Orozco - Last Filed: 07/21/24 21:42> Patient was seen and examined. Events of the last 24 hours have been noted. Spoke with with LALO regarding patient's clinical picture after evaluating and examining the patient independently. I performed a substantial part of the MDM during this patient's care today. I personally made or approved the documented management plan and acknowledge its risk of complications. I agree with the findings and documentation provided in the LALO's notes. Was concerned about his blood sugar being elevated and patient's shortness of breath was worsening. We continue with diuresing and added his insulin to his regimen. Echocardiogram with severe pulmonary hypertension with an ejection fraction of 50%. No significant wall motion abnormality. <Gertrude Mustafa - Last Filed: 07/22/24 17:47>
[2024-07-21] MEDS ORDERED: GLUCAGON 1 MG/VIAL IM PRN (08:48)
[2024-07-21] MEDS ORDERED: D50W 25 GM/50 ML SYRINGE IV PRN (08:48)
[2024-07-21] MEDS: ROSUVASTATIN 5 MG TAB PO SCH (09:00)
[2024-07-21] MEDS ORDERED: ASPIRIN 325 MG TAB PO SCH (09:00)
[2024-07-21] MEDS ORDERED: D10W 125 ML IV PRN (09:08)
[2024-07-21] MEDS: INSULIN 70/30 100 UNITS/ML SQ SCH ×2 (09:30→14:00)
[2024-07-21] MEDS: ASPIRIN EC 81 MG TAB PO SCH (09:32)
[2024-07-21] MEDS: SPIRONOLACTONE 25 MG TABLET PO SCH (09:32)
[2024-07-21] MEDS: cloNIDine HCL 0.1 MG TAB PO SCH (09:37)
[2024-07-21] MEDS: FUROSEMIDE 40 MG/4 ML VIAL IV SCH (09:38)
--- NOTE | 2024-07-21 21:15 | CON ---
Date of Consultation: 07/20/2024 Reason For Consultation: Elevated troponin, heart failure, and shortness of breath. History Of Present Illness: A 74-year-old male with past medical history of diabetes, insulin indepe ndent; hypertension; diastolic heart failure, presented with shortness of breath that was initially o n exertion, became worse even at rest, also lying flat produces symptoms and does have lower extremit y edema, but denies having any chest pain. No nausea, vomiting, or diarrhea. No dysuria, polyuria, or urinary urgency. No other complaints. Past Medical History: Hypertension, diabetes, GI bleed, and CVA. Medications: Refer to reconciliation sheet for detailed list. Allergies: IODINE, , TRAMADOL. Family History: No premature coronary artery disease or cancer. Social History: He does not drink, smoke, or use any drugs. Review of Systems: All systems reviewed and they were negative except as mentioned in the HPI. Physical Examination: Vital Signs: Reviewed. Head and Neck: Pupils are equal, reactive to light. Intact eye movements. No JVD. No cervical lym phadenopathy. Neck is supple. Thyroid is not enlarged. Lungs: Decreased breathing sounds with faint crackles in bases. No accessory muscle use or muscle r etraction. Heart: Irregular with S3 gallop. Abdomen: Soft, nontender. Bowel sounds positive. No organomegaly. No masses or hernia. No rigidi ty or rebound. Extremities: Positive edema. No clubbing or cyanosis. Intact pulses. Skin: No rash. No nodule. Neurologic: Alert, awake, oriented x3. No acute focal deficits appreciated. Lymph Nodes: No cervical or axillary lymphadenopathy. Investigations: Echo 2 months ago showed a grade 1 diastolic dysfunction, otherwise no significant a bnormality. The labs showed BUN is 22, creatinine is 1. Troponin 137. BNP is 5616. Assessment And Recommendations: 1.Acute on chronic diastolic heart failure exacerbation. The patient is definitely fluid overloaded . I recommend IV Lasix 40 mg q.12 hours. Carefully monitor BUN, creatinine, electrolytes, and low-s alt diet. 2.Hypertension. Blood pressure is not controlled after appropriate diuresis. Blood pressure medici ulises to be adjusted to get blood pressure below 140 in a constant manner. 3.Elevated troponin. No chest pain. It is likely demand. I recommend outpatient stress test unles s the troponin trends up. 4.Dyslipidemia. Continue statin. We will monitor this patient with you and thank you for the consult. /MATTIE Voice ID: [id number] Report ID: [id number]
[2024-07-22 05:39] LABS: Absolute Eosinophils 0.2 K/uL (0-0.5); Absolute Lymphocytes (CBC) 0.9 K/uL (0.7-4.9); Absolute Monocytes 0.7 K/uL (0.1-1.3); Absolute Neutrophil 4.6 K/uL (1.8-8.0); Basophils % 0.7 % (0-1.3); Eosinophils % 3.1 % (0-4.4); Hematocrit 39.2 % (39.6-49.0); Hemoglobin 13.1 g/dL (13.6-17.9); Lymphocytes % 14.5 % (15.3-44.8); MCH 29.3 pg (27.0-35.0); MCHC 33.5 g/dL (32.0-36.0); MCV 87.7 fL (80-100); MPV 10.2 fL (7.6-11.3); Monocytes % 10.3 % (3.3-12.3); Neutrophils % 71.4 % (41.7-73.7); Nucleated Red Blood Cells % 0.1 % (0-0); Platelets 230 thou/uL (152-406); RBC Red Blood Cell Count 4.47 M/uL (4.33-5.43); Red Cell Distribution Width 14.7 % (12.1-15.2)
[2024-07-22 05:57] LABS: Anion Gap 9.8 mEq/L (5.0-15.0); Magnesium 2.1 mg/dL (1.6-2.4); Potassium 3.8 mEq/L (3.5-5.1)
--- NOTE | 2024-07-22 06:55 | RAD REPORT ---
EXAMINATION: ONE VIEW CHEST XR CLINICAL INDICATION: Male, 74 years old.pneumonia TECHNIQUE: 1 View, AP supine, X-ray of the chest was performed. [id number]. COMPARISON: 07/20/2024 FINDINGS: Lungs and pleura: Haziness bilaterally which may reflect congestive heart failure. Small pleural effu sions difficult to exclude.. Slight improved aeration with increased lung volumes compared with prior. Heart and mediastinum: Similar cardiomegaly. Unremarkable mediastinal contours. Osseous structures: No acute abnormality. Tubes/lines: None Other: None. IMPRESSION: Mild hazy opacities with cardiomegaly could reflect continued mild pulmonary edema though with some i mprovement from prior.
--- NOTE | 2024-07-22 08:27 | P.PN ---
Date of Service: 07/22/24 subjective reports shortness of breath improved, no reported chest pain pending card to eval Review of Systems 10-point ROS is otherwise unremarkable General: As per HPI Physical Examination - Physical Exam Vital signs reviewed General: Alert, In no apparent distress, Oriented x3,no acute distress noted HEENT: Atraumatic, Normocephalic Neck: Supple, JVD not distended Respiratory: Normal air movement, unlabored Cardiovascular: Normal pulses, Other (Sinus rhythm first-degree AV block) Capillary refill: <2 Seconds Gastrointestinal: Normal bowel sounds, Soft and benign Musculoskeletal: No swelling, No contractures Neurological: Normal speech, Normal strength at 5/5 x4 extr, Normal affect Assessment and Plan - Problems (Diagnosis) (1) Acute pancreatitis Current Visit: Yes Status: Acute (2) NSTEMI (non-ST elevated myocardial infarction) Current Visit: Yes Status: Acute (3) Acute on chronic diastolic heart failure Current Visit: Yes Status: Acute (4) Hypertensive emergency hyprlipidemia Current Visit: Yes Status: Acute (5) Essential hypertension Current Visit: Yes Status: Acute (6) History of subarachnoid hemorrhage Current Visit: Yes Status: Acute (7) Insulin dependent type 2 diabetes mellitus Current Visit: Yes Status: Acute (8) hyprlipidemia - Plan Assessment plan Acute pancreatitis impoved N.p.o., as needed analgesics, trend lipase No reported chest pain 329->155-28 NSTEMI Hypertensive emergency-end organ damage with NSTEMI Acute heart failure unknown baseline Essential hypertension Cardiology consult, telemetry, ECHO ordered Plavix, Lopressor, aspirin as needed antihypertensive, lovenox 1 mg/kg every 12 Diuretics, resume home antihypertensive, metoprolol, Lasix,, nitro as needed analgesics, echo completed on Tuesday, needs to be read Daily weights, I&O, Trend troponins, lipid panel, Aspirin, antilipid, as needed analgesics, Rate is 72 beats/min. Rhythm is regular. QRS [place] is Normal. [place] interval is prolonged at 210 msec. QRS interval is normal. No Q waves. T waves are Normal. No ST changes noted. Clinical impression: NSR w/ Non-specific ST/T Changes, 1st degree heart block, and No evidence of ischemia trop 137.9->129.3-136 bnp 5616->[id number] Insulin-dependent diabetes mellitus uncontrolled noncompliant with insulin Accu-Cheks, sliding scale insulin, Resume long-acting insulin reports losing 85 lbs after wt loss intentional, taking less 70/30 insulin ua glucosuria History of brain aneurysm, History of subarachnoid hemorrhage, No residual deficit Discharge Plan: Home - Advance Directives Does patient have a Living Will: No Does patient have a Durable POA for Healthcare: No - Code Status/Comfort Care Code Status: Full Code Critical Care: No Time Spent Managing Pts Care (In Minutes): 35 <Mariana Orozco - Last Filed: 07/22/24 08:22> Patient was seen and examined. Events of the last 24 hours have been noted. Spoke with with LALO regarding patient's clinical picture after evaluating and examining the patient independently. I performed a substantial part of the MDM during this patient's care today. I personally made or approved the documented management plan and acknowledge its risk of complications. I agree with the findings and documentation provided in the LALO's notes. Troponins have normalized. Continuing with anticoagulation. Waiting for cardiology input. Make n.p.o. after midnight for possible cardiac catheterization. Continue with antiplatelet therapy and statin therapy. Anticipate discharge over the next 48 hours. Echocardiogram did reveal severe pulmonary hypertension so we will consult pulmonary <Gertrude Mustafa - Last Filed: 07/22/24 17:48>
[2024-07-22 14:45] VITALS: BMI 30.2
[2024-07-22] MEDS: ROSUVASTATIN 5 MG TAB PO SCH (21:10)
[2024-07-22 21:20] VITALS: O2SAT 96
[2024-07-23 06:01] LABS: Absolute Eosinophils 0.3 K/uL (0-0.5); Absolute Lymphocytes (CBC) 1.2 K/uL (0.7-4.9); Absolute Monocytes 0.7 K/uL (0.1-1.3); Absolute Neutrophil 3.3 K/uL (1.8-8.0); Basophils % 0.5 % (0-1.3); Eosinophils % 4.9 % (0-4.4); Hematocrit 38.7 % (39.6-49.0); Hemoglobin 13.5 g/dL (13.6-17.9); Lymphocytes % 22.2 % (15.3-44.8); MCH 30.3 pg (27.0-35.0); MCHC 34.9 g/dL (32.0-36.0); MCV 86.7 fL (80-100); MPV 10.2 fL (7.6-11.3); Monocytes % 13.3 % (3.3-12.3); Neutrophils % 59.1 % (41.7-73.7); Nucleated Red Blood Cells % 0.2 % (0-0); Platelets 243 thou/uL (152-406); RBC Red Blood Cell Count 4.47 M/uL (4.33-5.43); Red Cell Distribution Width 14.1 % (12.1-15.2)
[2024-07-23 06:15] LABS: Anion Gap 8.6 mEq/L (5.0-15.0); Magnesium 2.1 mg/dL (1.6-2.4); Potassium 3.6 mEq/L (3.5-5.1)
[2024-07-23 06:18] LABS: Troponin High Sensitivity 120.6 pg/mL (<58.9)
--- NOTE | 2024-07-23 07:29 | ECHO ---
HEIGHT: 6 ft 0 in WEIGHT: 220 lb 14.4 oz DATE OF STUDY: 07/20/[address]: Jesus Motta MD 2-DIMENSIONAL: YES M.MODE: YES DOPPLER: YES COLOR FLOW: YES TDS: PORTABLE: YES DEFINITY: BUBBLE STUDY: DIAGNOSIS: CONGESTIVE HEART FAILURE/ NON ST ELEVATION MYOCARDIAL INFARCTION CARDIAC HISTORY: CATHERIZATION: SURGERY: PROSTHETIC VALVE: PACEMAKER: MEASUREMENTS (cm) DIASTOLIC (NORMALS) SYSTOLIC (NORMALS) IVSd 1.2 (0.6-1.2) LA Diam 5.2 (1.9-4.0) LVEF 50% LVIDd 5.8 (3.5-5.7) LVIDs 4.9 (2.0-3.5) %FS LVPWd 1.4 (0.6-1.2) Ao Diam 2.8 (2.0-3.7) 2 DIMENSIONAL ASSESSMENT: RIGHT ATRIUM: NORMAL LEFT ATRIUM: ENLARGED RIGHT VENTRICLE: NORMAL LEFT VENTRICLE: MILD LEFT VENTRICULAR HYPERTROPHY TRICUSPID VALVE: MILD TRICUSPID REGURGITATION MITRAL VALVE: MILD MITRAL REGURGITATION, NORMAL PULMONIC VALVE: NORMAL AORTIC VALVE: NORMAL PERICARDIAL EFFUSION: NONE AORTIC ROOT: NORMAL LEFT VENTRICULAR WALL MOTION: MILD GLOBAL HYPOKINESIS DOPPLER/COLOR FLOW: SEE BELOW COMMENTS: 1. LOW NORMAL LEFT VENTRICULAR EJECTION FRACTION - 50% 2. MILD GLOBAL HYPOKINESIS 3. MODERATE DIASTOLIC DYSFUNCTION 4. SEVERE PULMONARY HYPERTENSION WITH RIGHT VENTRICULAR SYSTOLIC PRESSURE GREATER THAN 60 mmHg 5. LEFT ATRIAL ENLARGEMENT 6. MILD MITRAL REGURGITATION, TRICUSPID REGURGITATION TECHNOLOGIST: RYNE [place]
--- NOTE | 2024-07-23 09:58 | P.PN ---
Subjective Date of Service: 07/23/24 Chief Complaint: Acute Heart Failure, NSTEMI Subjective: Improving (feeling significantly better, 5# wt loss. Pt states his FSBS is 160 this am, at target. Denies abd pain even with elevated lipase. Pt is NPO and "starving". ECHO done Tuesday pre diuresis) Review of Systems 10-point ROS is otherwise unremarkable General: Unremarkable Eyes: Unremarkable ENT: Unremarkable Respiratory: Shortness of Breath (Improved) Cardiovascular: Other (Denies chest pain, palpitations, edema) Gastrointestinal: Other (Denies abdominal pain) Genitourinary: Other (States 5 pound weight loss with diuresis) Musculoskeletal: Unremarkable Integumentary: Unremarkable Neurological: Unremarkable Lymphatics: Unremarkable Physical Examination - Vital Signs Temperature: 97.4 F Blood Pressure: 150/77 Pulse: 78 Respirations: 20 Pulse Ox (%): 97 - Physical Exam General: Alert, In no apparent distress, Oriented x3 HEENT: Atraumatic, Normocephalic Neck: Supple Respiratory: Normal air movement Cardiovascular: No edema, Regular rate/rhythm, Normal S1 S2 Capillary refill: <2 Seconds Gastrointestinal: Soft and benign Musculoskeletal: No clubbing Integumentary: No rashes Neurological: Normal speech, Normal tone, Normal affect Lymphatics: No axilla or inguinal lymphadenopathy External genitalia: Deferred Rectal: Deferred Assessment And Plan - Plan Assessment and Plan - Problems (Diagnosis) (1) Acute pancreatitis Current Visit: Yes Status: Acute (2) NSTEMI (non-ST elevated myocardial infarction) Current Visit: Yes Status: Acute (3) Acute on chronic heart failure Current Visit: Yes Status: Acute (4) Hypertensive emergency Current Visit: Yes Status: Acute (5) Essential hypertension Current Visit: Yes Status: Acute (6) History of subarachnoid hemorrhage Current Visit: Yes Status: Acute (7) Insulin dependent type 2 diabetes mellitus Current Visit: Yes Status: Acute - Plan Assessment plan Acute pancreatitis N.p.o., as needed analgesics, trend lipase, trended down and then up to 120s 07/23/24 No reported chest pain No abdominal pain NSTEMI Hypertensive emergency-end organ damage with NSTEMI Acute heart failure unknown baseline Essential hypertension Cardiology consult, telemetry, Plavix, Lopressor, aspirin as needed antihypertensive, lovenox 1 mg/kg every 12 Diuretics, resume home antihypertensive, metoprolol, Lasix,, nitro as needed analgesics, echo completed on Tuesday, decreased EF, global hypokinesis Daily weights, I&O, Trend troponins, lipid panel, Aspirin, antilipid, as needed analgesics, Rate is 72 beats/min. Rhythm is regular. QRS [place] is Normal. [place] interval is prolonged at 210 msec. QRS interval is normal. No Q waves. T waves are Normal. No ST changes noted. Clinical impression: NSR w/ Non-specific ST/T Changes, 1st degree heart block, and no evidence of ischemia 07/23/24 troponin level increased and then deflated, as patient is NPO will complete stress test this am Insulin-dependent diabetes mellitus Accu-Checks, sliding scale insulin, Resume long-acting insulin History of brain aneurysm, History of subarachnoid hemorrhage, No residual deficit Discharge Plan: Home 24h - Advance Directives Does patient have a Living Will: No Does patient have a Durable POA for Healthcare: No Discharge Plan: Home Plan to discharge in: 24 Hours - Code Status/Comfort Care Code Status Assessed: Yes (full) Time Spent Managing PTS Care (In Minutes): 35
--- NOTE | 2024-07-23 11:59 | P.PN ---
Subjective Date of Service: 07/23/24 Chief Complaint: Acute Heart Failure, NSTEMI Subjective: No new changes, No C/O voiced, Tolerating diet, Ambulating, Improving Review of Systems 10-point ROS is otherwise unremarkable Physical Examination - Vital Signs Temperature: 97.4 F Blood Pressure: 150/77 Pulse: 78 Respirations: 20 Pulse Ox (%): 97 - Physical Exam General: Alert, In no apparent distress HEENT: Atraumatic, PERRLA, EOMI Neck: Supple, JVD not distended Respiratory: Clear to auscultation bilaterally, Normal air movement Cardiovascular: Regular rate/rhythm, Normal S1 S2 Gastrointestinal: Normal bowel sounds, No tenderness Musculoskeletal: No tenderness Integumentary: No rashes Neurological: Normal speech, Normal tone, Normal affect Lymphatics: No axilla or inguinal lymphadenopathy - Studies Medications List Reviewed: Yes Assessment And Plan - Current Problems (Diagnosis) (1) Acute on chronic heart failure Current Visit: Yes Status: Acute Plan: Continue Lopressor 25 mg po BID Continue Benzapril 40 mg po daily continue aldactone 25 mg daily continue IV diuresis, may switch to lasix 40 mg po daily on discharge (2) Essential hypertension Current Visit: Yes Status: Acute Plan: adjust medications as above. (3) NSTEMI (non-ST elevated myocardial infarction) Current Visit: Yes Status: Acute Plan: patient got mild troponin leak, echo shows EF 50%, getting nuclear stress test today. ASA 81 mg daily Lipitor 40 mg daily
[2024-07-23] MEDS ORDERED: REGADENOSON 0.4 MG/5 ML SYR IV ONE (12:30)
--- NOTE | 2024-07-23 13:58 | RAD REPORT ---
EXAM: Nuclear medicine cardiac perfusion examination with ejection fraction HISTORY: Chest pain TECHNIQUE: Rest images: 8.8 mCi technetium 99m sestamibi Stress images: 28.0 mCi of technetium 99m sestamibi; Lexiscan COMPARISON: None FINDINGS: Tomographic images: No fixed or reversible perfusion defects. Mild attenuation of tracer uptake along the inferior wall on both rest and stress images is favored to be artifactual. Gated images: Normal wall motion and ejection fraction of 44%. EDV: 198 mL ESV: 110 mL TID: 194 IMPRESSION: No scintigraphic evidence of myocardial ischemia. Left ventricular ejection fraction is mildly reduced:44%
--- NOTE | 2024-07-23 14:51 | P.DS ---
Admission Date: 07/20/24 Discharge Date: 07/23/24 Disposition: ROUTINE DISCHARGE Discharge Condition: GOOD Reason for Admission: Acute Heart Failure, NSTEMI Consultations: Dr. Ness and Dr. Fields Procedures: Nuclear Medicine Stress Test Vital Signs/Physical Exam: Temp Pulse Resp BP Pulse Ox 97.2 F 84 18 138/78 97 07/23/24 12:00 07/23/24 12:00 07/23/24 12:00 07/23/24 12:00 07/23/24 12:00 General: Alert, In no apparent distress, Oriented x3 HEENT: Atraumatic, Normocephalic, PERRLA Neck: 2+ carotid pulse no bruit Respiratory: Normal air movement Cardiovascular: Regular rate/rhythm, Normal S1 S2 Capillary refill: <2 Seconds Gastrointestinal: Normal bowel sounds, Soft and benign Musculoskeletal: No clubbing, No swelling Integumentary: No rashes Neurological: Normal speech, Normal tone, Normal affect Lymphatics: No axilla or inguinal lymphadenopathy External genitalia: Deferred Rectal: Deferred Laboratory Data at Discharge: WBC 5.60 thou/uL (4.3-10.9) 07/23/24 05:25 Hgb 13.5 g/dL (13.6-17.9) L 07/23/24 05:25 Hct 38.7 % (39.6-49.0) L 07/23/24 05:25 Plt Count 243 thou/uL (152-406) 07/23/24 05:25 PT 11.6 SECONDS (9.4-12.5) 07/20/24 11:15 INR 1.04 07/20/24 11:15 Sodium 140 mEq/L (136-145) 07/23/24 05:25 Potassium 3.6 mEq/L (3.5-5.1) 07/23/24 05:25 BUN 27 mg/dL (7-18) H 07/23/24 05:25 Creatinine 1.16 mg/dL (0.70-1.30) 07/23/24 05:25 Glucose 177 mg/dL (74-106) H 07/23/24 05:25 Magnesium 2.1 mg/dL (1.6-2.4) 07/23/24 05:25 Total Bilirubin 0.4 mg/dL (0.2-1.0) 07/20/24 11:15 AST 23 U/L (15-37) 07/20/24 11:15 ALT 37 U/L (16-61) 07/20/24 11:15 Alkaline Phosphatase 62 U/L (45-117) 07/20/24 11:15 Lipase 143 U/L (13-75) H 07/23/24 05:25 Home Medications: Benazepril HCl [Lotensin] 40 mg PO BID 11/17/23 Metformin HCl 1,000 mg PO BID 11/17/23 Metoprolol Tartrate 25 mg PO BID #60 tab 11/17/23 Potassium Chloride 10 meq PO BEDTIME 11/17/23 glipiZIDE [Glipizide] 5 mg PO BID 11/17/23 hydroCHLOROthiazide [Hydrochlorothiazide*] 25 mg PO DAILY 07/21/24 Furosemide [Lasix] 40 mg PO DAILY #90 tab 07/23/24 Metoprolol Tartrate [Lopressor*] 25 mg PO BID #0 tab 07/23/24 Spironolactone [Aldactone*] 25 mg PO DAILY #90 tab 07/23/24 New Medications: Spironolactone [Aldactone*] 25 mg PO DAILY #90 tab Furosemide [Lasix] 40 mg PO DAILY #90 tab Physician Discharge Instructions: [facility] Call Keiry Conner at [phone] for questions or concerns after discharge. Expect a call within 1-2 business days of discharge. Alternate: Laura Elam at [phone] ECHO: 07/20/24 2 DIMENSIONAL ASSESSMENT: RIGHT ATRIUM: NORMAL LEFT ATRIUM: ENLARGED RIGHT VENTRICLE: NORMAL LEFT VENTRICLE: MILD LEFT VENTRICULAR HYPERTROPHY TRICUSPID VALVE: MILD TRICUSPID REGURGITATION MITRAL VALVE: MILD MITRAL REGURGITATION, NORMAL PULMONIC VALVE: NORMAL AORTIC VALVE: NORMAL PERICARDIAL EFFUSION: NONE AORTIC ROOT: NORMAL LEFT VENTRICULAR WALL MOTION: MILD GLOBAL HYPOKINESIS DOPPLER/COLOR FLOW: SEE BELOW COMMENTS: 1. LOW NORMAL LEFT VENTRICULAR EJECTION FRACTION 50% 2. MILD GLOBAL HYPOKINESIS 3. MODERATE DIASTOLIC DYSFUNCTION 4. SEVERE PULMONARY HYPERTENSION WITH RIGHT VENTRICULAR SYSTOLIC PRESSURE GREATER THAN 60 mmHg 5. LEFT ATRIAL ENLARGEMENT 6. MILD MITRAL REGURGITATION, TRICUSPID REGURGITATION Nuclear medicine stress test: 07/23/24 IMPRESSION: No scintigraphic evidence of myocardial ischemia. Left ventricular ejection fraction is mildly reduced:44% Diet: ADA Activity: Ad merrick Followup: Rambo Condon, [Primary Care Provider] - Marquis Fields MD [ACTIVE - CAN ADMIT] -
[2024-07-23 16:53] VITALS: BP 140/81; TEMP 97.8
--- NOTE | 2024-07-24 07:01 | TREADPHA ---
DX: NEW ONSET CONGESTIVE HEART FAILURE Date of Study: 07/23/2024 Ht: 6' 0 " Wt: 220 lb 14.4 oz Consulting Physician: ALVIN MEDICATIONS: TYLENOL, NORCO, XANAX, ASPIRIN, LOTENSIN, DEXTROSE, LASIX, GLUCAGEN, APRESOLINE, NOVOLIN 70/30, NOVOLIN R, LOPRESSOR, MORPHINE, NITROSTAT, ZOFRAN, KLOR-CON, CRESTOR, ALDACTONE HISTORY: 74 YEAR OLD MALE HERE FOR NEW ONSET CONGESTIVE HEART FAILURE. PHYSICIAL EXAMINATION: RESTING B.P.: 173/81 RESTING H.R.: 81 RESTING EKG: SINUS RHYTHM PROTOCOL: PHARMACOLOGIC EXERCISE TIME: 3:30 B.P. AT PEAK STRESS: 171/77 IMPRESSION: LEXISCAN INJECTED. CARDIOLITE INJECTED - SEE NUCLEAR MEDICINE REPORT. NO CHEST PAIN. PREMATURE VENTRICULAR COMPLEXES THROUGHOUT/ COUPLETS. NO VENTRICULAR TACHYCARDIA. NO SUPRAVENTRICULAR TACHYCARDIA.
--- NOTE | 2024-07-24 13:06 | EKG ---
Test Date: 2024-07-20 Test Time: 10:55:33 Pipe Stem Repairer: STEF MEASUREMENT RESULTS: Intervals: Rate: 72 NC: 210 QRSD: 96 QT: 396 QTc: 433 [place]: P: 48 NC: 210 QRS: 36 T: 41 INTERPRETIVE STATEMENTS: Sinus rhythm with 1st degree AV block Nonspecific T wave abnormality Abnormal ECG Compared to ECG 11/16/2023 17:51:53 First degree AV block now present Left ventricular hypertrophy no longer present T-wave abnormality still present Electronically Signed On 07-24-24 12:53:50 CDT by Marquis Fields
--- NOTE | 2024-07-25 07:51 | P.CNS ---
Date of Consult: 07/23/24 Reason for Consult: Pulmonary hypertension Chief Complaint: Acute Heart Failure, NSTEMI History of Present Illness: Patient is 74 years of age admitted with acute onset of shortness of breath which started on Tuesday denies any previous history of pulmonary complaints also has some lower extremity edema admitted with a diagnosis of heart failure and presumed secondary pulmonary hypertension prior history of coronary artery disease he is feeling much better Allergies iodine Allergy (Intermediate, Verified 11/16/23 21:57) BREATHING PROBLEMS cefoxitin sodium [From Mefoxin] Allergy (Mild, Verified 11/16/23 21:57) Shortness of breath tramadol Allergy (Verified 11/16/23 21:57) Anaphylaxis Proton Pump [place] Allergy (Unknown, Uncoded 12/23/16 15:35) Unknown Home Medications: Benazepril HCl [Lotensin] 40 mg PO BID 11/17/23 Metformin HCl 1,000 mg PO BID 11/17/23 Metoprolol Tartrate 25 mg PO BID #60 tab 11/17/23 Potassium Chloride 10 meq PO BEDTIME 11/17/23 glipiZIDE [Glipizide] 5 mg PO BID 11/17/23 Furosemide [Lasix] 40 mg PO BIDL #60 tab 07/23/24 Furosemide [Lasix] 40 mg PO DAILY #90 tab 07/23/24 Metoprolol Tartrate [Lopressor*] 25 mg PO BID #0 tab 07/23/24 Spironolactone [Aldactone*] 25 mg PO DAILY #30 tab 07/23/24 Spironolactone [Aldactone*] 25 mg PO DAILY #90 tab 07/23/24 - Past Medical/Surgical History Diabetic: Yes -: Hypertension -: Diabetes mellitus type 2 -: GI Bleed -: Acute CVA-hemorrhagic -: UTI -: Cardiac catheterization -: shoulder surgery -: knee surgery -: Appendectomy - Family History Mother Medical History: Hypertension Father Medical History: Diabetes - Social History Smoking Status: Never smoker Alcohol use: No CD- Drugs: No Caffeine use: Yes Place of Residence: Home Review of Systems 10-point ROS is otherwise unremarkable Physical Examination Temp Pulse Resp BP Pulse Ox 97.8 F 93 H 18 140/81 97 07/23/24 16:00 07/23/24 16:00 07/23/24 16:00 07/23/24 16:00 07/23/24 16:00 General: Alert, Oriented x3 HEENT: Atraumatic Neck: Supple Respiratory: Clear to auscultation bilaterally Cardiovascular: No edema, Regular rate/rhythm, Normal S1 S2 Gastrointestinal: Normal bowel sounds, Soft and benign, Non-distended Musculoskeletal: No clubbing, No swelling - Problems (1) Acute on chronic heart failure Status: Acute Plan: Patient is 74 years of age admitted with acute onset of dyspnea lower extremity edema elevated BNP consistent with congestive heart failure echocardiogram results below chest x-ray consistent with heart failure LOW NORMAL LEFT VENTRICULAR EJECTION FRACTION 50% 2. MILD GLOBAL HYPOKINESIS 3. MODERATE DIASTOLIC DYSFUNCTION 4. SEVERE PULMONARY HYPERTENSION WITH RIGHT VENTRICULAR SYSTOLIC PRESSURE GREATER THAN 60 mmHg 5. LEFT ATRIAL ENLARGEMENT 6. MILD MITRAL REGURGITATION, TRICUSPID REGURGITATIO I suspect the pulmonary hypertension is secondary to heart failure plan to dicathye stress test did not show any evidence of core of ischemia rewith a combination of diuretics vital signs oxygenation all stable labs chest x-rays all reviewed Qualifiers: Heart failure type: combined systolic and diastolic Qualified Code(s): I50.43 - Acute on chronic combined systolic (congestive) and diastolic (congestive) heart failure
== END 2024-07-23 17:00 | disposition home or self-care (01) | DRG 280 ==
LOC: ER 09:09 → ERHOLD 12:59 → 2ND 15:55
PROVIDERS: ADMIT Hospitalist; ATTEND Hospitalist
DX: I11.0 Hypertensive heart disease with heart failure (principal); I50.33 Acute on chronic diastolic (congestive) heart failure; I21.A1 Myocardial infarction type 2; K85.90 Acute pancreatitis without necrosis or infection, unspecified; I16.1 Hypertensive emergency; I44.0 Atrioventricular block, first degree; E78.5 Hyperlipidemia, unspecified; E11.9 Type 2 diabetes mellitus without complications; E66.9 Obesity, unspecified; I27.20 Pulmonary hypertension, unspecified; I25.10 Atherosclerotic heart disease of native coronary artery without angina pectoris; Z79.4 Long term (current) use of insulin; Z68.30 Body mass index [BMI] 30.0-30.9, adult; Z79.84 Long term (current) use of oral hypoglycemic drugs; Z90.49 Acquired absence of other specified parts of digestive tract; Z79.899 Other long term (current) drug therapy
CPT/HCPCS: 36415; 71045; 78452; 80048; 80076; 81001; 82550; 82947; 83690; 83735; 83880; 84484; 85025; 85610; 93005; 93017; 93306; 96361; 96372; 96374; 99285; A9500; J0360; J1650; J1815; J1940; J2785; J7030